=== PATIENT | male | born 1965 | race Two or more races ===

== ENCOUNTER 2023-11-05 08:04 | Outpatient (AMB) | payer MEDICAID, SELFPAY ==
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
[2023-11-05 08:18] VITALS: BMI 24.2
== END 2023-11-05 08:40 | disposition home or self-care (01) ==
PROVIDERS: PCP Internal Medicine; Referring Provider Internal Medicine; Visit Provider Orthopaedic Surgery
DX: M25.512 Pain in left shoulder (principal)
CPT/HCPCS: 99202

== ENCOUNTER 2023-11-05 09:02 | Outpatient (REF) | payer MEDICAID, OTHER, SELFPAY ==
--- NOTE | ~2023-11-05 | XR_ITS ---
EXAMINATION: XR SHOULDER, LEFT CLINICAL INFORMATION: Pain. COMPARISON: None available. TECHNIQUE: AP neutral and scapular Y views of the left shoulder are submitted. FINDINGS: Bony alignment and mineralization are normal. The glenohumeral joint is intact and shows mild osteoarthritic change. There is step-off of the acromioclavicular joint by one shaft width. The coracoclavicular interval is normal and shows coarse calcifications. 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 No acute fracture or dislocation is seen. There is no soft tissue calcification or foreign body. There is cortical irregularity and subcortical cyst formation of the greater tuberosity of the proximal left humerus. No soft tissue calcification or foreign body is seen. There is no left pneumothorax. XR/XR shoulder LT min 2V IMPRESSION: 1. There is mild osteoarthritic change of the left glenohumeral joint. 2. 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 3. Findings suggest left rotator cuff impingement, without hiro calcific tendinitis noted.
== END 2023-11-05 09:03 | disposition home or self-care (01) ==
LOC: HO.HOSX 09:02
PROVIDERS: Visit Provider Orthopaedic Surgery
DX: M25.512 Pain in left shoulder (principal)
CPT/HCPCS: 73030; 99202

== ENCOUNTER 2023-12-15 08:20 | Outpatient (REF) | payer MEDICAID, SELFPAY ==
[2023-12-15 14:32] LABS: MANUAL DIFF FLAG NO
[2023-12-15 14:40] LABS: Basophils Percent Auto 0.4 % (0-2); Eosinophils Absolute Auto 0.1 X10*3/uL (0.0-0.4); Eosinophils Percent Auto 1.6 % (0-4); Hematocrit 40.8 % (42.0-52.0); Hemoglobin 12.6 g/dl (14.0-18.0); Imm Gran Abs Auto 0.01 X10*3/uL (0.00-0.03); Imm Gran Pct Auto 0.2 % (0.0-0.4); Lymphocytes Absolute Auto 1.5 X10*3/uL (1.2-4.9); Lymphocytes Percent Auto 27.7 % (20-40); Mean Corpuscular HGB Conc 30.9 g/dl (31.0-36.0); Mean Corpuscular Hemoglobin 22.9 pg (27.0-33.0); Monocytes Absolute Auto 0.5 X10*3/uL (0.1-1.2); Monocytes Percent Auto 9.3 % (2-11); Neutrophils Absolute Auto 3.3 x10*3/uL (2.0-8.3); Neutrophils Percent Auto 60.8 % (45-73); Platelet Count 205 X10*3/uL (160-400); Red Blood Count 5.51 X10*6/uL (4.60-5.80); Red Cell Distribution Width 15.9 % (11.0-16.0); White Blood Count 5.5 X10*3/uL (4.8-10.8)
[2023-12-15 15:00] LABS: Alanine Aminotransferase 21 U/L (0-40); Albumin Level 4.3 g/dL (3.5-5.0); Alkaline Phosphatase 91 U/L (39-117); Anion Gap 14 (12-20); Aspartate Amino Transferase 26 U/L (5-37); Bilirubin Total 0.8 mg/dL (0.0-1.0); Blood Urea Nitrogen 15 mg/dL (9-16); Calcium 9.6 mg/dL (8.4-10.2); Carbon Dioxide 27 mmol/L (22-29); Chloride 104 mmol/L (96-108); Cholesterol 188 mg/dL (<200); Estimated Glomerular Filt Rate > 60; Glucose Random 77 mg/dL (60-115); HDL Cholesterol 70 mg/dL (>40); LDL Cholesterol Calculated 105 mg/dL (<100); Potassium 4.4 mmol/L (3.3-5.1); Sodium 141 mmol/L (135-145); Total Protein 7.3 g/dL (6.5-8.0); Triglycerides 66 mg/dL (<150)
[2023-12-15 15:17] LABS: TSH reflex Free T4 2.03 uIU/mL (0.32-4.0)
[2023-12-16 09:42] LABS: HIV AB/AG Nonreactive (Nonreactive); HIV Num 1 0.05 S/CO (0.00-0.99); ~HepC Num1 0.11 S/CO (0.00-0.79); ~Hepatitis C Antibody Nonreactive (Nonreactive)
== END 2023-12-15 08:21 | disposition home or self-care (01) ==
LOC: HO.CHCLDS 08:20
PROVIDERS: Visit Provider Family Medicine
DX: R03.0 Elevated blood-pressure reading, without diagnosis of hypertension (principal); Z13.29 Encounter for screening for other suspected endocrine disorder
CPT/HCPCS: 36415; 80053; 80061; 84443; 85025; 86803; 87389

== ENCOUNTER 2023-12-23 08:52 | Outpatient (AMB) | payer MEDICAID, SELFPAY ==
[2023-12-23 08:58] VITALS: BMI 24.2
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
== END 2023-12-23 09:16 | disposition home or self-care (01) ==
PROVIDERS: PCP Internal Medicine; Visit Provider Orthopaedic Surgery
DX: M75.42 Impingement syndrome of left shoulder (principal); M75.120 Complete rotator cuff tear or rupture of unspecified shoulder, not specified as traumatic; M19.012 Primary osteoarthritis, left shoulder
CPT/HCPCS: 99213

== ENCOUNTER → 2023-12-23 08:52 | Outpatient (BNVA) | payer MEDICAID, SELFPAY | PROVIDERS: PCP Internal Medicine; Visit Provider Orthopaedic Surgery | DX: M25.512 Pain in left shoulder (principal) | CPT/HCPCS: 99212 ==

== ENCOUNTER 2024-01-09 09:03 | Outpatient (AMB) | payer MEDICAID, SELFPAY ==
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
[2024-01-09 10:23] VITALS: BMI 24.2
== END 2024-01-09 11:04 | disposition home or self-care (01) ==
PROVIDERS: PCP Internal Medicine; Referring Provider Internal Medicine; Visit Provider Orthopaedic Surgery
DX: M75.102 Unspecified rotator cuff tear or rupture of left shoulder, not specified as traumatic (principal)
CPT/HCPCS: 99214

== ENCOUNTER → 2024-01-09 09:03 | Outpatient (BNVA) | payer MEDICAID, SELFPAY | PROVIDERS: PCP Internal Medicine; Visit Provider Orthopaedic Surgery | DX: M75.102 Unspecified rotator cuff tear or rupture of left shoulder, not specified as traumatic (principal) | CPT/HCPCS: 99212 ==

== ENCOUNTER 2024-01-28 07:00 | Day surgery (SDC) | payer MEDICAID, SELFPAY ==
[2024-01-26 07:51] VITALS: BMI 24.2
[2024-01-28] VITALS (7 sets, daily range): BP systolic 136–158; BP diastolic 50–87; PULSE 45–55; RESP 12–16; TEMP 36.1–36.2; O2SAT 94–97; BMI 24.3
[2024-01-28] MEDS: Lactated Ringers 1,000 ML 50 ML IVCONT (07:54)
--- NOTE | 2024-01-28 09:00 | P.CONAN_ITS ---
HPI - Anesthesia Eval Consult details Narrative: 58 yo M presenting for left arthroscopic rotator cuff repair PMFSH Active Problems Active Problems: All Active Problems Rotator cuff tear, left (Acute) Left shoulder pain (Acute) Past Medical History Medical History (Updated 01/28/24 @ 07:12 by Janine Barboza RN) Asthma Family History Family history of problems with anesthesia: No Surgical History Surgical History (Updated 01/28/24 @ 07:14 by Janine Barboza RN) History of facial surgery Hx of shoulder surgery History of Problems with Anesthesia: No Social History Social History Patient Tobacco Use Status: Current someday Tobacco user Tobacco use type: Cigarette Use of substances other than those prescribed or required for medical reasons: No Are you DNR?: No Advance Directives: No Advance Directives Information Provided: Yes Current occupational status: employed Current occupation: [employer], Right hand dominant Meds Allergies Allergy/AdvReac Type Severity Reaction Status Date / Time No Known Allergies Allergy Verified 01/28/24 07:14 [No Known Allergies*] Active Medications: Current Medications Lactated Ringer's (Lr) 1,000 mls @ 50 mls/hr IVCONT .Q20H CANDACE Last Admin: 01/28/24 07:54 Dose: 50 mls/hr Home Medications ?Medication ?Instructions ?Recorded ?Confirmed ?Last Taken ?Type bupropion HCl 150 mg 24 hr tablet, 150 mg PO QAM 11/05/23 01/28/24 Unknown History extended release hydroxyzine HCl 50 mg tablet 50 mg PO BEDTIME 11/05/23 01/28/24 Unknown History quetiapine 100 mg tablet 100 mg PO DAILY 11/05/23 01/28/24 Unknown History albuterol sulfate 90 mcg/actuation 2 puff inhalation Q4H PRN wheezing 01/28/24 01/28/24 Unknown History aerosol inhaler (Ventolin HFA) multivit,Ca,min-iron 8 mg-folic 1 tab PO DAILY 01/28/24 01/28/24 Unknown History acid 200 mcg-lycopene 600 mcg tablet (Centrum Men) Exam Exam Date and Time: January 28, 2024 0845 Height,Weight and Vital Signs: Height 5 ft 6 in Weight 68.22 kg Last Vital Signs Temp 97.2 F 01/28/24 07:37 Pulse 50 01/28/24 07:37 Resp 15 01/28/24 07:37 BP 136/75 01/28/24 07:37 Pulse Ox 97 01/28/24 07:37 O2 Del Method Room Air 01/28/24 07:37 Airway Mallampati Class: I TM Dist: >3cm Neck ROM: Full Denture: Upper Loose/Missing/Broken Teeth: Yes (multiple missing teeth bottom jaw) Heart: S1S2 Lungs: CTAB Assessment and Plan Assessment Anesthesia Assessment: Anesthesia Plan Discussed and Chart Reviewed Final Anesthetic Review Family History of Problems with Anesthesia: No History of Problems with Anesthesia: No NPO: Yes ASA Class: II Final Preanesthetic Review: No Changes in Pt Med Stat, Meds/Allgs Chart Reviewed, Consent Obtained/Reviewed (nursing informatics specialist at bedside) and Anes Risks/Benef Reviewed Patient Risk: Low Procedure Risk: Intermediate Anesthetic Plan Anesthetic Plan: GA, Regional Block (left brachial plexus block) and Agree w/ Assess. and Plan Disposition: Standard PACU
--- NOTE | 2024-01-28 09:12 | MHC.SHP ---
Pre-Procedural Eval Section A - 24 Hr Update-Section A only Date of Service: 01/28/24 The patient is an INPATIENT: No Changes since office visit: No Cold of Flu in the past 2 weeks, No New Medical Problems, No Changes in Medication and No Patient answered all questions The patient has been examined within 24 hours of the surgical procedure. The History & Physical has been completed within 30 days and I have reviewed it.: Yes Section B - Complete if H&P > 30 days Chief Complaint: Complete rotator cuff tear or rupture Allergies: Allergies Allergy/AdvReac Type Severity Reaction Status Date / Time No Known Allergies Allergy Verified 01/28/24 07:14 [No Known Allergies*] Plan I have reviewed the history and physical and performed a pertinent physical examination on my patient. No changes have occurred unless specified. Time Spent With Patient Time: Total time managing care of this patient today ____ minutes.
--- NOTE | 2024-01-28 11:54 | PM.OP ---
Brief Operative Note Date of Service: 01/28/24 Pre-op diagnosis: left shoulder rtc re-tear Post-op diagnosis: same Procedure: Revision right rotator cuff tear Implants: De Paz and nephew Helacoil 5.5 x 2 and 4.75 double loaded helacoil x 2 Regeneten medicum bioinductive collagen graft Surgeon: Anton Sauceda MD Anesthesia: GETA and regional Was an Electro Optical Engineer used for this Procedure?: No Estimated blood loss (mL): 25 IV fluids (mL): 1,000 Pathology: none sent Condition: stable Disposition: PACU
--- NOTE | 2024-02-23 14:17 | W.PM.OPN ---
Operative Note Operative Note Date of Service: 01/28/24 Narrative: Date of Service: 01/28/24 Pre-op diagnosis: left shoulder rtc re-tear Post-op diagnosis: same Procedure: Revision right rotator cuff tear Implants: De Paz and nephew Helacoil 5.5 x 2 and 4.75 double loaded helacoil x 2 Regeneten medicum bioinductive collagen graft Surgeon: Anton Sauceda MD Anesthesia: GETA and regional Was an Theater Usher used for this Procedure?: No Estimated blood loss (mL): 25 IV fluids (mL): 1,000 Pathology: none sent Condition: stable Disposition: PACU Procedure in detail: Patient was brought to the operating room and placed the the beach chair position. All bony prominences were well padded and the limb was prepped and draped in standard sterile fashion. A time out was called to identify proper site, proper procedure and proper surgeon. IV antibiotics per weight were administered. I began by making a posterolateral stab incision with a 15 blade. A blunt trochar was placed into the glenohumeral joint and I insufflated the joint with saline and a 30 degree arthroscope was placed. I established an outside- in anterior portal just distal to the biceps tendon. I then began my inspection of the glenohumeral joint. The biceps had already been tenotomized and there was obvious undersurface rotator cuff tearing. The cartilage surfaces were normal. I debrided slightly the anterior interval. The subscapularis was intact. I then removed the trochar and entered the subacromial space. A direct lateral portal was then established and I performed a bursectomy. The cuff was then examined. There was a full thickness tear of the supraspinatus without retraction. There was evidence of prior surgery with suture and suture anchor present. I removed the extraneous suture material and the suture anchors and examined the cuff. There was a full-thickness tear of the supraspinatus without retraction but the quality of the tissue was poor. The tear was mobile. I placed two medial row double loaded anchors after using a tap just adjacent to the articular cartilage and then brought the suture limbs ( 8) through the medial cuff. I then debrided the bare area down to bleeding bone and, using a cross bridge configuration, brought 4 limbs to each of two lateral 5.0 anchors. This re-approximated the cuff anatomy anatomically. Given the tissue quality I elected to place a Regeneten collagen bio inductive patch over the repair. Peak tereza were used to adhere this to the medial cuff and bone anchors laterally. This was placed through a direct lateral portal. Once I was satisfied with the repair final images were captured and I removed all instrumentation. Portals were closed with nylon. Patient was placed in an abduction sling, extubated and brought to the recovery room in stable condition. There were no known complications.
== END 2024-01-28 13:41 | disposition home or self-care (01) ==
PROVIDERS: PCP Family Medicine; Visit Provider Orthopaedic Surgery
PROC: (CPT 29827; principal; 2024-01-28 09:40)
DX: M75.120 Complete rotator cuff tear or rupture of unspecified shoulder, not specified as traumatic (principal); M25.512 Pain in left shoulder; M62.81 Muscle weakness (generalized); Z98.890 Other specified postprocedural states; J45.909 Unspecified asthma, uncomplicated; Z79.899 Other long term (current) drug therapy; F17.210 Nicotine dependence, cigarettes, uncomplicated
CPT/HCPCS: 29827; C1713; C1763; J0131; J0171; J0690; J1100; J2250; J2405; J2704; J2795; J3010

== ENCOUNTER → 2024-01-28 07:00 | Outpatient (BNV) | payer MEDICAID, SELFPAY | PROVIDERS: PCP Family Medicine; Visit Provider Orthopaedic Surgery | DX: S46.012A Strain of muscle(s) and tendon(s) of the rotator cuff of left shoulder, initial encounter (principal) | CPT/HCPCS: 29827 ==

== ENCOUNTER 2024-02-05 13:18 | Outpatient (AMB) | payer MEDICAID, SELFPAY ==
--- NOTE | 2024-02-05 13:34 | MHC.OFFVIS ---
Intake Visit Reasons: PO LT RTC Repair 01/28/24 NE Intake Note: Raheem is a 58 year old right hand dominant male who presents today for a post op appointment s/p left RTC repair 01/28/24 NE. Patient reports he is still having pain. He expressed that he slipped and fell in the bathroom on 02/02/24 and it caused him more pain. Allergies No Known Allergies [No Known Allergies*] Allergy (Verified 02/05/24 13:46) HPI HPI PO LT RTC Repair 01/28/24 NE: Details: 58-year-old right hand dominant male, who is Chilean speaking, presents in the office today 8 days status post left shoulder rotator cuff repair, which was performed on 01/28/[address] Sauceda. ? ? While in the office today, the patient reports he fell in the bathroom after giving his granddaughter on 02/02/2024. He states this caused him an increase in pain. ? ? Patient reports physical therapy has not contacted him yet.? ? Patient reports that when he fell in the bathroom, he hit his right elbow. ? ? Patient reports working at [employer] and would like to discuss returning to work at the end of the month. He states he is working to maintain less hours. ? [facility] Medical History (Updated 01/28/24 @ 07:12 by Janine Barboza RN) Asthma Surgical History (Updated 02/05/24 @ 15:25 by Trinity Blanton) History of facial surgery Hx of shoulder surgery Social History Patient Tobacco Use Status: Current someday Tobacco user Tobacco use type: Cigarette Current occupational status: employed Current occupation: [employer], Right hand dominant Review of Systems Const All systems reviewed & are unremarkable except as noted in HPI and below Physical Exam Const General: cooperative, healthy appearing and no acute distress Resp Effort & Inspection: normal respiratory effort and able to speak in complete sentences Cardio Rate: regular rate Peripheral pulses: Peripheral pulses 2+ throughout GI Palpation (GI): Soft to palpation Skin Lesions: no lesions Rashes: no rashes Extrem Other: Left shoulder: Incision site is clean, dry, and intact. Sutures are intact. No surrounding erythema or drainage. No signs of infection. Forward flexion and abduction to 45 degrees. External rotation to neutral. NVI.? Assessment & Plan Assessment & Plan (1) S/P left rotator cuff repair: Comment: 01/28/2024 NE Code(s): Z98.890 - Other specified postprocedural states Category: Surgical Plan Mr. Kip Haynes is a 58-year-old right hand dominant male, who is Chilean speaking, presents in the office today 8 days status post left shoulder rotator cuff repair, which was performed on 01/28/[address] Sauceda. ? ? While in the office today, the patient reports he fell in the bathroom after giving his granddaughter on 02/02/2024. He states this caused him an increase in pain. ? ? Patient reports physical therapy has not contacted him yet.? ? Patient reports that when he fell in the bathroom, he hit his right elbow. ? ? Patient reports working at [employer] and would like to discuss returning to work at the end of the month. He states he is working to maintain less hours.? ? Sutures were removed and steri-stripes were applied. At this time, the patient is not currently scheduled for physical therapy. The office will reach out to the physical therapy office?to get the patient scheduled as soon as possible to work on gentle ROM. A new order was placed today. I discussed with the patient that we anticipate he will remain out of work for a minimum of three months, which could be extending. The patient presented to the office today without the abduction pillow attached to the sling. We educated the patient on how important this was for proper healing of the left rotator cuff repair. We offered the patient to come into the office for a sling fitting adjustment if needed. A refill of oxycodone-acetaminophen 5-325 mg PO Q4H PRN was sent to the pharmacy. Follow-up will be in four weeks with Dr. Sauceda, or sooner if needed. ? Orders: Orders PT Evaluation and Treatment 02/05/24 M75.102 - Unspecified rotator cuff tear or rupture of left shoulder, not specified as traumatic Medications: Refilled oxycodone-acetaminophen 5-325 mg (Percocet) Partial Fill upon patient request. 1 tab PO Q4H PRN 30 tabs 0RF pain Patient Instructions: Scribed by Trinity Blanton medical clerical assistant, for Shakira Chavis PA-C on 02/05/2024 at 3:02 pm, EST.? Coding Level of Care Code Global (20140) Diagnoses S/P left rotator cuff repair Z98.890
== END 2024-02-05 14:15 | disposition home or self-care (01) ==
PROVIDERS: PCP Internal Medicine; Visit Provider Physician Assistant
DX: Z98.890 Other specified postprocedural states (principal)
CPT/HCPCS: 99024

== ENCOUNTER → 2024-02-05 13:18 | Outpatient (BNVA) | payer MEDICAID, SELFPAY | PROVIDERS: PCP Internal Medicine; Visit Provider Physician Assistant | DX: Z47.89 Encounter for other orthopedic aftercare (principal); Z98.890 Other specified postprocedural states | CPT/HCPCS: 99212 ==

== ENCOUNTER 2024-02-20 11:32 | Outpatient (AMB) | payer MEDICAID, SELFPAY ==
[2024-02-20 11:34] VITALS: BP 134/79; PULSE 76; BMI 25.8
--- NOTE | 2024-02-20 11:34 | MHC.OFFVIS ---
Vital Signs 02/20/24 11:34 Height 5 ft 6 in Weight 160 lb 0.889 oz BMI 25.8 BP 134/79 Blood Pressure Location Lt brachial Position Sitting Pulse 76 Intake Visit Reasons: Colonoscopy screening Intake Note: Raheem presents in office as a new patient for colonoscopy screening. CC: Patient states that his last colonoscopy was done in [place] 5 years ago and they removed some polyps. He denies having any GI symptoms or concerns today. Log Chipper Required: Yes Log Chipper Name: [id number] Accompanied by: Self / Same As Patient Allergies No Known Allergies [No Known Allergies*] Allergy (Verified 04/07/24 09:16) HPI HPI Colonoscopy screening: Details: [age]old male here for preprocedural meeting to discuss a screening colonoscopy. He is referred by [facility]. PMX Asthma Schizophrenia Bipolar disorder Family history of colon cancer Chronic left shoulder pain * SURGICAL HISTORY Facial surgery Rotator cuff repair left shoulder Colonoscopy 5 years ago in [place] with polyps. * ALLERGIES: NKDA * [employer] LABS: Laboratory Tests 12/15/23 12/15/23 08:24 08:29 WBC 5.5 Hgb 12.6 L Hct 40.8 L MCV 74.0 L MCH 22.9 L Plt Count 205 Estimated GFR > 60 Total Bilirubin 0.8 AST 26 ALT 21 Alkaline Phosphatase 91 TSH 2.03 TODAY'S VISIT Nigerien # [employer] Live He says his last scope was 5 years ago in [place] and he had polyps. He denies any bowel or upper GI problems There are no prior problems with anesthesia or sedation. Asthma is well controlled and he denies any cardiac problems. NO ID problems. His father is a survivor of CRC and a paternal uncle. The patient had polyps removed. [facility] Medical History (Updated 04/16/24 @ 15:45 by SERENA Bacon) Left shoulder pain Rotator cuff tear, left Asthma Surgical History S/P left rotator cuff repair H/O colonoscopy History of facial surgery Hx of shoulder surgery Family History Father Colon cancer Paternal Uncle Stomach cancer Paternal Grandfather Stomach cancer Social History Alcohol intake: current Alcohol intake frequency: holidays/special occasions only Patient Tobacco Use Status: Current someday Tobacco user Tobacco use type: Cigarette Current occupational status: employed Current occupation: [employer], Right hand dominant Review of Systems Const Denies fatigue, Denies fever(s), Denies night sweats, Denies poor appetite and Denies weight loss Eyes Details: glasses Reports requires corrective lenses ENT Reports Normal hearing present, Denies dysphagia, Denies odynophagia, Denies throat swelling and Denies tongue swelling Card Reports no additional complaints Resp Reports no additional complaints GI Details: Denies abdominal pain, Denies melena, Denies bloating, Denies hematochezia, Denies constipation, Denies GI cramping, Denies dysphagia, Denies excessive flatus, Denies early satiety, Denies heartburn, Denies diarrhea, Denies nausea, Denies odynophagia, Denies vomiting and Denies hematemesis Skin/Breast Denies pruritus, Denies lesions, Denies rash and Denies jaundice Neuro Reports Normal hearing present and Denies Abnormal speech present Endo Denies fatigue Aller/Immun Denies throat swelling and Denies tongue swelling Physical Exam Vital Signs: Last Vital Signs Pulse 76 02/20/24 11:34 BP 134/79 02/20/24 11:34 BMI result Body Mass Index 25.8 Const General: cooperative, no acute distress, well developed and well groomed Nutritional Appearance: average body habitus and well nourished Orientation/consciousness: oriented to person, oriented to place and oriented to time Limitations: language barrier HEENT Head: Yes normocephalic and Yes atraumatic Teeth and gingiva: poor dentition Eyes General: appearance normal, both eyes and all related structures Pupils: Equal, round and reactive pupils present Neck Neck: Yes normal visual inspection and Yes no lymphadenopathy Thyroid: Thyroid normal Resp Effort & Inspection: normal respiratory effort and able to speak in complete sentences Auscultation: clear to auscultation bilaterally Cardio Rate: regular rate Rhythm: regular rhythm Heart sounds: Normal, physiologic split S2 sound present Peripheral pulses: radial pulses present and posterior tibial pulses present GI Inspection: No distended and No Abdominal panniculus present Palpation (GI): Soft to palpation, nontender, no guarding, not rigid and No hepatosplenomegaly present Percussion: Yes normal to percussion Auscultation: normal bowel sounds Rectal Exam - Male: Yes deferred Skin General skin exam: no rashes or lesions noted, turgor normal, skin not dry, no jaundice, No spider nevi and no striae Rashes: no rashes Nails: normal Neuro General: oriented to person, oriented to place and oriented to time Cranial nerves: Yes Equal, round and reactive pupils present and Yes Normal hearing present Speech: No Abnormal speech present Extrem General: Yes normal to inspection, No clubbing, No cyanosis and No edema Psych Appearance: grossly normal and well kempt Mental Status: mental status grossly normal Speech and movement: Normal speech and movement present Affect: normal affect Attitude: cooperative Thought process: Normal thought process present and not confabulating Thought content: Normal thought content present Insight: Limited insight present (Psych) Judgement: Limited judgement present (Psych) Assessment & Plan Assessment & Plan (1) Tubular adenoma of colon: Comment: 2019 in [place]=polyps per pt report Code(s): D12.6 - Benign neoplasm of colon, unspecified Category: Medical (2) Family history of colon cancer in father: Code(s): Z80.0 - Family history of malignant neoplasm of digestive organs Category: Medical Plan Nigerien # [employer] He says his last scope was 5 years ago in [place] and he had polyps. He denies any bowel or upper GI problems There are no prior problems with anesthesia or sedation. Asthma is well controlled and he denies any cardiac problems. NO ID problems. His father is a survivor of CRC and a paternal uncle. The patient had polyps removed. Orders: Orders Colonoscopy - GI Use Only 02/20/24 D12.6 - Benign neoplasm of colon, unspecified Medications: New peg 3350-electrolytes 236-22.74-6.74 -5.86 gram (Golytely) until fecal effluent is clear; do not exceed a total volume of 2,000 mL 240 mL PO Q10M 4,000 mL 0RF 1 day Z12.11 - Encounter for screening for malignant neoplasm of colon bisacodyl (Dulcolax (bisacodyl)) 10 mg (2 x 5 mg) PO BEDTIME 4 tabs 0RF 2 days Coding Level of Care Code New Pt Level 3 (30079) Diagnoses Tubular adenoma of colon D12.6 Family history of colon cancer in father Z80.0
== END 2024-02-20 11:59 | disposition home or self-care (01) ==
PROVIDERS: PCP Internal Medicine; Visit Provider Nurse Practitioner
DX: D12.6 Benign neoplasm of colon, unspecified (principal); Z80.0 Family history of malignant neoplasm of digestive organs
CPT/HCPCS: 99203

== ENCOUNTER → 2024-02-20 11:32 | Outpatient (BNVA) | payer MEDICAID, SELFPAY | PROVIDERS: PCP Internal Medicine; Visit Provider Nurse Practitioner | DX: Z01.818 Encounter for other preprocedural examination (principal); D12.6 Benign neoplasm of colon, unspecified; Z80.0 Family history of malignant neoplasm of digestive organs | CPT/HCPCS: 99212 ==

== ENCOUNTER 2024-03-05 10:51 | Outpatient (AMB) | payer MEDICAID, SELFPAY ==
[2024-03-05 10:53] VITALS: BMI 25.8
--- NOTE | 2024-03-05 10:53 | MHC.OFFVIS ---
Vital Signs 03/05/24 10:53 Height 5 ft 6 in Weight 160 lb 0.889 oz BMI 25.8 Intake Visit Reasons: PO LT RTC Repair 01/28/24 NE Intake Note: Raheem is a 58 year old right hand dominant male who presents today for a post op appointment s/p left RTC repair 01/28/24 NE. Patient took a a fall on 02/02/24 striking his elbow. He remains out of work at this time. Due to the fall, patient is complaining today of left elbow pain that radiates up the left arm. Patient reports he has been taking Percocet BID without relief. He would like to know what can be done for his pain as well as more details of what was done during his surgery. Allergies No Known Allergies [No Known Allergies*] Allergy (Verified 03/05/24 10:53) HPI HPI PO LT RTC Repair 01/28/24 NE: Details: Raheem is a 58 year old right hand dominant male who presents today for a post op appointment s/p left RTC repair 01/28/24 NE. Patient took a a fall on 02/02/24 striking his elbow. He remains out of work at this time. Due to the fall, patient is complaining today of left elbow pain that radiates up the left arm. Patient reports he has been taking Percocet BID without relief. He would like to know what can be done for his pain as well as more details of what was done during his surgery. [facility] Medical History (Updated 02/20/24 @ 11:53 by SERENA Bacon) Left shoulder pain Rotator cuff tear, left Asthma Surgical History (Updated 03/05/24 @ 11:05 by Anton Sauceda MD) S/P left rotator cuff repair H/O colonoscopy History of facial surgery Hx of shoulder surgery Family History Father Colon cancer Paternal Uncle Stomach cancer Paternal Grandfather Stomach cancer Social History Alcohol intake: current Alcohol intake frequency: holidays/special occasions only Patient Tobacco Use Status: Current someday Tobacco user Tobacco use type: Cigarette Current occupational status: employed Current occupation: [employer], Right hand dominant Physical Exam Vital Signs: BMI result Body Mass Index 25.8 Extrem Other: 90/70/120 portals c/d/i Assessment & Plan Assessment & Plan (1) S/P left rotator cuff repair: Comment: 01/28/2024 NE Code(s): Z98.890 - Other specified postprocedural states Category: Medical Plan: Doing well and states he is attending PT F/u 6 weeks No lifting Coding Level of Care Code Global (41022) Diagnoses S/P left rotator cuff repair Z98.890
== END 2024-03-05 11:04 | disposition home or self-care (01) ==
PROVIDERS: PCP Internal Medicine; Visit Provider Orthopaedic Surgery
DX: Z98.890 Other specified postprocedural states (principal)
CPT/HCPCS: 99024

== ENCOUNTER → 2024-03-05 10:51 | Outpatient (BNVA) | payer MEDICAID, SELFPAY | PROVIDERS: PCP Internal Medicine; Visit Provider Orthopaedic Surgery | DX: Z47.89 Encounter for other orthopedic aftercare (principal); Z98.890 Other specified postprocedural states; Z91.81 History of falling; Z87.39 Personal history of other diseases of the musculoskeletal system and connective tissue | CPT/HCPCS: 99212 ==

== ENCOUNTER 2024-03-22 14:02 | Outpatient (REF) | payer MEDICAID, SELFPAY ==
--- NOTE | ~2024-03-22 | US_ITS ---
EXAMINATION: US PELVIS, LIMITED/FOLLOW UP CLINICAL INFORMATION: Left inguinal pain. COMPARISON: None available. TECHNIQUE: High frequency linear ultrasound transducer exam in the area of clinical concern in the left groin. This study was performed with and without Valsalva. FINDINGS: A small hernia is seen with the neck measuring 2 cm in size. Fat appears to be in the hernia rather than peristalsing bowel. CT scan could always be performed for further evaluation. US/US pelvic limited IMPRESSION: Small left inguinal hernia. Electronically signed by: Jonny Tai MD 03/30/2024 12:36 AM EDT
== END 2024-03-22 14:03 | disposition home or self-care (01) ==
LOC: HO.US 14:02
PROVIDERS: PCP Internal Medicine; Visit Provider Family Medicine
DX: R10.32 Left lower quadrant pain (principal)
CPT/HCPCS: 76857

== ENCOUNTER 2024-04-07 09:10 | Outpatient (AMB) | payer MEDICAID, SELFPAY ==
--- NOTE | 2024-04-07 09:16 | A.OFFVIS_ITS ---
Vital Signs 04/07/24 09:18 Height 5 ft 5 in Weight 158 lb BMI 26.3 BP 141/83 H Blood Pressure Location Lt brachial Position Sitting Pulse 82 Intake Visit Reasons: Inguinal hernia Intake Note: Patient new consult for Ingunal hernia Patient cc: lower abdominal pain due inguinial hernia and some inflammation with walking. [employer] Lead Required: Yes Accompanied by: Self / Same As Patient Allergies No Known Allergies [No Known Allergies*] Allergy (Verified 04/07/24 09:16) HPI Comments Details: Patient presents with a several week history of symptomatic left groin pain and swelling. He was told he had hernia. He presents here for further evaluation. Patient otherwise tolerating a diet, having regular bowel habits. He does do strenuous activities as placed employment but is currently recovering from shoulder surgery. Chart was reviewed and patient evaluated [facility] Medical History (Updated 02/20/24 @ 11:53 by SERENA Bacon) Left shoulder pain Rotator cuff tear, left Asthma Surgical History S/P left rotator cuff repair H/O colonoscopy History of facial surgery Hx of shoulder surgery Family History Father Colon cancer Paternal Uncle Stomach cancer Paternal Grandfather Stomach cancer Social History Alcohol intake: current Alcohol intake frequency: holidays/special occasions only Patient Tobacco Use Status: Current someday Tobacco user Tobacco use type: Cigarette Current occupational status: employed Current occupation: [employer], Right hand dominant Physical Exam Vital Signs: Last Vital Signs Pulse 82 04/07/24 09:18 BP 141/83 H 04/07/24 09:18 BMI result Body Mass Index 26.3 Chest Other: Chest breath sounds bilaterally, HS 1 in 2 GI Other: Patient was examined both supine and standing with Valsalva. Right groin negative. Genitalia within normal limits. Moderately sized reducible left inguinal hernia Assessment & Plan Assessment & Plan (1) Left inguinal hernia: Code(s): K40.90 - Unilateral inguinal hernia, without obstruction or gangrene, not specified as recurrent Category: Surgical Plan Patient would like to go undergo repair of this. Risks, benefits, alternatives of open left inguinal hernia repair with mesh were reviewed with the patient and included but not limited to bleeding, infection, recurrence, numbness, pain, scarring the patient wished to proceed. All questions answered. Arrangements made for this. Coding Level of Care Code New Pt Level 5 (96511) Diagnoses Left inguinal hernia K40.90
[2024-04-07 09:18] VITALS: BP 141/83; PULSE 82; BMI 26.3
== END 2024-04-07 09:37 | disposition home or self-care (01) ==
PROVIDERS: PCP Family Medicine; Visit Provider Surgery
DX: K40.90 Unilateral inguinal hernia, without obstruction or gangrene, not specified as recurrent (principal)
CPT/HCPCS: 99204

== ENCOUNTER → 2024-04-07 09:10 | Outpatient (BNVA) | payer MEDICAID, SELFPAY | PROVIDERS: PCP Family Medicine; Visit Provider Surgery | DX: K40.90 Unilateral inguinal hernia, without obstruction or gangrene, not specified as recurrent (principal) | CPT/HCPCS: 99202 ==

== ENCOUNTER 2024-04-08 08:00 | Outpatient (RCR) | payer MEDICAID, SELFPAY ==
--- NOTE | 2024-02-19 11:32 | MHC.PT.EP ---
[facility] [place] Office [place] Office [place] Office [address] Roseline Gray [address] [phone] F: [phone] F: [phone] F: [phone] F: [phone] Physical Therapy Plan of Care Date of Evaluation: 02/19/24 Date of Surgery: Diagnosis: L rotator surgery on January 27 Assessment: Patient is a 58 year old R handed male who presents with s/s consistent with s/p L rotator cuff repair. He works with daily job demands including working the [employer] at [employer]. Patient past medical history includes asthma. Current impairments include pain, posture, ROM, strength, activity tolerance and functional mobility. Functional limitations include decreased ability to use LUE for all functional activities. Patient is motivated with good rehab potential. Skilled PT will address impairments and functional limitations in order to achieve goals. Frequency and Duration: The patient will be seen 2x/week for 8 weeks Short Term Goals: I with HEP - 2 weeks AROM WNL - 5 weeks Pain free out of sling in 4 weeks I with sling management - 2 weeks Senior Living Goals: Able to sleep pain free - 6 weeks Safe return to work - 8 weeks Strength 4/5 grossly - 8 weeks SPADI 30/130 or better - 8 weeks Treatment Plan: Modalities to reduce pain, spasms and effusion. Manual therapy to restore motion and function. Therapeutic exercise to improve strength and flexibility. Neuromuscular re-education for posture and balance. Therapeutic activities to return to functional activities of daily living. Electronically signed by: Jesus Metcalf, PT Please sign and return to therapist. Thank you for your referral.
--- NOTE | 2024-09-02 13:41 | MHC.PT.DC ---
[facility] [place] Office [place] Office [place] Office [address] Roseline Gray [address] [phone] F: [phone] F: [phone] F: [phone] F: [phone] Physical Therapy Discharge Report Diagnosis: L rotator surgery on January 27 Date of Surgery: Date of Evaluation: 02/19/24 Date of Discharge: 04/10/24 Treatments to Date: 9 Cancellations to Date: No Shows to Date: Discharge Status: Independent with HEP Patient Elected to Stop Discharge Summary: 04/08/24: pt progressing well with skilled PT with ROM and strength. however, we have held on progressing ex due to night pain that has been keeping him up at night. 04/05/24: pt has been complaining of pain with sleep. we have held on progress to some degree due to pain. encouraged him to ice before bed. 04/01/24: due to some soreness, we held on progression today. Lat shoulder soreness. educated in pain management through the weekend. 03/30/24: progressed strength. mild lat shoulder tissue tension and discomfort post ex. responded well to STM and PROM. 03/25/24: pt continues to progress well towards full AROM. we will progress strength NV. 03/22/24: pt progressing well. soreness after last visit so we held progression and continued with above, reviewed HEP. 03/18/24: pt progressing well with skilled PT. added cane, pulleys, isometrics. isometrics and cane added to HEP. 02/25/24: no adverse reactions from isometric initiation. continue to progress as tolerated with skilled PT. edu on brace wear. Patient is a 58 year old R handed male who presents with s/s consistent with s/p L rotator cuff repair. He works with daily job demands including working the [employer] at [employer]. Patient past medical history includes asthma. Current impairments include pain, posture, ROM, strength, activity tolerance and functional mobility. Functional limitations include decreased ability to use LUE for all functional activities. Patient is motivated with good rehab potential. Skilled PT will address impairments and functional limitations in order to achieve goals. Electronically signed by: Jesus Dixon, PT Please sign and return to therapist. Thank you for your referral.
== END 2024-09-02 13:42 | disposition home or self-care (01) ==
LOC: HO.PTCHIC 08:00
PROVIDERS: PCP Family Medicine; Visit Provider Physician Assistant
DX: M75.102 Unspecified rotator cuff tear or rupture of left shoulder, not specified as traumatic (principal)
CPT/HCPCS: 97110; 97140; 97162; 97535

== ENCOUNTER 2024-04-16 10:22 | Outpatient (AMB) | payer MEDICAID, SELFPAY ==
[2024-04-16 10:40] VITALS: BMI 26.3
--- NOTE | 2024-04-16 10:40 | MHC.OFFVIS ---
Vital Signs 04/16/24 10:40 Height 5 ft 5 in Weight 158 lb BMI 26.3 Intake Visit Reasons: PO LT RTC Repair 01/28/24 NE-6WK follow up Intake Note: Raheem is a 58 year old right hand dominant male who presents today for a post op appointment s/p left RTC repair 01/28/24 NE. Patient is requesting a letter for social security, and work. Allergies No Known Allergies [No Known Allergies*] Allergy (Verified 04/07/24 09:16) HPI HPI PO LT RTC Repair 01/28/24 NE-6WK follow up: Details: Raheem is a 58 year old right hand dominant male who presents today for a post op appointment s/p left RTC repair 01/28/24 NE. [facility] Medical History (Updated 04/16/24 @ 15:45 by SERENA Bacon) Left shoulder pain Rotator cuff tear, left Asthma Surgical History S/P left rotator cuff repair H/O colonoscopy History of facial surgery Hx of shoulder surgery Family History Father Colon cancer Paternal Uncle Stomach cancer Paternal Grandfather Stomach cancer Social History Alcohol intake: current Alcohol intake frequency: holidays/special occasions only Patient Tobacco Use Status: Current someday Tobacco user Tobacco use type: Cigarette Current occupational status: employed Current occupation: [employer], Right hand dominant Physical Exam Vital Signs: BMI result Body Mass Index 26.3 Extrem Other: Portals clean dry and intact External rotation 35 degrees Active abduction to 90 Assessment & Plan Assessment & Plan (1) S/P left rotator cuff repair: Comment: 01/28/2024 NE Code(s): Z98.890 - Other specified postprocedural states Category: Surgical Plan: Six weeks status post rotator cuff repair. He is doing well. Continue physical therapy. No lifting. May discontinue sling. Follow up 6 weeks. Coding Level of Care Code Global (80972) Diagnoses S/P left rotator cuff repair Z98.890
== END 2024-04-16 11:50 | disposition home or self-care (01) ==
PROVIDERS: PCP Family Medicine; Visit Provider Orthopaedic Surgery
DX: Z98.890 Other specified postprocedural states (principal)
CPT/HCPCS: 99024

== ENCOUNTER → 2024-04-16 10:22 | Outpatient (BNVA) | payer MEDICAID, SELFPAY | PROVIDERS: PCP Family Medicine; Visit Provider Orthopaedic Surgery | DX: Z47.89 Encounter for other orthopedic aftercare (principal); Z98.890 Other specified postprocedural states | CPT/HCPCS: 99212 ==

== ENCOUNTER 2024-04-19 08:12 | Outpatient (REF) | payer MEDICAID, SELFPAY ==
--- NOTE | ~2024-04-19 | XR_ITS ---
EXAMINATION: XR KNEE, RIGHT CLINICAL INFORMATION: 58 yo M with R knee pain, chronic send to [facility] COMPARISON: None available. TECHNIQUE: Three views of the right knee. FINDINGS: No fracture or joint effusion. Alignment is anatomic. Joint spaces are maintained. No abnormal soft tissue calcification. XR/XR knee RT 3V IMPRESSION: Normal right knee. Electronically signed by: Selvin Rosen MD 06/28/2024 08:53 AM [facility]
--- NOTE | ~2024-04-19 | XR_ITS ---
EXAMINATION: XR KNEE, LEFT CLINICAL INFORMATION: PAIN COMPARISON: None available. TECHNIQUE: Four views of the left knee. FINDINGS: No fracture or joint effusion. Alignment is anatomic. Joint spaces are maintained. Calcification at the origin of the MCL on the medial femoral condyle consistent with prior MCL injury. Minimal degenerative arthritis noted in the medial and patellofemoral compartments. There is no joint effusion. Soft tissues appear normal. XR/XR knee LT 4V IMPRESSION: 1. No acute bony abnormalities. 2. Evidence of old MCL injury. 3. Early osteoarthrosis. Electronically signed by: Selvin Rosen MD 06/28/2024 08:[address] [facility]
== END 2024-04-19 08:13 | disposition home or self-care (01) ==
LOC: HO.XRAY 08:12
PROVIDERS: PCP Family Medicine; Visit Provider Family Medicine
DX: M25.562 Pain in left knee (principal); M25.561 Pain in right knee; G89.29 Other chronic pain
CPT/HCPCS: 73562; 73564

== ENCOUNTER → 2024-04-19 08:17 | Outpatient (BNV) | payer MEDICAID, SELFPAY | PROVIDERS: PCP Family Medicine; Visit Provider Radiology Diagnostic Radiology | DX: M25.561 Pain in right knee (principal); M25.562 Pain in left knee | CPT/HCPCS: 73562; 73564 ==

== ENCOUNTER 2024-05-13 06:40 | Day surgery (SDC) | payer MEDICAID, SELFPAY ==
[2024-05-11 10:38] VITALS: BMI 26.3
--- NOTE | 2024-05-11 12:16 | P.CONAN_ITS ---
Documented by User: Indigo Keith NP 05/11/24 12:17 HPI - Anesthesia Eval Consult details Narrative: 58yo M for Left Hernia Inguinal Reducible with mesh s/p Rotator cuff 01/2024 with GA-ETT 7 PMFSH Active Problems Active Problems: All Active Problems Family history of colon cancer in father (Acute) Left inguinal hernia (Acute) S/P left rotator cuff repair (Acute) Tubular adenoma of colon (Acute) Bipolar disorder (Acute) Schizophrenia (Acute) Past Medical History Medical History Left shoulder pain Rotator cuff tear, left Asthma Family History Family History Father Colon cancer Paternal Uncle Stomach cancer Paternal Grandfather Stomach cancer Family history of problems with anesthesia: No Surgical History Surgical History S/P left rotator cuff repair H/O colonoscopy History of facial surgery Hx of shoulder surgery History of Problems with Anesthesia: No Social History Social History Alcohol intake: current Alcohol intake frequency: does not drink Patient Tobacco Use Status: Current everyday Tobacco user Tobacco use type: Cigarette Have you been hit, kicked, punched, or otherwise hurt by someone within the past year? If so, by whom?: No Are you DNR?: No Advance Directives: No Advance Directives Information Provided: Yes Recently lost weight without trying: No Nutrition Risks: No Nutritional Risk Current occupational status: employed Current occupation: [employer], Right hand dominant Meds Allergies Allergy/AdvReac Type Severity Reaction Status Date / Time No Known Allergies Allergy Verified 04/07/24 09:16 [No Known Allergies*] Home Medications ?Medication ?Instructions ?Recorded ?Confirmed ?Last Taken ?Type bupropion HCl 150 mg 24 hr tablet, 150 mg PO QAM 11/05/23 05/13/24 05/12/24 History extended release quetiapine 100 mg tablet 100 mg PO DAILY 11/05/23 05/13/24 05/12/24 History albuterol sulfate 90 mcg/actuation 2 puff inhalation Q4H PRN wheezing 01/28/24 05/13/24 05/13/23 History aerosol inhaler (Ventolin HFA) gabapentin 300 mg capsule 300 mg PO TID 02/20/24 05/13/24 05/13/24 History Exam Height,Weight and Vital Signs: Height 5 ft 5 in Weight 71.668 kg Pertinent Lab Results Pertinent Lab Results: Laboratory Tests 12/15/23 12/15/23 08:24 08:29 WBC 5.5 Hgb 12.6 L Hct 40.8 L Plt Count 205 Sodium 141 Potassium 4.4 Chloride 104 Carbon Dioxide 27 BUN 15 Creatinine 0.94 Assessment and Plan Assessment Anesthesia Assessment: Chart Reviewed Final Anesthetic Review Family History of Problems with Anesthesia: No History of Problems with Anesthesia: No Documented by User: Vilma Hnedrix MD 05/13/24 09:11 HPI - Anesthesia Eval Consult details Narrative: 58yo M for repair of Reducible Left Inguinal Hernia with mesh s/p Rotator cuff 01/2024 with GA-ETT 7 PMFSH Active Problems Active Problems: All Active Problems Family history of colon cancer in father (Acute) Left inguinal hernia (Acute) S/P left rotator cuff repair (Acute) Tubular adenoma of colon (Acute) Bipolar disorder (Acute) Schizophrenia (Acute) Smoker Past Medical History Medical History Left shoulder pain Rotator cuff tear, left Asthma Family History Family History Father Colon cancer Paternal Uncle Stomach cancer Paternal Grandfather Stomach cancer Family history of problems with anesthesia: No Surgical History Surgical History S/P left rotator cuff repair H/O colonoscopy History of facial surgery Hx of shoulder surgery History of Problems with Anesthesia: No Social History Social History Alcohol intake: current Alcohol intake frequency: does not drink Patient Tobacco Use Status: Current everyday Tobacco user Tobacco use type: Cigarette Have you been hit, kicked, punched, or otherwise hurt by someone within the past year? If so, by whom?: No Are you DNR?: No Advance Directives: No Advance Directives Information Provided: Yes Recently lost weight without trying: No Nutrition Risks: No Nutritional Risk Current occupational status: employed Current occupation: [employer], Right hand dominant Meds Allergies Allergy/AdvReac Type Severity Reaction Status Date / Time No Known Allergies Allergy Verified 04/07/24 09:16 [No Known Allergies*] Home Medications ?Medication ?Instructions ?Recorded ?Confirmed ?Last Taken ?Type bupropion HCl 150 mg 24 hr tablet, 150 mg PO QAM 11/05/23 05/13/24 05/12/24 History extended release quetiapine 100 mg tablet 100 mg PO DAILY 11/05/23 05/13/24 05/12/24 History albuterol sulfate 90 mcg/actuation 2 puff inhalation Q4H PRN wheezing 01/28/24 05/13/24 05/13/23 History aerosol inhaler (Ventolin HFA) gabapentin 300 mg capsule 300 mg PO TID 02/20/24 05/13/24 05/13/24 History Exam Height,Weight and Vital Signs: Height 5 ft 5 in Weight 71.668 kg Vital Signs Temp Pulse Resp BP Pulse Ox O2 Del Method 05/13/24 06:56 98.5 F 70 20 147/85 H 96 Room Air Pertinent Lab Results Pertinent Lab Results: Laboratory Tests 12/15/23 12/15/23 08:24 08:29 WBC 5.5 Hgb 12.6 L Hct 40.8 L Plt Count 205 Sodium 141 Potassium 4.4 Chloride 104 Carbon Dioxide 27 BUN 15 Creatinine 0.94 Airway Mallampati Class: III TM Dist: >3cm Neck ROM: Full Denture: Upper Partial: Lower Loose/Missing/Broken Teeth: Yes (Denies broken or loose teeth) Heart: RRR Lungs: CTAB Assessment and Plan Assessment Anesthesia Assessment: Anesthesia Plan Discussed and Chart Reviewed Final Anesthetic Review Family History of Problems with Anesthesia: No History of Problems with Anesthesia: No NPO: Yes ASA Class: II Final Preanesthetic Review: No Changes in Pt Med Stat, Meds/Allgs Chart Reviewed, Consent Obtained/Reviewed and Anes Risks/Benef Reviewed Patient Risk: Intermediate Procedure Risk: Low Assessment/Block/Sedation in SS: Assess/Block/Sedation-SS Anesthetic Plan Anesthetic Plan: GA Disposition: Standard PACU
--- NOTE | 2024-05-12 12:26 | MHC.SHP ---
Pre-Procedural Eval Section A - 24 Hr Update-Section A only Date of Service: 05/13/24 The patient is an INPATIENT: No Changes since office visit: No Cold of Flu in the past 2 weeks, No New Medical Problems, No Changes in Medication and No Patient answered all questions Section B - Complete if H&P > 30 days Chief Complaint: Unilateral inguinal hernia, without obstruction or Allergies: Allergies Allergy/AdvReac Type Severity Reaction Status Date / Time No Known Allergies Allergy Verified 04/07/24 09:16 [No Known Allergies*] Review of Systems Sugical H&P ROS: Negative: Constitution, Cardiovascular, Respiratory, Neurological, Psychiatric, Hem-Onc, Allergic/Immunologic, Gastrointestinal, Genitourinary, Musculoskeletal, Integumentary, Endocrine and Eyes/Ears/Nose/Throat Exam Surgical H&P Exam: Normal: HEENT, Normal: Heart, Normal: Lungs, Normal: Extremities, Normal: Abdomen, Normal: Skin and Normal: Neurological Plan I have reviewed the history and physical and performed a pertinent physical examination on my patient. No changes have occurred unless specified. Time Spent With Patient Time: Total time managing care of this patient today ____ minutes.
[2024-05-13] VITALS (9 sets, daily range): BP systolic 132–157; BP diastolic 81–99; PULSE 63–70; RESP 12–20; TEMP 36.9–37.1; O2SAT 94–96; BMI 26.4
[2024-05-13] MEDS: Lactated Ringers 1,000 ML 100 ML IVCONT (07:15)
--- NOTE | 2024-05-13 09:57 | P.OP_ITS ---
Operative Note Operative Note Date of Service: 05/13/24 Narrative: Preoperative diagnosis: [] Large symptomatic left inguinal hernia Postop diagnosis: [] The same Procedure [] left open inguinal herniorrhaphy with Bard mesh Surgeon: [] Luca Water Pipe Installer: [] Slim Type of Anesthesia: [] General Indication for surgery: [] Very large direct left inguinal hernia. No indirect hernia demonstrated. Findings: [] Patient brought to the operating room, placed on operative table supine position, after an adequate level of general anesthesia was induced, the left groin was prepped and draped in usual sterile fashion using a small left para inguinal incision, this carried down through skin, subcutaneous tissue, Sherman's fascia. External oblique fibers were opened their direction with care to isolate and preserve the ilioinguinal nerve throughout the procedure. Exploration of the cord demonstrated no indirect hernia. A very large direct hernia was demonstrated and reduced. A Bard plug was placed in this defect and sutured inferiorly to the inguinal ligament, and superiorly to the transversalis fascia using interrupted 0 Ethibond suture. At completion of procedure, mesh was in good position with no tension or gaps. Wound was irrigated, secured hemostasis, and closed in the following manner; External oblique fascia was closed using running 2-0 Vicryl suture. Sherman's fascia was reapproximated using interrupted 3-0 Vicryl suture. Interrupted inverted deep dermal 3-0 Vicryl sutures followed by running subcuticular 4-0 Vicryl sutures were placed. Steri-Strips and sterile dressings were applied. Patient went preemptive ilioinguinal block and then local wound infiltration at completion with 0.5% Marcaine/1% lidocaine. Sponge, needle, and instrument counts were reported correct. Patient tolerated the procedure well and emerged from anesthesia stable condition. EBL minimal. Ipsilateral testicle was intrascrotal at completion of the procedure.
[2024-05-13] MEDS: oxyCODONE HCl Immed Release 5 MG TABLET PO (10:34)
[2024-05-13] MEDS: fentaNYL citrate/PF 100 MCG/2 ML VIAL 25 MCG IVPUSH ×2 (10:34→10:40)
== END 2024-05-13 13:00 | disposition home or self-care (01) ==
PROVIDERS: PCP Internal Medicine; Visit Provider Surgery
PROC: (CPT 49505; principal; 2024-05-13 08:50)
DX: K40.90 Unilateral inguinal hernia, without obstruction or gangrene, not specified as recurrent (principal); J45.909 Unspecified asthma, uncomplicated; Z79.899 Other long term (current) drug therapy; Z98.890 Other specified postprocedural states; F17.210 Nicotine dependence, cigarettes, uncomplicated
CPT/HCPCS: 49505; C1781; J0690; J1100; J1885; J2003; J2405; J2704; J3010

== ENCOUNTER → 2024-05-13 06:40 | Outpatient (BNV) | payer MEDICAID, SELFPAY | PROVIDERS: PCP Internal Medicine; Visit Provider Surgery | DX: K40.90 Unilateral inguinal hernia, without obstruction or gangrene, not specified as recurrent (principal) | CPT/HCPCS: 49505 ==

== ENCOUNTER 2024-05-25 10:53 | Outpatient (AMB) | payer MEDICAID, SELFPAY ==
--- NOTE | 2024-05-25 10:54 | MHC.OFFVIS ---
Intake Visit Reasons: sp hernia repair Intake Note: Patient here s/p LIH repair w/mesh on 05-13-24. Reports incisions healing well. Patient c/o: mild pain when sitting. Steri strips removed in office. Assistant Professor Of Forestry Required: Yes Assistant Professor Of Forestry Name: Renetta ELLISON Accompanied by: Self / Same As Patient Allergies No Known Allergies [No Known Allergies*] Allergy (Verified 05/25/24 10:59) HPI Comments Details: Patient was just for follow-up status post hernia repair. Aside from incisional discomfort which is improving, he is otherwise doing well. He is tolerating a diet. He is having regular bowel habits. He would like to start work which has light duty available for him. [facility] Medical History Left shoulder pain Rotator cuff tear, left Asthma Surgical History (Updated 05/25/24 @ 11:01 by Nitin Segovia MD) Left inguinal hernia (05/13/24) S/P left rotator cuff repair H/O colonoscopy History of facial surgery Hx of shoulder surgery Family History Father Colon cancer Paternal Uncle Stomach cancer Paternal Grandfather Stomach cancer Social History Alcohol intake: current Alcohol intake frequency: does not drink Patient Tobacco Use Status: Current everyday Tobacco user Tobacco use type: Cigarette Current occupational status: employed Current occupation: [employer], Right hand dominant Physical Exam GI Other: Abdomen is soft. Incision clean dry and intact healing very well Assessment & Plan Assessment & Plan (1) Postop check: Code(s): Z09 - Encounter for follow-up examination after completed treatment for conditions other than malignant neoplasm Category: Surgical (2) Status post hernia repair: Code(s): Z98.890 - Other specified postprocedural states; Z87.19 - Personal history of other diseases of the digestive system Category: Surgical Plan Patient was been given local instructions including avoiding strenuous activities, light duty work note for 4 weeks and he will otherwise follow-up p.r.n.. All questions answered. Coding Level of Care Code Global (84955) Diagnoses Postop check Z09 Status post hernia repair Z98.890; Z87.19
== END 2024-05-25 11:07 | disposition home or self-care (01) ==
LOC: HO.HGS 10:53
PROVIDERS: PCP Internal Medicine; Visit Provider Surgery
DX: Z09 Encounter for follow-up examination after completed treatment for conditions other than malignant neoplasm (principal); Z98.890 Other specified postprocedural states; Z87.19 Personal history of other diseases of the digestive system
CPT/HCPCS: 99024

== ENCOUNTER → 2024-05-25 10:53 | Outpatient (BNVA) | payer MEDICAID, SELFPAY | PROVIDERS: PCP Internal Medicine; Visit Provider Surgery | DX: Z09 Encounter for follow-up examination after completed treatment for conditions other than malignant neoplasm (principal); Z87.19 Personal history of other diseases of the digestive system; Z98.890 Other specified postprocedural states | CPT/HCPCS: 99212 ==

== ENCOUNTER 2024-05-27 10:34 | Outpatient (AMB) | payer MEDICAID, SELFPAY ==
--- NOTE | 2024-05-27 10:38 | MHC.OFFVIS ---
Intake Visit Reasons: OV - LT RTC Repair 01/28/24 NE Intake Note: Raheem is a 58 year old right hand dominant male who presents today for a post op appointment s/p left RTC repair 01/28/24 NE. Allergies No Known Allergies [No Known Allergies*] Allergy (Verified 05/25/24 10:59) HPI HPI OV - LT RTC Repair 01/28/24 NE: Details: Raheem is a 58 year old right hand dominant male who presents today for a post op appointment s/p left RTC repair 01/28/24 NE. PFSH Medical History Left shoulder pain Rotator cuff tear, left Asthma Surgical History (Updated 05/25/24 @ 11:01 by Nitin Segovia MD) Left inguinal hernia (05/13/24) S/P left rotator cuff repair H/O colonoscopy History of facial surgery Hx of shoulder surgery Family History Father Colon cancer Paternal Uncle Stomach cancer Paternal Grandfather Stomach cancer Social History Alcohol intake: current Alcohol intake frequency: does not drink Patient Tobacco Use Status: Current everyday Tobacco user Tobacco use type: Cigarette Current occupational status: employed Current occupation: [employer], Right hand dominant Physical Exam Extrem Other: 45/90/130/L5 Assessment & Plan Assessment & Plan (1) S/P left rotator cuff repair: Comment: 01/28/2024 NE Code(s): Z98.890 - Other specified postprocedural states Category: Surgical Plan: Status post revision rotator cuff tear doing well. At 4 months his motion is excellent. I cautioned him about the timeline of recovery. He has some anterior shoulder pain that is nonspecific and I think this should continue to improve with time. He can follow up as needed. Coding Level of Care Code Est Pt Level 3 (05507) Diagnoses S/P left rotator cuff repair Z98.890
== END 2024-05-27 10:49 | disposition home or self-care (01) ==
LOC: HO.HOS 10:35
PROVIDERS: PCP Family Medicine; Visit Provider Orthopaedic Surgery
DX: M75.102 Unspecified rotator cuff tear or rupture of left shoulder, not specified as traumatic (principal); Z98.890 Other specified postprocedural states
CPT/HCPCS: 99213

== ENCOUNTER → 2024-05-27 10:34 | Outpatient (BNVA) | payer MEDICAID, SELFPAY | PROVIDERS: PCP Family Medicine; Visit Provider Orthopaedic Surgery | DX: Z98.890 Other specified postprocedural states (principal) | CPT/HCPCS: 99212 ==

== ENCOUNTER → 2024-08-06 07:46 | Outpatient (REF) | payer MEDICAID, SELFPAY ==
--- NOTE | 2024-08-06 07:54 | CA_ITS ---
Transthoracic Echocardiogram Patient (Last, First, Middle): Kip HaynesRaheem, Gender: Male Date of : 1965 Age: 58 Procedure Date: 08/06/2024 Procedure Type: Transthoracic Echocardiogram Location: OP Height: 167.64 cm Weight: 73.94 kg BSA: 1.83 m2 Heart Rate: bpm BP: 110 / 82 mmHg Dry Wall Sprayer: TO Referring MD: Jory Polk MD Symptoms: R07.89 ATYPICAL CHEST PAIN Study Quality: Adequate ECG Rhythm: Sinus Conclusions: - The left ventricular systolic function is normal. The calculated ejection fraction is 57% by biplane method. - No obvious valvular pathology seen on this study. Findings Left Ventricle Normal left ventricular cavity size. The left ventricular systolic function is normal. The calculated ejection fraction is 57% by biplane method. There is no evidence of regional wall motion abnormalities. Diastolic function is normal for age. There is mild septal asymmetric hypertrophy. Right Ventricle Normal right ventricular cavity size and systolic function. Atria Both atria are normal in size. Aortic Valve There is a normal trileaflet aortic valve. There is no aortic valve stenosis. There is no aortic valve regurgitation. Mitral Valve The mitral valve appears normal. There is trace mitral valve regurgitation. There is no mitral valve stenosis. Pulmonic Valve The pulmonic valve is likely normal. Tricuspid Valve There is no tricuspid valve regurgitation. Tricuspid regurgitation envelope is inadequate for calculation of right ventricular systolic pressure. Great Vessels The asc aorta and aortic arch are normal in size. Venous The inferior vena cava is normal in size and collapses greater than 50% with inspiration. Pericardium/Pleural There is no evidence of pericardial effusion. Prior Study Comparison No prior study available for comparison. Recommendations, Care & Conclusions No obvious valvular pathology seen on this study. Measurements 2D Linear Measurements IVSd: 1.06 0.6-0.9/0.6-1.0 cm LVIDd: 4.53 3.9-5.3/4.2-5.9 cm LVIDd Index: 2.48 2.4-3.2/2.2-3.1 cm/m2 LVIDs: 3.11 2.0-3.6 cm LVPWd: 0.98 0.7-1.1 cm LA Diam: 3.20 2.7-3.8/3.0-4.0 cm LAIDs Index: 1.75 1.5-2.3 cm/m2 LV Mass: 198.66 67-162/88-224 g LV Mass Index: 108.56 43-95/49-115 g/m2 LVOT Diam: 2.30 3.0+(-)1.3 cm 2D Systolic Function EF 4C: 57.70 >55% EF 2C: 56.30 >55% EF BiP: 57.40 >55% Mitral Valve MV Pk E: 0.70 MV PK A: 0.81 MV Decel Time: 229.00 E/A: 0.90 E'Lateral: 7.62 E'Medial: 4.46 E/E' Med: 15.70 E/E' Lat: 9.20 PHT: 67.00 MVA PHT: 3.28 Decel [place]: 3.05 Aortic Valve AoV Pk Amarjit: 1.31 AoV Mn Amarjit: 0.86 AoV VTI: 0.27 AoV Pk Grad: 7.00 Aov Mn Grad: 3.00 LANEY Cont.VTI: 3.15 LVOT LVOT Pk Amarjit: 0.97 LVOT Mn Amarjit: 0.72 LVOT VTI: 0.21 LVOT Pk Grad: 4.00 LVOT Mn Grad: 2.00 LVOT Diam: 2.30 LVOT Area: 4.15 Diastolic Function MV Pk E: 0.70 MV Pk A: 0.81 E/A: 0.90 E'Medial: 4.46 E/E' Med: 15.70 E' Laterial: 7.62 E/E' Lat: 9.20 Right Ventricle TAPSE (mm): 21.90 TVS' Amarjit: 12.20 Tricuspid Valve RA Press: 3.00 Great Vessels Aorta Sinus of Valsalva: 3.94 2.0-3.[address] [place]: 3.10 1.7-3.4 cm Ao Asc: 3.70 2.1-3.4 cm Ao Arch: 3.10 Updated in Other Vendor System with Status of Final Jarrell Bueno MD electronically signed on 08/07/2024 2:18:19 PM with status of Final
--- NOTE | 2024-08-06 10:00 | CA_ITS ---
Acquisition Time: 2024-08-06 09:25:51 Total Exercise Time: 00:08:25 Test Indications: atypical cp Medications: Protocol: MAGALIE Max HR: 109 BPM 67% of Pred: 161 BPM Max BP: 146/88 mmHG Max Work Load: 10.1 METS Exercise Stress Test with exercise 8 min 25 secs of Magalie Protocol, achieving 67% MPHR with 10.1 METS, with severe SOB requesting to stop, no chest discomfort, without any arrythmias, with normotensive response to exercise. Without EKG changes meeting criteria for ischemia. In recovery, breathing returned to baseline. However, 5 minutes into recovery, pt had t wave inversions in leads I, II, aVF, and from V2-V6. Recommend further testing with Pharmacologic Nuclear Stress Test. Test reviewed with Dr. Bueno. Referred By: Jory Polk Electronically Signed By: Carlo Alonso
== END ==
LOC: HO.CARD 07:46
PROVIDERS: PCP Family Medicine; Visit Provider Family Medicine
DX: R07.89 Other chest pain (principal)
CPT/HCPCS: 93017; 93306

== ENCOUNTER → 2024-08-06 10:00 | Outpatient (BNV) | payer MEDICAID, SELFPAY | PROVIDERS: PCP Family Medicine | DX: R06.02 Shortness of breath (principal) | CPT/HCPCS: 93016; 93018; 93320; 93350 ==

== ENCOUNTER 2024-08-13 08:03 | Outpatient (REF) | payer MEDICAID, SELFPAY ==
[2024-08-13 14:17] LABS: MANUAL DIFF FLAG NO
[2024-08-13 14:24] LABS: Basophils Percent Auto 0.5 % (0-2); Eosinophils Absolute Auto 0.1 X10*3/uL (0.0-0.4); Eosinophils Percent Auto 1.9 % (0-4); Hematocrit 39.3 % (42.0-52.0); Hemoglobin 12.2 g/dl (14.0-18.0); Imm Gran Abs Auto 0.01 X10*3/uL (0.00-0.03); Imm Gran Pct Auto 0.2 % (0.0-0.4); Lymphocytes Absolute Auto 1.8 X10*3/uL (1.2-4.9); Lymphocytes Percent Auto 28.5 % (20-40); Mean Corpuscular Hemoglobin 23.4 pg (27.0-33.0); Mean Corpuscular Volume 75.3 fL (80.0-98.0); Mean Platelet Volume 11.4 fL (9.4-12.4); Monocytes Absolute Auto 0.5 X10*3/uL (0.1-1.2); Monocytes Percent Auto 8.4 % (2-11); Neutrophils Absolute Auto 3.8 x10*3/uL (2.0-8.3); Neutrophils Percent Auto 60.5 % (45-73); Platelet Count 243 X10*3/uL (160-400); Red Blood Count 5.22 X10*6/uL (4.60-5.80); Red Cell Distribution Width 17.2 % (11.0-16.0); White Blood Count 6.2 X10*3/uL (4.8-10.8)
[2024-08-13 14:44] LABS: Alanine Aminotransferase 28 U/L (0-40); Albumin Level 4.4 g/dL (3.5-5.0); Alkaline Phosphatase 103 U/L (39-117); Anion Gap 9 (12-20); Aspartate Amino Transferase 27 U/L (5-37); Bilirubin Total 0.3 mg/dL (0.0-1.0); Blood Urea Nitrogen 11 mg/dL (9-16); Calcium 9.2 mg/dL (8.4-10.2); Carbon Dioxide 28 mmol/L (22-29); Chloride 107 mmol/L (96-108); Estimated Glomerular Filt Rate > 60; Glucose Random 92 mg/dL (60-115); Sodium 140 mmol/L (135-145); Total Protein 7.5 g/dL (6.5-8.0)
[2024-08-13 15:01] LABS: TSH reflex Free T4 1.42 uIU/mL (0.32-4.0)
== END 2024-08-13 08:04 | disposition home or self-care (01) ==
LOC: HO.CHCLDS 08:03
PROVIDERS: Visit Provider Family Medicine
DX: R07.89 Other chest pain (principal)
CPT/HCPCS: 36415; 80053; 84443; 85025

== ENCOUNTER 2024-08-20 07:48 | Day surgery (SDC) | payer MEDICAID, SELFPAY ==
--- NOTE | 2024-08-19 10:54 | P.CONAN_ITS ---
Documented by User: Indigo Keith NP 08/19/24 10:55 HPI - Anesthesia Eval Consult details Narrative: 58yo M for Colonoscopy PMFSH Active Problems Active Problems: All Active Problems Status post hernia repair (Acute) Postop check (Acute) Family history of colon cancer in father (Acute) Left inguinal hernia (Acute 05/13/24) S/P left rotator cuff repair (Acute) Tubular adenoma of colon (Acute) Bipolar disorder (Acute) Schizophrenia (Acute) Past Medical History Medical History Left shoulder pain Rotator cuff tear, left Asthma Family History Family History Father Colon cancer Paternal Uncle Stomach cancer Paternal Grandfather Stomach cancer Family history of problems with anesthesia: No Surgical History Surgical History Left inguinal hernia (05/13/24) S/P left rotator cuff repair H/O colonoscopy History of facial surgery Hx of shoulder surgery History of Problems with Anesthesia: No Social History Social History Housing Other:: private long-term Are you a primary direct support professional caregiver to a significant other at home: No Do you presently have visiting nurse or other home services: No Alcohol intake: current Alcohol intake frequency: does not drink Patient Tobacco Use Status: Current everyday Tobacco user Tobacco use type: Cigarette Smoked in Last 30 Days: Yes Patient Interested in Nicotine Replacement: No Have you been hit, kicked, punched, or otherwise hurt by someone within the past year? If so, by whom?: No Are you DNR?: No Advance Directives: No Advance Directives Information Provided: Yes Recently lost weight without trying: No Nutrition Risks: No Nutritional Risk Current occupational status: employed Current occupation: [employer], Right hand dominant Meds Allergies Allergy/AdvReac Type Severity Reaction Status Date / Time No Known Allergies Allergy Verified 08/20/24 08:40 [No Known Allergies*] Home Medications ?Medication ?Instructions ?Recorded ?Confirmed ?Last Taken ?Type bupropion HCl 150 mg 24 hr tablet, 150 mg PO QAM 11/05/23 08/20/24 05/12/24 History extended release quetiapine 100 mg tablet 100 mg PO DAILY 11/05/23 08/20/24 05/12/24 History albuterol sulfate 90 mcg/actuation 2 puff inhalation Q4H PRN wheezing 01/28/24 08/20/24 05/13/23 History aerosol inhaler (Ventolin HFA) gabapentin 300 mg capsule 300 mg PO TID 02/20/24 08/20/24 05/13/24 History Assessment and Plan Assessment Anesthesia Assessment: Chart Reviewed Final Anesthetic Review Family History of Problems with Anesthesia: No History of Problems with Anesthesia: No Documented by User: Elysia Sanchez MD 08/20/24 08:54 PMFSH Past Medical History Medical History Left shoulder pain Rotator cuff tear, left Asthma Family History Family History Father Colon cancer Paternal Uncle Stomach cancer Paternal Grandfather Stomach cancer Surgical History Surgical History Left inguinal hernia (05/13/24) S/P left rotator cuff repair H/O colonoscopy History of facial surgery Hx of shoulder surgery Social History Social History Housing Other:: private long-term Are you a primary direct support professional caregiver to a significant other at home: No Do you presently have visiting nurse or other home services: No Alcohol intake: current Alcohol intake frequency: does not drink Patient Tobacco Use Status: Current everyday Tobacco user Tobacco use type: Cigarette Smoked in Last 30 Days: Yes Patient Interested in Nicotine Replacement: No Have you been hit, kicked, punched, or otherwise hurt by someone within the past year? If so, by whom?: No Are you DNR?: No Advance Directives: No Advance Directives Information Provided: Yes Recently lost weight without trying: No Nutrition Risks: No Nutritional Risk Current occupational status: employed Current occupation: [employer], Right hand dominant Meds Allergies Allergy/AdvReac Type Severity Reaction Status Date / Time No Known Allergies Allergy Verified 08/20/24 08:40 [No Known Allergies*] Home Medications ?Medication ?Instructions ?Recorded ?Confirmed ?Last Taken ?Type bupropion HCl 150 mg 24 hr tablet, 150 mg PO QAM 11/05/23 08/20/24 05/12/24 History extended release quetiapine 100 mg tablet 100 mg PO DAILY 11/05/23 08/20/24 05/12/24 History albuterol sulfate 90 mcg/actuation 2 puff inhalation Q4H PRN wheezing 01/28/24 08/20/24 05/13/23 History aerosol inhaler (Ventolin HFA) gabapentin 300 mg capsule 300 mg PO TID 02/20/24 08/20/24 05/13/24 History Exam Airway Mallampati Class: II TM Dist: >3cm Neck ROM: Full Denture: Upper and Lower Heart: rrr Lungs: cta Assessment and Plan Assessment Anesthesia Assessment: Anesthesia Plan Discussed Final Anesthetic Review NPO: Yes ASA Class: II Final Preanesthetic Review: No Changes in Pt Med Stat, Meds/Allgs Chart Reviewed and Consent Obtained/Reviewed Patient Risk: Low Procedure Risk: Low Anesthetic Plan Anesthetic Plan: MAC: Disposition: Standard PACU
[2024-08-20 08:15] VITALS: BMI 26.0
[2024-08-20] MEDS: Lactated Ringers 1,000 ML 100 ML IVCONT (08:32)
[2024-08-20 08:39] VITALS: BP 144/89; PULSE 70; RESP 18; TEMP 36.6; O2SAT 98
--- NOTE | 2024-08-20 08:52 | P.HPSUR_ITS ---
Pre-Procedural Eval Section A - 24 Hr Update-Section A only Date of Service: 08/20/24 The patient is an INPATIENT: No The patient has been examined within 24 hours of the surgical procedure. The History & Physical has been completed within 30 days and I have reviewed it.: No Section B - Complete if H&P > 30 days Chief Complaint: Surveillance for colon polyps, FH of colon cancer Relevant Family History (Specify if Yes): Yes Relevant Social History: Tobacco Use Present Medications: see Short Stay Collaborative assessment Medical History: Significant History (Left shoulder pain Rotator cuff tear, left Asthma) History of Previous Operations: Relevant previous surgery/procedure and date(s) (Facial surgery Rotator cuff repair left shoulder Colonoscopy 5 years ago in [place] with polyps. ) Allergies: Allergies Allergy/AdvReac Type Severity Reaction Status Date / Time No Known Allergies Allergy Verified 08/20/24 08:40 [No Known Allergies*] Review of Systems Sugical H&P ROS: Negative: Constitution, Cardiovascular, Respiratory and Gastrointestinal Exam Surgical H&P Exam: Normal: Heart, Normal: Lungs, Normal: Extremities and Normal: Abdomen Plan Diagnosis/Plan: Unchanged I have reviewed the history and physical and performed a pertinent physical examination on my patient. No changes have occurred unless specified. Time Spent With Patient Time: Total time managing care of this patient today ____ minutes.
[2024-08-20 10:09] VITALS: BP 103/68; PULSE 65; RESP 16; TEMP 36.1; O2SAT 96
--- NOTE | 2024-08-20 10:09 | HO.OPN-COLON ---
Colonoscopy Operative Note Operative Note Date of Service: 08/20/24 Narrative: COLONOSCOPY TILL CECUM WITH SNARE POLYPECTOMY Pre-op diagnosis: Surveillance for colon polyps. Post-op diagnosis:? Colon polyps, Diverticulosis, hemorrhoids Endoscopist:? Inocencio Youngblood MD Anesthesia:?MAC Consent: Indications for the procedure and potential complications of bleeding, perforation, reaction to medications and missed diagnosis were discussed with the patient and informed consent was obtained. Instrument: Olympus CF H 190 L variable stiffness adult colonoscope Monitoring: Vital signs and clinical assessment, intermittent blood pressure monitoring, continuous EKG monitoring, Pulse oximetry and Carbon Dioxide monitoring were done throughout the procedure. Please see anesthesia flowsheet. Colon withdrawl time was 20 minutes. Procedure: The patient was placed in the left lateral decubitis position and pre-procedure medications were administered. After a digital rectal examination of the ano-rectum, the video colonoscope was inserted into the rectum and advanced through the colon to the cecum. The colonoscope was slowly withdrawn in a retrograde panoramic fashion and the colon mucosa was carefully examined including a retroflexed view of the rectum. Findings and interventions are described below. Procedure Difficulty: without difficulty Findings: Terminal Ileum: Not evaluated Cecum: Normal Ascending Colon: Normal Transverse Colon: Normal Descending Colon: Moderate diverticulosis Sigmoid Colon: A 7-8 mm sessile polyp - removed with a cold snare. Moderate diverticulosis Rectum: A few 5-7 mm diminutive appearing polyps - 1 was removed with a cold snare Ano-rectum: Moderate internal hemorrhoids Colon preparation: Good after copious irrigation (pt reported drinking half the prep). [place] Bowel Preparation Scale Right colon; 2 Transverse colon: 2 Left colon; 2 (0 = Unprepared colon segment with mucosa not seen due to solid stool that cannot be cleared. 1 = Portion of mucosa of the colon segment seen, but other areas of the colon segment not well seen due to staining, residual stool and/or opaque liquid. 2 = Minor amount of residual staining, small fragments of stool and/or opaque liquid, but mucosa of colon segment seen well. 3 = Entire mucosa of colon segment seen well with no residual staining, small fragments of stool or opaque liquid) Impression and Post Procedure Diagnosis: Colonoscopy Findings: Two small polyps were removed Moderate diverticulosis seen in the left colon Moderate hemorrhoids on retroflexed exam. Plan: I will send a letter with biopsy results. Repeat Colonoscopy in 5 years if polyps are adenomatous and due to history of adenomatous colon polyps (Pt advised to take the entire prep for next colonoscopy appt) Above findings were reviewed with the patient and relevant handouts were given and the discharge area.
[2024-08-20 10:23] VITALS: BP 117/72; PULSE 60; RESP 16; O2SAT 97
[2024-08-20 10:38] VITALS: BP 124/89; PULSE 61; RESP 16; TEMP 36.2; O2SAT 99
== END 2024-08-20 11:34 | disposition home or self-care (01) ==
PROVIDERS: PCP Family Medicine; Visit Provider Internal Medicine Gastroenterology
PROC: 0DJD8ZZ Inspection of Lower Intestinal Tract, Via Natural or Artificial Opening Endoscopic (ICD-10-PCS; CPT 45378; principal; 2024-08-20 09:20)
DX: Z12.11 Encounter for screening for malignant neoplasm of colon (principal); Z86.0101 Personal history of adenomatous and serrated colon polyps; Z80.0 Family history of malignant neoplasm of digestive organs; K63.5 Polyp of colon; K62.1 Rectal polyp; K57.30 Diverticulosis of large intestine without perforation or abscess without bleeding; K64.8 Other hemorrhoids; J45.909 Unspecified asthma, uncomplicated; F20.9 Schizophrenia, unspecified; Z79.899 Other long term (current) drug therapy; Z98.890 Other specified postprocedural states; F17.210 Nicotine dependence, cigarettes, uncomplicated
CPT/HCPCS: 45385; 88305; J2704

== ENCOUNTER → 2024-08-20 07:48 | Outpatient (BNV) | payer MEDICAID, SELFPAY | PROVIDERS: PCP Family Medicine; Visit Provider Internal Medicine Gastroenterology | DX: Z12.11 Encounter for screening for malignant neoplasm of colon (principal); Z86.0100 Personal history of colon polyps, unspecified; K63.5 Polyp of colon; K57.90 Diverticulosis of intestine, part unspecified, without perforation or abscess without bleeding | CPT/HCPCS: 45385 ==

== ENCOUNTER → 2024-09-02 08:37 | Outpatient (BNVA) | payer MEDICAID, SELFPAY | PROVIDERS: PCP Family Medicine; Visit Provider Orthopaedic Surgery | DX: M25.462 Effusion, left knee (principal) | CPT/HCPCS: 99212 ==

== ENCOUNTER → 2024-09-02 08:37 | Outpatient (AMB) | payer MEDICAID, SELFPAY ==
--- NOTE | 2024-09-02 08:39 | A.OFFVIS_ITS ---
Vital Signs 09/02/24 08:41 Height 5 ft 5 in Weight 160 lb BMI 26.6 Intake Visit Reasons: New prob- LT knee pain Intake Note: Raheem is a 58 year old male who presents today for a new problem visit with complaints of left knee pain. Patient reports that he has had ongoing pain for many years now. Reports an injury when he was 12 years old. Pain is felt throughout the knee and is worse with bending/squatting, and ambulation of stairs. He is on his feet for long hours at work, as he works at the [employer]. No previous treatment for symtptoms Allergies No Known Allergies [No Known Allergies*] Allergy (Verified 08/20/24 08:40) HPI HPI New prob- LT knee pain: Details: Raheem is a 58 year old male who presents today for a new problem visit with complaints of left knee pain. Patient reports that he has had ongoing pain for many years now. Reports an injury when he was 12 years old. Pain is felt throughout the knee and is worse with bending/squatting, and ambulation of stairs. He is on his feet for long hours at work, as he works at the [employer]. No previous treatment for symtptoms . He describes recurrent swelling when he engages in rigorous activity. He has difficulty going up and downstairs. [facility] Medical History (Updated 09/02/24 @ 09:34 by Anton Sauceda MD) Left shoulder pain Rotator cuff tear, left Asthma Surgical History Left inguinal hernia (05/13/24) S/P left rotator cuff repair H/O colonoscopy History of facial surgery Hx of shoulder surgery Family History Father Colon cancer Paternal Uncle Stomach cancer Paternal Grandfather Stomach cancer Social History Housing Other:: private penitentiary Are you a primary rn care transition to a significant other at home: No Do you presently have visiting nurse or other home services: No Alcohol intake: current Alcohol intake frequency: does not drink Patient Tobacco Use Status: Current everyday Tobacco user Tobacco use type: Cigarette Current occupational status: employed Current occupation: [employer], Right hand dominant Physical Exam Vital Signs: BMI result Body Mass Index 26.6 Extrem Other: Left knee with full range of motion. He does have a trace effusion with retropatellar tenderness to palpation that is mild. Stable ligamentous exam. Results Reviewed Results Reviewed: I personally reviewed relevant radiographs. 1. No acute bony abnormalities. 2. Evidence of old MCL injury. 3. Early osteoarthrosis. Assessment & Plan Assessment & Plan (1) Effusion, left knee: Code(s): M25.462 - Effusion, left knee Category: Medical Plan: Left knee effusion. This is recurrent and his radiographs are largely unremarkable. He feels like he has been dealing with this for years. Modifies his activity and occasionally takes nonsteroidal anti-inflammatories. I discussed treatment options with him. At this point I recommend an MRI to assess the etiology of his effusion. Coding Level of Care Code Est Pt Level 3 (74692) Diagnoses Effusion, left knee M25.462
--- OUTSIDE RECORDS SUMMARY | 2024-09-02 08:52 | XMS_ITS | Encounter Summary ---
Author Organization [employer] Address [address] [facility] 7t [place] [address] Care Team Providers Care Safety Scientist Name Role Phone Jory Polk MD Primary Care Provider [phone] Reason for Visit * Reason Onset Date Comments Referral 07/26/2024 Encounter Details Date Type Department Care Team ([facility] st Contact Info) Description 07/26/2024 Telephone C [facility] [address] [place], [place] [phone] Jory Polk MD [address] [place] [address] Referral Social History Tobacco Use Types Packs/Day Years Used Date Smoking Tobacco: Some Days Cigarettes Passive Smoke Exposure: Never Smokeless Tobacco: Never Alcohol Use Standard Drinks/Week Comments Never 0 (1 standard drink = 0.6 oz pur e alcohol) Depression Answer Date Recorded Patient Health Questionnaire-9 Score 23 05/24/2024 Patient Health Questionnaire-9 Score 23 05/24/2024 Last PHQ-9: Questionnaire Data Not on file 1 Housing Stability Answer Date Recorded What is your housing situation today? I do not have housing (Staying with others, in a hotel, in a senior living, living outside on the street, on a beach, in a car, or in a park 11/03/[address] you li ve. Do you have problems with any of the following? None of the above 11/03/2023 Food Insecurity Answer Date Recorded Within the past 12 months, y ou worried that your food would run out before you got money to buy more: Never True 11/03/2023 Within the past 12 months,th e food you bought just didn't last and you didn't have enough money to get more: Never True 02/2024 Transportation Answer Date Recorded In the past 12 months, has l ack of transportation kept you from medical appts, meetings, work or from getting things needed for daily living? No 11/03/2023 Utilities Answer Date Recorded In the past 12 months, has t he electric, gas, oil or water company threatened to shut off services in your home? No 11/03/2023 Depression Answer Date Recorded Patient Health Questionnaire-2 Score 6 05/24/2024 Sex and Gender Information Value Date Recorded Sex Assigned at Male 05/27/2022 10:35 AM EDT Legal Sex Male 10:35 AM EDT Gender Identity Male 05/28/2023 1:31 PM EDT Sexual Orientation Straight 08/22/2023 1: 31 PM EST documented as of this encounter Miscellaneous Notes * Telephone Encounter - Chantal Giron RN - 07/26/2024 2:24 PM EST Noted thank you * Telephone Encounter - Jory Polk MD - 07/26/2024 1:03 PM EST Not the referral but I can add it to the notes, that is fine * Telephone Encounter - Polina Luis - 07/26/2024 11:31 AM EST Tc from pt calling to inform called 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 , phone number ,DR Anton Sauceda MD. Please call pt to clarify. documented in this encounter Plan of Treatment Not on file documented as of this encounter Visit Diagnoses Not on filedocumented in this encounter Additional Health Concerns Assessment Noted Time PHQ-9 Depression Total Score: 23 024 12:05 PM EDT documented as of this encounter Care Teams Safety Scientist Relationship Specialty Start Date End Date Jory Polk MD [address] [place] [address] PCP - General Family Medicine 10/10/23 Katie Courtney [address] [place] [address] Community Health Worker 05/24/24 Yenny Shaw Technical System AnalystPillowcase Turner 07/16/24 documented as of this encounter
--- OUTSIDE RECORDS SUMMARY | 2024-09-02 08:52 | XMS_ITS | Encounter Summary ---
Author Organization [employer] Address [address] [facility] 7t [place] [address] Care Team Providers Care Hvac Sales Engineer Name Role Phone Jory Polk MD Primary Care Provider [phone] Reason for Visit * Reason Comments Care Coordination CHW outreach for SDO H PT-1 and food needs-referral completed Encounter Details Date Type Department Care Team (Latest Contact Info) Description 08/12/2024 Patient Outreach [facility] [address] [place] [address] Jory Polk MD [address] [place] [address] Care Coordination (CHW outreach for SDOH PT-1 and food needs-referral completed /) Social History Tobacco Use Types Packs/Day Years [...] with others, in a hotel, in a mcc, living outside on the street, on a [...] PM EST documented as of this encounter Progress Notes * Tom Linda - 08/12/2024 10:57 AM EST CHW Tom Linda, placed outbound call to patient for assistance with SDOH as a referral was received by the provider. Patient's name and were confirmed. Patient screened positive for the following SDOH food insecurities. CHW referral patient to the local list of pantries in the area for help. PT-1 requested was send out in behalf of patient for futures appt. Patient verbalizes understandin g, and able to agree with plan to follow up. Patient educated on extended clinic hours on Mondays through Wednesdays, and Walk-In Urgent Care Located in [facility]. Patient provided with after-hours line for [facility], , which offer night time triage service and option to transfer to enthone solder stripper provider if needed. documented in this encounter Plan of Treatment Not on file documented as of this encounter Visit Diagnoses Not on filedocumented in this encounter Additional Health Concerns Assessment Noted Time PHQ-9 Depression Total Score: 23 024 12:05 PM EDT documented as of this encounter Care Teams Hvac Sales Engineer Relationship Specialty Start Date End Date Jory Polk MD [address] [place] [address] PCP - General Family Medicine 10/10/23 Katie Courtney [address] [place] [phone] Community Health Worker 05/24/24 Yenny Shaw Tailor ApprenticeCanary Breeder 07/16/24 documented as of this encounter
--- OUTSIDE RECORDS SUMMARY | 2024-09-02 08:52 | XMS_ITS | Encounter Summary ---
Author Organization [employer] Address [address] [facility] 7t [place] [address] Care Team Providers Care Line Out Worker Name Role Phone Jory Polk MD Primary Care Provider [phone] Reason for Visit * Reason Onset Date Comments PT-1 08/12/2024 Encounter Details Date Type Department Care Team ([facility] st Contact Info) Description 08/12/2024 Telephone [facility] MEDICINE [address] [place] [address] Jory Polk MD [address] [place] [address] PT-1 Social History Tobacco Use Types Packs/Day Years [...] with others, in a hotel, in a usp, living outside on the street, on a [...] encounter Miscellaneous Notes * Telephone Encounter - Savanna Alanis - 08/12/2024 9:58 AM EST Patient calling requesting PT1 Home Address verified: Y/N: Yes Provider name or facility name: [address] [place] [address] [address] [facility] [address] Escort needed: Y/N: No Do you have a wheelchair: Y/N: No Visits: (3) ( x monthly) Pt stated appointment is for 08/20/2024 documented in this encounter Plan of Treatment Not on file documented as of this encounter Visit Diagnoses Not on filedocumented in this encounter Additional Health Concerns Assessment Noted Time PHQ-9 Depression Total Score: 23 024 12:05 PM EDT documented as of this encounter Care Teams Line Out Worker Relationship Specialty Start Date End Date Jory Polk MD [address] [place] [address] PCP - General Family Medicine 10/10/23 Katie Courtney [address] [place] [phone] Community Health Worker 05/24/24 Yenny Shaw Park AideSinger Songwriter 07/16/24 documented as of this encounter
--- OUTSIDE RECORDS SUMMARY | 2024-09-02 08:52 | XMS_ITS | Encounter Summary ---
Author Organization [employer] Address [address] [facility] 7t [place] [address] Care Team Providers Care Track Broom Operator Name Role Phone Jory Polk MD Primary Care Provider [phone] Reason for Visit * Reason Onset Date Comments PT1 08/12/2024 Encounter Details Date Type Department Care Team ([facility] st Contact Info) Description 08/12/2024 Telephone [facility] MEDICINE [address] [place] [address] Jory Polk MD [address] [place] [address] PT1 Social History Tobacco Use Types Packs/Day Years [...] with others, in a hotel, in a penitentiary, living outside on the street, on a [...] * Telephone Encounter - Savanna Alanis - 08/17/2024 2:20 PM EST Pt requesting status of PT-1 as he has upcoming appointment. * Telephone Encounter - Soraya Villa - 08/12/2024 10:12 AM EST Patient calling requesting PT1 Home Address verified: Y/N: Yes Provider name or facility name: [address] [place] [address] [place] [address] Escort needed: Y/N: Yes Do you have a wheelchair: Y/N: No If yes- Manual or electric: N/A Visits: (3) ( x monthly) documented in this encounter Plan of Treatment Not on file documented as of this encounter Visit Diagnoses Not on filedocumented in this encounter Additional Health Concerns Assessment Noted Time PHQ-9 Depression Total Score: 23 024 12:05 PM EDT documented as of this encounter Care Teams Track Broom Operator Relationship Specialty Start Date End Date Jory Polk MD [address] [place], [place] [address] [address] PCP - General Family Medicine 10/10/23 Katie Courtney [address] [place] [phone] Community Health Worker 05/24/24 Yenny Shaw Front Line LeaderTrials Manager 07/16/24 documented as of this encounter
--- OUTSIDE RECORDS SUMMARY | 2024-09-02 08:53 | XMS_ITS | Encounter Summary ---
Author Organization [employer] Address [address] [facility] 7t [place] [address] Care Team Providers Care Soil And Plant Scientist Name Role Phone Jory Polk MD Primary Care Provider [phone] Reason for Visit * Reason Comments Med Refill Encounter Details Date Type Department Care Team ([facility] st Contact Info) Description 08/13/2024 Refill [facility]S [address] [place], [place] [phone] Jory Polk MD [address] [place] [address] Social History Tobacco Use Types Packs/Day Years [...] with others, in a hotel, in a fci, living outside on the street, on a [...] PM EST documented as of this encounter Plan of Treatment Not on file documented as of this encounter Visit Diagnoses Not on filedocumented in this encounter Additional Health Concerns Assessment Noted Time PHQ-9 Depression Total Score: 23 024 12:05 PM EDT documented as of this encounter Care Teams Soil And Plant Scientist Relationship Specialty Start Date End Date Jory Polk MD [address] [place] [id number] PCP - General Family Medicine 10/10/23 Katie Courtney [address] [place] [phone] Community Health Worker 05/24/24 Yenny Shaw Redevelopment ManagerFruit Cutter 07/16/24 documented as of this encounter
--- OUTSIDE RECORDS SUMMARY | 2024-09-02 08:53 | XMS_ITS | Clinical Summary ---
Author Organization [employer] Address [address] [facility] [address] [place] [address] Care Team Providers Care Vehicle Safety Inspector Name Role Phone Jory Polk MD Primary Care Provider [phone] Allergies No known active allergies Medications * This document contains information received from the source organization and may not represent a complete record from that organization. albuterol 108 (90 Base) MCG/ACT inhaler Inhale 2 puffs every 4 (four) hours if needed for wheezing. 18 g 10/10/19 24 025 Active hydrOXYzine HCl (Atarax) 50 MG tabletIndicati ons:Anxiety Take 1 tablet (50 mg) by mouth every 8 (eight) hours if needed for anxiety. 270 tablet 1 12/19/19 24 Active gabapentin (Neurontin) 300 MG capsule Take 1 capsule (300 mg) by mouth 3 times daily. 90 capsule 1 12/19/19 24 Active Blood Pressure kitIndications :Elevated blood pressure reading 1 Units Once per day. 1 kit 03/10/20 24 Active cloNIDine (Catapres) 0.1 MG tablet TOME ALEKS TABLETA POR V A ORAL AL ACOSTARSE CUANDO SEA NECESARIO 03/29/20 24 Active QUEtiapine (SEROquel) 200 MG tablet TAKE 1 TABLET BY MOUTH EVERY NIGHT AT BEDTIME PARA DORMIR 05/12/20 24 Active buPROPion XL (Wellbutrin XL) 300 MG 24 hr tablet TOME 1 TABLETA POR V A ORAL TODOS LOS D 05/12/20 24 Active prazosin (Minipress) 1 MG capsule TOME 1 C PSULA POR V A ORAL TODOS LOS D AL ACOSTARSE 04/15/20 24 Active HYDROcodone-ac etaminophen (Calvin) 5-325 MG tablet TOME ALEKS TABLETA POR V A ORAL CADA CUATRO A SEIS HORAS CUANDO SEA NECESARIO PARA EL DOLOR 05/13/20 Active acetaminophen (Tylenol Extra Strength) 500 MG tablet Take 2 tablets (1,000 mg) by mouth every 8 (eight) hours if needed for mild pain. 60 tablet 05/24/20 24 Active PARoxetine (Paxil) 20 MG tablet TOME 1 TABLETA POR V A ORAL TODOS LOS D 06/10/20 24 Active diclofenac (Cataflam) 50 MG tablet TOME 1 TABLETA POR VIA ORAL JEANETH VECES AL VIGNESH 90 tablet 08/13/19 25 Active amLODIPine (Norvasc) 10 MG tablet TAKE 1 TABLET (10 MG) BY MOUTH ONCE PER DAY. 90 tablet 1 08/13/19 25 Active amLODIPine (Norvasc) 10 MG tablet Take 1 tablet (10 mg) by mouth Once per day. 90 tablet 1 04/08/20 24 025 Discontinued diclofenac (Cataflam) 50 MG tablet TAKE 1 TABLET BY MOUTH 3 TIMES DAILY 90 tablet 07/26/20 24 025 Discontinued Active Problems Problem Noted Date Diagnosed Date Atypical chest pain 07/26/2024 Assessment & Plan (07/26/2024 10:49 AM EST): Ordering lab work, XR, and ECG for further evaluation. Dysphagia 07/26/2024 Hypertension 04/08/2024 Assessment & Plan (05/24/2024 12:56 PM EDT): BP controlled, continue with current medications. Advised to continue post op recovery and will reassess back pain if continued. Follow up in 3 months. Discussed medication refills as necessary. Relevant Medications Acetaminophen (Tylenol Extra Strength) 500 mg tablet Diclofenac (Cataflam) 50 mg tablet Assessment & Plan (04/08/2024 3:12 PM EDT): BP is uncontrolled and not at goal at home. Continue to monitor BP at home. Begin increased dose of Amlodipine, follow up in 6 weeks for recheck. Relevant Medications Amlodipine (Norvasc) 10 mg tablet Chronic pain of left knee 04/08/2024 Assessment & Plan (07/27/2024 9:53 AM EST): Reports steroid injection helped for 1 month but pain is recurring, at this point will proceed with orthopedic referral. Assessment & Plan (06/18/2024 4:45 PM EST): Will request XR records for further evaluation. Discussed with patient treatment options for knee pain. He agreed to have steroid injection today. Advised Pt about potential side effects, expected efficacy of injection, and post administration instructions such as ice pack to affected area. Follow up in 3-4 months and to follow up if Sx should worsen. Chronic pain of right knee 04/08/2024 Left inguinal pain 03/10/2024 Assessment & Plan (04/08/2024 11:00 AM EDT): Seen by surgeon, has inguinal hernia, will proceed with inguinal surgery Assessment & Plan (03/10/2024 10:12 AM EDT): Ordering US of left groin and XR of left hip for further evaluation of Sx. Chronic left shoulder pain 12/19/2023 Other schizophrenia 12/19/2023 Colon cancer screening 12/19/2023 Mild intermittent asthma without complication Bipolar disorder, current episode depressed, sev ere 10/10/2023 Assessment & Plan (11/17/2023 3:58 PM EDT): New/Additional Services needed Off-site services for Behavioral Health Integration Plan Patient Self Plan Patient to utilize skills provided in intervention , Patient to reach out to [facility] team as needed, Patient to reach out to [facility] as needed, and Patient to call [facility] for OP and psych med management intake. We discussed that if by end of summer he has not been connected to psych medication management he will follow up with [facility] for alternative options Assessment & Plan (11/17/2023 3:53 PM EDT): New/Additional Services needed PCP management Off-site services for Behavioral Health Integration Plan Internal Follow up with [facility], Cold handoff to CHW/FP, Follow up with [facility] on 10/20/23 External Patient to reach out to [facility] for services around OP BH therapy and psych medication management Patient Self Plan Patient to utilize skills provided in intervention , Patient to reach out to [facility] team as needed, and Patient to reach out to [facility] as needed Assessment & Plan (10/11/2023 1:54 AM EDT): Hx of bipolar disorder with no current psychiatric or therapeutic care in place. Plan is to initiate the process of setting up the patient with the necessary psychiatric and medical services, with a request for services to be provided in [place]. Encounters Date Type Department Care Team Description 08/18/2024 Patient Outreach [facility] [address] [place] [address] Jory Polk MD Care Coordination (CH[facility] outreach for SDOH PT-1 and food needs-referral completed /) 08/13/2024 Refill [facility] [address] [place] [address] Jory Polk MD 08/13/2024 Telephone [facility] [address] [place] [address] Jory Polk MD Appointment 08/12/2024 Patient Outreach [facility] [address], [place] [phone] Jory Polk MD Care Coordination (CHW outreach for SDOH PT-1 and food needs-referral completed /) 08/12/2024 Telephone [facility] [address] [place] [phone] Jory Polk MD PT1 08/12/2024 Telephone [facility] [address] [place] [phone] Jory Polk MD PT-1 08/10/[address] [phone] Jory Polk MD Call Back Request 08/02/[address] [phone] Jory Polk MD Call Back Request 07/27/2024 Telephone [facility] [address] [place] [address] [phone] Jory Polk MD echo/stress test orders 07/26/2024 10:15 AM EST Office Visit [facility] [address] [place] [address] Jory Polk MD Atypical chest pain (Primary Dx); Dysphagia, unspecified type; Chronic pain of left knee 07/26/2024 Refill [facility] [address] [place] [address] Jory Polk MD 07/26/2024 Telephone [facility] [address] [place] [address] Jory Polk MD Referral 07/26/2024 Travel 07/16/2024 Telephone [facility] [address] [place] [address] Jory Polk MD Care Coordination ([facility] ) 07/07/[address] [address] Jory Polk MD Nurse Triage 06/21/[address] [address] Jory Polk MD Nurse Triage 06/18/2024 9:00 AM EST Office Visit [facility] [address] [place] [address] Jory Polk MD Chronic pain of left knee (Primary Dx) 06/18/2024 Patient Outreach [address] [phone] Antonio Colon 06/18/2024 Travel 06/17/2024 Patient Outreach [facility] [address] [place] [address] Jory Polk MD Care Coordination ([facility] outreach for SDOH PT-1 and food needs-referral completed /) 06/15/[address] [address] Jory Polk MD CHART PREP 06/10/2024 Telephone [facility] [address] [place] [address] Jory Polk MD PT1 06/10/2024 Telephone [facility] [address] [place] [address] Jory Polk MD Referral 06/09/2024 10:00 AM EST Office Visit [facility] OPTOMETRY [address] [place] [address] Anahi Mackenzie, OD Presbyopia (Primary Dx) 06/09/2024 Travel from Last 3 Months Immunizations Name Administration Dates Next Due Influenza, seasonal, injectable, preservative fr ee 03/24/2024 Pneumococcal Polysaccharide PPSV23 12/10/2018 Tdap 12/10/2018 Social History Tobacco Use Types Packs/Day Years Used Date Smoking Tobacco: Some Days Cigarettes Passive Smoke Exposure: Never Smokeless Tobacco: Never Tobacco Cessation:Ready to Q uit: Not Asked; Counseling Given: Not Answered Alcohol Use Standard Drinks/Week Comments Never 0 [...] with others, in a hotel, in a residential, living outside on the street, on a [...] Orientation Straight 08/22/2023 1: 31 PM EST Last Filed Vital Signs Vital Sign Reading Time Taken Comments Blood Pressure 130/86 07/26/2024 9:53 AM EST Pulse 78 07/26/2024 9:53 AM EST Temperature 36.6 ??C (97.8 ??F) 07/26/2024 9:53 AM ES T Respiratory Rate 20 07/26/2024 9:53 AM EST Oxygen Saturation 98% 07/26/2024 9:53 AM EST Inhaled Oxygen Concentration - - Weight 73.9 kg (163 lb) 07/26/2024 9:53 AM EST Height 172 cm (5' 7.72 ) 07/26/2024 9:53 AM EST Body Mass Index 24.99 07/26/2024 9:53 AM EST Plan of Treatment Health Maintenance Due Date Last Done Comments CT Colonography 1965 FIT DNA/Cologuard 1965 FIT 1965 FOBT 1965 Sigmoidoscopy 1965 Hepatitis B Vaccines (1 of 3 - 19+ 3-dose series) 12/08/1983 Zoster Vaccines (1 of 2) 2014 Pneumococcal Vaccine: 50+ Years (2 of 2 - PCV) 12/11/2019 12/10/2018 SDOH Screening 11/02/2024 11/03/2023 Depression Monitoring (PHQ-9) 11/22/2024, 05/24/2024 Alcohol/Substance Use Screening 05/24/2025 05/24/2024 Depression Screening 05/24/2025 05/24/2024, 05/24/2024 Tobacco Screening 07/26/2025 07/26/2024 DTaP/Tdap/Td Vaccines (2 - T d or Tdap) 12/10/2028 12/10/2018 Lipid Panel 12/14/2028 12/15/2023 Colonoscopy 08/20/2029 Colorectal Cancer Screening 08/20/2029 RSV Patients and Patients Aged 60 years or older (1 - 1-dose 75+ series) 12/08/2039 HIV Screening Completed 12/15/2023 Hepatitis C Screening Completed 12/15/2023 COVID-19 Vaccine Completed 03/24/2024 Influenza Vaccine Completed 03/24/2024 HIB Vaccines Aged Out No longer eligi ble based on patient's age to complete this topic HPV Vaccines Aged Out No longer eligi ble based on patient's age to complete this topic Hepatitis A Vaccines Aged Out No long er eligible based on patient's age to complete this topic IPV Vaccines Aged Out No longer eligi ble based on patient's age to complete this topic Meningococcal Vaccine Aged Out No ridge katarina eligible based on patient's age to complete this topic RSV under 20 months Aged Out No longe r eligible based on patient's age to complete this topic Rotavirus Vaccines Aged Out No longer eligible based on patient's age to complete this topic Procedures Procedure Name Priority Date/Time Associated Diagnosis Comments GROSS AND MICROSCOPIC LEVEL 4 Routine 08/20/2024 10:01 AM EST TSH W/REFLEX TO FT4 Routine 08/13/2024 8 :05 AM EST Atypical chest pain COMPREHENSIVE METABOLIC PANEL Routine 08/13/2024 8:05 AM EST Atypical chest pain CBC WITH AUTO DIFFERENTIAL Routine 08/13/2024 8:05 AM EST Atypical chest pain TRANSTHORACIC ECHO (TTE) COMPLETE Routine 08/06/2024 Atypical chest pain ECG 12-LEAD Routine 07/26/2024 10:34 AM EST Atypical chest pain IL ARTHROCENTESIS ASPIR&/INJ MAJOR JT/BURSA W/O US Routine 06/21/2024 9:15 AM EST Chronic pain of left knee LIPID PANEL, STANDARD Routine 12/15/2023 8:29 AM EDT Elevated blood pressure reading HEPATITIS C AB W/REFL TO HCV RNA, QN, PCR Routine 12/15/2023 8:24 AM EDT Encounter for health-related screening HIV 1/2 ANTIGEN/ANTIBODY, FOURTH GENERATION W/RFL Routine 12/15/2023 8:24 AM EDT Encounter for health-related screening from Last 3 Months or Most Recently Relevant to Health Maintenance Results * Gross and Microscopic Level 4 (08/20/2024 10:01 AM EST) 08/20/2024 10:0 1 AM EST 08/20/2024 10:35 AM EST Narrative [facility] - 08/23/2024 10:29 AM EST ----- ------- Name: Raheem Cuevas ?Age/Sex: 58/M ? : 1965 Unit#: [id number] ?? Attend Dr: Inocencio Youngblood MD ?Re08/20/24 ?Status: DEP SDC ? Location: HO.SSS ?Disch: ? ----- ------- SPEC : [id number] ?RECD: 08/20/24-1034 ? STATUS: ??SOUT ? REQ NUM: [id number] ? TEJ: 08/20/24-1001 ? SUBM DR: Inocencio Youngblood MD ? ENTERED: ??08/20/24-1048 ?SP TYPE: Surgical ? OTHR DR: Jory Polk MD ? ORDERED: ??Gross Micro L4/2 ? Diagnosis ?? A. ??Colon, sigmoid, polyp: ??Hyperplastic polyp. ? B. ??Colon, rectal polyp: ??Debris only; no tissue present for evaluation. ?Clinical History Pre-Op Dx: ??Benign neoplasm of colon, unspecified Post-Op Dx: Diverticulosis, hemorrhoids, colon polyps ?Microscopic Description Microscopic sections reviewed. ? Material Received ?? A. Sigmoid colon polyp ?? B. Rectal polyp ? Gross Description Received in 2 parts. A. Received in formalin labeled ?sigmoid colon polyp? is a fragment of pink white soft tissue measuring 0.5 x 0.4 x 0.2 cm which is wrapped in lens paper and entirely submitted for microscopic examination, 1 piece in cassette A. B. Received in formalin labeled ?rectal polyp? are minute fragments of translucent, white soft tissue forming in aggregate measuring less than 0.1 cm in greatest dimension which is entirely submitted for microscopic examination, multiple pieces in cassette B, however, may not be recoverable following processing. [facility] Copies To: ?? Inocencio Youngblood MD ?? [facility] ?? [address] ?? [place] Page [phone] ?? [phone] ? CONTINUED ON NEXT PAGE ----- ------- Name: Raheem Cuevas ?Age/Sex: 58/M ? : 1965 Unit#: [id number] ?? Attend Dr: Inocencio Youngblood MD ?Re08/20/24 ?Status: DEP SDC ? Location: HO.SSS ?Disch: ? ----- ------- SPEC : [id number] ?RECD: 08/20/24-5 ? STATUS: ??SOUT ? REQ NUM: [id number] ? TEJ: 08/20/24-1000 ? SUBM DR: Inocencio Youngblood MD ? ENTERED: ??01/24/25-1047 ?SP TYPE: Surgical ? OTHR DR: Jory Polk MD ? ORDERED: ??Gross Micro L4/2 ? Copies To: ??(Continued) ?? Jory Polk MD ?? [address] ?? [place] Page [phone] ?? [phone] ----- ------- Signed (signature on file) Litzy Kirkland 08/23/24 1029 ? ----- ------- ? END OF REPORT ? us Generic External Data Provider LAB CYTOLOGY ORDE RABLES Final Result [facility] [address] [facility] [place] [phone] * TSH W/Reflex to FT4 (08/13/2024 8:05 AM EST) TSH reflex Free T4 1.42 0.32 - 4.0 uIU/mL [facility] Blood Venous blood specimen / Unknown 08/13/2024 8:05 AM EST 08/13/2024 2:12 PM EST us Jory Polk MD LAB BLOOD ORDERABLES Final Re sult [facility] [address] [place] [address] [phone] * (ABNORMAL) CBC auto differential (08/13/2024 8:05 AM EST) White Blood Count 6.2 4.8 - 10.8 X10*3/uL [facility] Red Blood Count 5.22 4.60 - 5.80 X10*6/uL [facility] Hemoglobin 12.2(L) 14.0 - 18.0 g/dl [facility] Hematocrit 39.3(L) 42.0 - 52.0 % [facility] Mean Corpuscular Volume 75.3(L) 80.0 - 98.0 fL [facility] Mean Corpuscular Hemoglobin 23.4(L) 27.0 - 33.0 pg [facility] Mean Corpuscular HGB Conc 31.0 31.0 - 36.0 g/dl [facility] Red Cell Distribution Width 17.2(H) 11.0 - 16.0 % [facility] Platelet Count 243 160 - 400 X10*3/uL [facility] Mean Platelet Volume 11.4 9.4 - 12.4 fL [facility] Neutrophils Percent Auto 60.5 45 - 73 % [facility] Imm Gran Pct Auto 0.2 0.0 - 0.4 % [facility] Lymphocytes Percent Auto 28.5 20 - 40 % [facility] Monocytes Percent Auto 8.4 2 - 11 % [facility] Eosinophils Percent Auto 1.9 0 - 4 % [facility] Basophils Percent Auto 0.5 0 - 2 % [facility] NRBC Pct Auto 0.0 0.0 - 0.2 /100WBC [facility] Neutrophils Absolute Auto 3.8 2.0 - 8.3 x10*3/uL [facility] Imm Gran Abs Auto 0.01 0.00 - 0.03 X10*3/uL [facility] Lymphocytes Absolute Auto 1.8 1.2 - 4.9 X10*3/uL [facility] Monocytes Absolute Auto 0.5 0.1 - 1.2 X10*3/uL [facility] Eosinophils Absolute Auto 0.1 0.0 - 0.4 X10*3/uL [facility] Basophils Absolute Auto 0.0 0.0 - 0.2 X10*3/uL [facility] NRBC Abs Auto 0.000 0.0 - 0.012 X10*3/uL [facility] Blood Venous blood specimen / Unknown 08/13/2024 8:05 AM EST 08/13/2024 2:15 PM EST us Jory Polk MD LAB BLOOD ORDERABLES Final Re sult [facility] [address] [place] [address] [phone] * (ABNORMAL) Comprehensive Metabolic Panel (08/13/2024 8:05 AM EST) Sodium 140 135 - 145 mmol/L [facility] Potassium 4.0 3.3 - 5.1 mmol/L [facility] Chloride 107 96 - 108 mmol/L [facility] Carbon Dioxide 28 22 - 29 mmol/L [facility] Anion Gap 9(L) 12 - 20 [facility] Urea Nitrogen (BUN) 11 9 - 16 mg/dL [facility] Creatinine, Serum 0.80 0.5 - 1.4 mg/dL [facility] Estimated Glomerular Filt Rate >60 [facility] Comment:Chronic Kidney Disea se: Estimated GFR < 60 mL/min/[id number] Kidney Disease: Estimated GFR < 15 mL/min/1.73m2 Glucose 92 60 - 115 mg/dL [facility] Calcium 9.2 8.4 - 10.2 mg/dL [facility] Bilirubin, Total 0.3 0.0 - 1.0 mg/dL [facility] Aspartate Amino Transferase 27 5 - 37 U/L [facility] Alanine Aminotransferase 28 0 - 40 U/L [facility] Total Protein 7.5 6.5 - 8.0 g/dL [facility] Albumin Level 4.4 3.5 - 5.0 g/dL [facility] Alkaline Phosphatase 103 39 - 117 U/L [facility] Blood Venous blood specimen / Unknown 08/13/2024 8:05 AM EST 08/13/2024 2:12 PM EST Jory Polk MD LAB BLOOD ORDERABLES Final Re sult [facility] [address] [place] [phone] * Transthoracic Echo (TTE) Complete (08/06/2024) Jory Polk MD CV ECHO PROCEDURES Final Resu lt * ECG 12 lead (07/26/2024 10:34 AM EST) Narrative Jory Polk MD - 07/26/2024 10:34 AM EST HR 60 bpm Regular rhyhm Abnl R wave progression RR' III, aVL Jory Polk MD ECG ORDERABLES Final Result * IL ARTHROCENTESIS ASPIR&/INJ MAJOR JT/BURSA W/O US (06/21/2024 9:15 AM EST) Narrative Jory Polk MD - 06/21/2024 9:15 AM EST Jory Polk MD ? 06/22/2024 ??9:49 PM Arthrocentesis Date/Time: 06/21/2024 9:15 AM Performed by: Jory Polk MD Authorized by: Jory Polk MD ?? Consent: ??Consent obtained: ??Written ??Consent given by: ??Patient ??Risks, benefits, and alternatives were discussed: yes ?Risks discussed: ??Pain, infection and bleeding ??Alternatives discussed: ??Alternative treatment [place] protocol: ??Imaging studies available: no ?Site/side marked: yes ?Immediately prior to procedure, a time out was called: yes ?Patient identity confirmed: ??Verbally with patient Location: ??Location: ??Knee ??Knee: ??L knee Anesthesia: ??Anesthesia method: ??Topical application and local infiltration ??Local anesthetic: ??Lidocaine 1% w/o epi Procedure details: ??Preparation: Patient was prepped and draped in usual sterile fashion ?Needle gauge: ??22 G ??Ultrasound guidance: no ?Approach: ??Lateral ??Steroid injected: yes ?Specimen collected: no ?? Post-procedure details: ??Dressing: ??Adhesive bandage ??Procedure completion: ??Tolerated well, no immediate complications us Jory Polk MD IN CLINIC/BEDSIDE ORDERABLES Final Result * (ABNORMAL) Lipid Panel, Standard (12/15/2023 8:29 AM EDT) Triglycerides 66 <150 mg/dL [facility] Comment:Desirable Triglyceri de: less than 150 mg/dLBorderline High Triglyceride 150-199 mg/dLHigh Triglyceride: 200-499 mg/dLVery High Triglyceride: greater than or equal to 5OO mg/dL Cholesterol 188 <200 mg/dL [facility] Comment:Desirable Cholestero l: less than 200 mg/dLBorderline High Cholesterol: 200-239 mg/dLHigh Cholesterol: greater than 239 mg/dL LDL Cholesterol Calculated 105(H) <100 mg/dL [facility] Comment:Desirable LDL: less than 100 mg/dLNear Optimal/Above Optimal LDL: 110- 129 mg/dLBorderline High LDL: 130-159 mg/dLHigh LDL: 160-189 mg/dLVery High LDL: greater than or equal to 190 mg/dL HDL Cholesterol 70 >40 mg/dL [facility] Comment:Desirable HDL: great er than 40 mg/dL Note: This HDL assay may give artificially low results in patients with liver disease. Blood Venous blood specimen / Unknown 12/15/2023 8:29 AM EDT 12/15/2023 2:27 PM EDT Jory Polk MD LAB BLOOD ORDERABLES Final Re sult Performing Organization Address [facility] Co de Phone Number [facility] [address] [place] [phone] * Hepatitis C Antibody with Reflex to HCV, RNA, Quantitative, Real-Time PCR (12/15/2023 8:24 AM EDT) Hepatitis C Antibody Nonreactive Nonreactive [facility] Comment:Antibodies to HCV no t detected; does not exclude early acuteHCV infection. Blood Venous blood specimen / Unknown 12/15/2023 8:24 AM EDT 12/15/2023 2:27 PM EDT us Jory Polk MD LAB BLOOD ORDERABLES Final Re sult Performing Organization Address [facility] Co de Phone Number [facility] [address] [place] [phone] * HIV-1/2 Antigen and Antibodies, Fourth Generation, with Reflexes (12/15/2023 8:24 AM EDT) HIV AB/AG Nonreactive Nonreactive [facility] Comment:HIV-1 p24 Ag and/or HIV-1/HIV-2 Ab not detected.A test result that is nonreactive does not exclude thepossibility of exposure to or infection with HIV-1 and/orHIV-2. Nonreactive results in this assay for individualswith prior exposure to HIV-1 and/or HIV-2 may be due toantigen and antibody levels that are below the limit ofdetection of this assay.[employer] HIV Ag/Ab Combo assay result andsupplemental assay results should be interpreted inconjunction with the patient's clinical presentation,history and other laboratory results. If the results areinconsistent with clinical evidence, additional testing issuggested to confirm the result. Blood Venous blood specimen / Unknown 12/15/2023 8:24 AM EDT 12/15/2023 2:27 PM EDT us Jory Polk MD LAB BLOOD ORDERABLES Final Re sult [facility] [address] [place] [address] [phone] from Last 3 Months or Most Recently Relevant to Health Maintenance Insurance [address] [place], [place] [address] C3 Care Teams Vehicle Safety Inspector Relationship Specialty Start Date End Date Joyr Polk MD [address] [place] [address] PCP - General Family Medicine 10/10/23 Katie Courtney [address] [place] [address] Community Health Worker 05/24/24 Yenny Shaw Professional ShopperToy Assembler 07/16/24
--- OUTSIDE RECORDS SUMMARY | 2024-09-02 08:53 | XMS_ITS | Encounter Summary ---
Author Organization [employer] Address 75 [facility] 7t [place] [address] Care Team Providers Care Food Service Clerk Name Role Phone Jory Polk MD Primary Care Provider [phone] Reason for Visit * Reason Onset Date Comments PT1 12/23/2023 Encounter Details Date Type Department Care Team ([facility] st Contact Info) Description 12/23/2023 Telephone [facility] MEDICINE [address] [place] [address] Jory Polk MD 505 [place] [address] PT1 Social History Tobacco Use Types Packs/Day Years Used Date Smoking Tobacco: Some Days Cigarettes Passive Smoke Exposure: Never Smokeless Tobacco: Never Alcohol Use Standard Drinks/Week Comments Never 0 (1 standard drink = 0.6 oz pur e alcohol) Depression Answer Date Recorded Patient Health Questionnaire-9 Score 15 10/21/2023 Patient Health Questionnaire-9 Score 15 10/21/2023 Last PHQ-9: Questionnaire Data Not on file 0 10/21/2023 Housing Stability Answer Date Recorded What is your housing situation today? I do not have housing (Staying with others, in a hotel, in a retirement, living outside on the street, on a [...] Answer Date Recorded Patient Health Questionnaire-2 Score 4 10/21/2023 Sex and Gender Information Value Date Recorded Sex Assigned at Male 05/27/2022 10:35 AM EDT Legal Sex Male 10:35 AM EDT Gender Identity Male 05/28/2023 1:31 PM EDT Sexual Orientation Straight 08/22/2023 1: 31 PM EST documented as of this encounter Miscellaneous Notes * Telephone Encounter - Sammi Alanis - 12/25/2023 9:15 AM EDT PT-1 submitted for patient. They will receive a letter of approval or denial in the mail. * Telephone Encounter - Liv Estrada - 12/23/2023 11:44 AM EDT Patient calling requesting PT1 Home Address verified: Y/N: Yes Provider name or facility name: [facility] Facility Address: [address] [place] [address] Escort needed: Y/N: No Do you have a wheelchair: Y/N: No If yes- Manual or electric: none Visits: n/a documented in this encounter Plan of Treatment Not on file documented as of this encounter Visit Diagnoses Not on filedocumented in this encounter Additional Health Concerns Assessment Noted Time PHQ-9 Depression Total Score: 15 024 9:20 AM EDT documented as of this encounter Care Teams Food Service Clerk Relationship Specialty Start Date End Date Jory Polk MD 230 [place] [address] PCP - General Family Medicine 10/10/23 Katie Courtney [address] [place] [address] Community Health Worker 05/24/24 Yenny Shaw Wrapping ClerkSock Ironer 07/16/24 documented as of this encounter
--- OUTSIDE RECORDS SUMMARY | 2024-09-02 08:53 | XMS_ITS | Encounter Summary ---
Author Organization [employer] Address 75 [facility] 7t [place] [address] Care Team Providers Care Laundry Laborer Name Role Phone Jory Polk MD Primary Care Provider [phone] Reason for Visit * Reason Onset Date Comments PT1 12/02/2023 Encounter Details Date Type Department Care Team ([facility] st Contact Info) Description 12/02/2023 Telephone [facility] [address] [place], [place] [phone] Jory Polk MD 505 [place] [address] PT1 Social History Tobacco Use Types Packs/Day [...] * Telephone Encounter - Sammi Alanis - 12/08/2023 3:09 PM EDT PT-1 submitted again * Telephone Encounter - Rome Shahid - 12/08/2023 8:23 AM EDT Tc from patient calling in regards to the message below stated had to to cancel appt and changed itto 12/15 at 9 am due to being denied * Telephone Encounter - Chantal Giron RN - 12/05/2023 11:14 AM EDT PT 1 was submitted one hour ago and request was made 1 day ago. Insurance will notify pt with decision. * Telephone Encounter - Liv Estrada - 12/05/2023 10:40 AM EDT Tc from pt calling in regards to PT1. States called [facility] You [facility] and was advised did not receive request and provider will need to call to expedite PT1 for 12/07. * Telephone Encounter - Sammi Alanis - 12/05/2023 9:49 AM EDT PT-1 submitted for patient. They will receive a letter of approval or denial in the mail. * Telephone Encounter - Mk Taylor - 12/04/2023 11:51 AM EDT Tc from pt requesting status on PT-1, rewriter did advise can take 24 hrs up to a week, pt stated they have a MRI scheduled for 12/08/23. Also advised can take another week for insurance approval. Pt verbalizes understanding. * Telephone Encounter - Polina Luis - 12/02/2023 12:33 PM EDT Patient calling requesting PT1 Home Address verified: Y/N: Yes Provider name or facility name: [facility] Facility Address: [address] [place] [address] Escort needed: Y/N: No Do you have a wheelchair: Y/N: No If yes- Manual or electric: no Visits: 2-3 visit Appt: 12/08/23 at 8 am documented in this encounter Plan of Treatment Not on file documented as of this encounter Visit Diagnoses Not on filedocumented in this encounter Additional Health Concerns Assessment Noted Time PHQ-9 Depression Total Score: 15 024 9:20 AM EDT documented as of this encounter Care Teams Laundry Laborer Relationship Specialty Start Date End Date Jory Polk MD [address] [place] [address] PCP - General Family Medicine 10/10/23 Katie Courtney [address] [place] [address] Community Health Worker 05/24/24 Yenny Shaw Terminal Make Up OperatorSourcing Specialist 07/16/24 documented as of this encounter
--- OUTSIDE RECORDS SUMMARY | 2024-09-02 08:53 | XMS_ITS | Encounter Summary ---
Author Organization [employer] Address 75 [facility] 7t [place] [address] Care Team Providers Care Zyglo Inspector Name Role Phone Jory Polk MD Primary Care Provider [phone] Reason for Visit * Reason Onset Date Comments PT-1 03/11/2024 Encounter Details Date Type Department Care Team ([facility] st Contact Info) Description 03/11/2024 Telephone [facility] MEDICINE 230 [place] [address] Jory Polk MD 505 [place] [address] PT-1 Social History Tobacco Use Types Packs/Day [...] with others, in a hotel, in a alf, living outside on the street, on a [...] encounter Miscellaneous Notes * Telephone Encounter - Rome Shahid - 03/11/2024 8:11 AM EDT Patient calling requesting PT1 Home Address verified: Y/N: Yes Provider name or facility name: [facility] Facility Address: [address] [place] [address] Escort needed: Y/N: No Do you have a wheelchair: Y/N: No Visits: All future appt's Pt has a future appt on 04/01 @ 8 Patient calling requesting PT1 Home Address verified: Y/N: Yes Provider name [facility] facility name: [facility] Facility Address: [address] [place] [address] Escort needed: Y/N: No Do you have a wheelchair: Y/N: No If yes- Manual or electric: no Visits: 3 appt on 04/16 @ 10:15 documented in this encounter Plan of Treatment Not on file documented as of this encounter Visit Diagnoses Not on filedocumented in this encounter Additional Health Concerns Assessment Noted Time PHQ-9 Depression Total Score: 15 024 9:20 AM EDT documented as of this encounter Care Teams Zyglo Inspector Relationship Specialty Start Date End Date Jory Polk MD [address] [place] [address] PCP - General Family Medicine 10/10/23 Katie Courtney [address] [place] [address] Community Health Worker 05/24/24 Yenny Shaw Technician Automated EquipmentKarate Instructor 07/16/24 documented as of this encounter
--- OUTSIDE RECORDS SUMMARY | 2024-09-02 08:53 | XMS_ITS | Encounter Summary ---
Author Organization [employer] Address 75 [facility] 7t [place] [address] Care Team Providers Care Color Printer Operator Name Role Phone Jory Polk MD Primary Care Provider [phone] Reason for Visit * Reason Onset Date Comments Call Back Request 08/10/2024 Encounter Details Date Type Department Care Team ([facility] st Contact Info) Description 08/10/2024 Telephone [facility] MEDICINE 230 [place] [address] Jory Polk MD 505 [place], [place] [phone] Call Back Request Social History Tobacco Use Types Packs/Day Years [...] with others, in a hotel, in a fpc, living outside on the street, on a [...] encounter Miscellaneous Notes * Telephone Encounter - Jose Crane - 08/23/2024 9:14 AM EST TC from pt requesting a call back regarding status of Results. Ptr is worried about findings and would like to Make a Appt to speak to somebodey about what was found. Contact pt at [phone] * Telephone Encounter - Stefanie James RN - 08/18/2024 10:06 AM EST TC placed to [facility] who will fax over pt most recent cardiac testing to [facility] for PCP Dr. Polk to review. Results received and sent to HIM to can into pt chart for review. * Telephone Encounter - Stefanie James RN - 08/17/2024 2:32 PM EST TC placed to pt with phone number on file [phone] by [facility] cat driver Oh #[id number] but call failed and was unable to connect. TC placed X4. Will postpone until 08/18 for another attempt * Telephone Encounter - Savanna Alanis - 08/17/2024 2:22 PM EST Tc from pt requesting a call back in regards results. As pt states client services coordinator seen something and has concerns. Callback number [phone] * Telephone Encounter - Soraya Kraftlissa Villa - 08/10/2024 1:00 PM EST Tc from pt requesting a call back in regards results. States client services coordinator report to him saw something in results and was going to talk with pcp but they don't explain nothing to him. He's has concerns. Pt report chest pain yesterday 08/09, today don't have. documented in this encounter Plan of Treatment Not on file documented as of this encounter Visit Diagnoses Not on filedocumented in this encounter Additional Health Concerns Assessment Noted Time PHQ-9 Depression Total Score: 23 024 12:05 PM EDT documented as of this encounter Care Teams Color Printer Operator Relationship Specialty Start Date End Date Jory Polk MD [address] [place] [address] PCP - General Family Medicine 10/10/23 Katie Courtney [address] [place] [address] Community Health Worker 05/24/24 Yenny Shaw Agricultural Equipment Sales ManagerData Security Analyst 07/16/24 documented as of this encounter
--- OUTSIDE RECORDS SUMMARY | 2024-09-02 08:53 | XMS_ITS | Encounter Summary ---
Author Organization [employer] Address 75 [facility] 7t [place] [address] Care Team Providers Care Solid Fiber Paster Operator Name Role Phone Jory Polk MD Primary Care Provider [phone] Reason for Visit * Reason Onset Date Comments PT-1 02/10/2024 Encounter Details Date Type Department Care Team ([facility] st Contact Info) Description 02/10/2024 Telephone [facility] MEDICINE 230 [place] [address] Jory Polk MD 505 [place] [address] PT-1 Social History Tobacco Use Types Packs/Day [...] encounter Miscellaneous Notes * Telephone Encounter - Sylvester Hsu - 02/10/2024 3:41 PM EDT Patient calling requesting PT1 Home Address verified: Y/N: Yes Provider name or facility name: [facility] Facility Address: [address] [place] [address] Escort needed: Y/N: No Do you have a wheelchair: Y/N: No If yes- Manual or electric: N/A Visits: 2 times monthly documented in this encounter Plan of Treatment Not on file documented as of this encounter Visit Diagnoses Not on filedocumented in this encounter Additional Health Concerns Assessment Noted Time PHQ-9 Depression Total Score: 15 024 9:20 AM EDT documented as of this encounter Care Teams Solid Fiber Paster Operator Relationship Specialty Start Date End Date Jory Polk MD 230 [place] [address] PCP - General Family Medicine 10/10/23 Katie Courtney [address] [place] [address] Community Health Worker 05/24/24 Yenny Shaw Commercial Loan ReviewerVp Care Management 07/16/24 documented as of this encounter
--- OUTSIDE RECORDS SUMMARY | 2024-09-02 08:53 | XMS_ITS | Encounter Summary ---
Author Organization [employer] Address 75 [facility] 7t [place] [address] Care Team Providers Care Food Science Technician Name Role Phone Jory Polk MD Primary Care Provider [phone] Reason for Visit * Reason Onset Date Comments PT-1 04/13/2024 Encounter Details Date Type Department Care Team ([facility] st Contact Info) Description 04/13/[address] [facility] MEDICINE 230 [place] [address] Jory Polk MD 505 [place] [address] PT-1 Social History Tobacco Use Types Packs/Day [...] with others, in a hotel, in a fdc, living outside on the street, on a [...] * Telephone Encounter - Sylvester Hsu - 04/13/2024 10:19 AM EDT Patient calling requesting PT1 Home Address verified: Y/N: Yes Provider name or facility name: [facility] Facility Address: [address] [place] [phone] Escort needed: Y/N: No Do you have a wheelchair: Y/N: No If yes- Manual or electric: N/A Visits: 1 time monthly documented in this encounter Plan of Treatment Not on file documented as of this encounter Visit Diagnoses Not on filedocumented in this encounter Additional Health Concerns Assessment Noted Time PHQ-9 Depression Total Score: 15 024 9:20 AM EDT documented as of this encounter Care Teams Food Science Technician Relationship Specialty Start Date End Date Jory Polk MD 230 [place] [address] PCP - General Family Medicine 10/10/23 Katie Courtney [address] [place] [address] Community Health Worker 05/24/24 Yenny Shaw Irrigation ManagerAlterations Expert 07/16/24 documented as of this encounter
--- OUTSIDE RECORDS SUMMARY | 2024-09-02 08:53 | XMS_ITS | Encounter Summary ---
Author Organization [employer] Address 75 [facility] 7t [place] [address] Care Team Providers Care Tobacco Stripping Machine Operator Name Role Phone Jory Polk MD Primary Care Provider [phone] Reason for Visit * Reason Onset Date Comments PT-1 02/05/2024 Encounter Details Date Type Department Care Team ([facility] st Contact Info) Description 02/05/2024 Telephone [facility] MEDICINE 230 [place] [address] Jory Polk MD 505 [place] [address] PT-1 Social History Tobacco Use Types Packs/Day [...] encounter Miscellaneous Notes * Telephone Encounter - Mk Taylor - 02/05/2024 8:22 AM EDT Patient calling requesting PT1 Home Address verified: Y/N: Yes Provider name or facility name: [facility] Facility Address: [address] [place] [address] Escort needed: Y/N: No Do you have a wheelchair: Y/N: No If yes- Manual or electric: no Visits: twice a month Date 02/26/24 Time: 8am documented in this encounter Plan of Treatment Not on file documented as of this encounter Visit Diagnoses Not on filedocumented in this encounter Additional Health Concerns Assessment Noted Time PHQ-9 Depression Total Score: 15 024 9:20 AM EDT documented as of this encounter Care Teams Tobacco Stripping Machine Operator Relationship Specialty Start Date End Date Jory Polk MD [address] [place] [address] PCP - General Family Medicine 10/10/23 Katie Courtney [address] [place] [address] Community Health Worker 05/24/24 Yenny Shaw Human Resource StatisticianPathology Manager 07/16/24 documented as of this encounter
--- OUTSIDE RECORDS SUMMARY | 2024-09-02 08:53 | XMS_ITS | Encounter Summary ---
Author Organization [employer] Address 75 [facility] 7t [place] [address] Care Team Providers Care Life Coach Name Role Phone Jory Polk MD Primary Care Provider [phone] Reason for Visit * Reason Onset Date Comments Referral 06/10/2024 Encounter Details Date Type Department Care Team ([facility] st Contact Info) Description 06/10/2024 Telephone [facility] MEDICINE 230 [place] [address] Jory Polk MD 505 [place] [address] Referral Social History Tobacco Use Types Packs/Day [...] with others, in a hotel, in a assisted, living outside on the street, on a [...] * Telephone Encounter - Sammi Alanis - 06/14/2024 2:55 PM EST Patient has an active PT-1 for address until 03/11/2025. * Telephone Encounter - Savanna Alanis - 06/10/2024 8:49 AM EST Patient calling requesting PT1 Home Address verified: Y/N: Yes Provider name or facility name: [facility] Facility Address: [address] [place] [address] Escort needed: Y/N: No Do you have a wheelchair: Y/N: No ?? If yes- Manual or electric: Visits: (2) ( x monthly) documented in this encounter Plan of Treatment Not on file documented as of this encounter Visit Diagnoses Not on filedocumented in this encounter Additional Health Concerns Assessment Noted Time PHQ-9 Depression Total Score: 23 024 12:05 PM EDT documented as of this encounter Care Teams Life Coach Relationship Specialty Start Date End Date Jory Polk MD [address] [place] [address] PCP - General Family Medicine 10/10/23 Katie Courtney [address] [place] [address] Community Health Worker 05/24/24 Yenny Shaw Lab EngineerForklift Technician 07/16/24 documented as of this encounter
--- OUTSIDE RECORDS SUMMARY | 2024-09-02 08:53 | XMS_ITS | Encounter Summary ---
Author Organization [employer] Address 75 [facility] 7t [place] [address] Care Team Providers Care Ad Compositor Name Role Phone Jory Polk MD Primary Care Provider [phone] Reason for Visit * Reason Onset Date Comments FYI 03/22/2024 Encounter Details Date Type Department Care Team ([facility] st Contact Info) Description 03/22/2024 Telephone [facility] MEDICINE 230 [place] [address] Jory Polk MD 505 [place] [address] FYI Social History Tobacco Use Types Packs/Day Years [...] with others, in a hotel, in a mcfp, living outside on the street, on a [...] Miscellaneous Notes * Telephone Encounter - Sylvester Shadi - 03/22/2024 3:10 PM EDT Tc from pt calling in regards to a US that was completed and wanted to inform pcp and it was resulted with him having a hernia. If any questions you can contact pt at [phone]. (Nepali Speaker) documented in this encounter Plan of Treatment Not on file documented as of this encounter Visit Diagnoses Not on filedocumented in this encounter Additional Health Concerns Assessment Noted Time PHQ-9 Depression Total Score: 15 024 9:20 AM EDT documented as of this encounter Care Teams Ad Compositor Relationship Specialty Start Date End Date Jory Polk MD [address] [place] [address] PCP - General Family Medicine 10/10/23 Katie Courtney [address] [place] [address] Community Health Worker 05/24/24 Yenny Shaw Supervisor Liquid YeastLeg Breaker 07/16/24 documented as of this encounter
--- OUTSIDE RECORDS SUMMARY | 2024-09-02 08:53 | XMS_ITS | Encounter Summary ---
Author Organization [employer] Address 75 [facility] 7t [place] [address] Care Team Providers Care Biophysics Teacher Name Role Phone Jory Polk MD Primary Care Provider Reason for Visit * Reason Onset Date Comments Appointment 08/13/2024 Encounter Details Date Type Department Care Team ([facility] st Contact Info) Description 08/13/2024 Telephone [facility] 505 [place], [place] [phone] Jory Polk MD 505 [place] [address] Appointment Social History Tobacco Use Types Packs/Day Years [...] with others, in a hotel, in a snf, living outside on the street, on a [...] encounter Miscellaneous Notes * Telephone Encounter - Tomer Giron - 08/13/2024 8:34 AM EST Patient walked in requesting for nurse call he previously called on 08/10/24 he is very concerned about cardiology appt about some findings. Still awaits for call and is asking for nurse to call back with appt and questions. documented in this encounter Plan of Treatment Not on file documented as of this encounter Visit Diagnoses Not on filedocumented in this encounter Additional Health Concerns Assessment Noted Time PHQ-9 Depression Total Score: 23 024 12:05 PM EDT documented as of this encounter Care Teams Biophysics Teacher Relationship Specialty Start Date End Date Jory Polk MD [address] [place] [address] PCP - General Family Medicine 10/10/23 Katie Courtney [address] [place] [address] Community Health Worker 05/24/24 Yenny Shaw ScalderIndustry Operations Investigator 07/16/24 documented as of this encounter
--- OUTSIDE RECORDS SUMMARY | 2024-09-02 08:53 | XMS_ITS | Encounter Summary ---
Author Organization [employer] Address 75 [facility] 7t [place] [address] Care Team Providers Care Grinder Operator Name Role Phone Jory Polk MD Primary Care Provider [phone] Reason for Visit * Reason Onset Date Comments Pt1 10/15/2023 Encounter Details Date Type Department Care Team ([facility] st Contact Info) Description 10/15/2023 Telephone [facility] MEDICINE 230 [place] [address] Jory Polk MD 505 [place] [address] Pt1 Social History Tobacco Use Types Packs/Day Years Used Date Smoking Tobacco: Some Days Cigarettes Passive Smoke Exposure: Never Smokeless Tobacco: Never Alcohol Use Standard Drinks/Week Comments Never 0 (1 standard drink = 0.6 oz pur e alcohol) Depression Answer Date Recorded Patient Health Questionnaire-9 Score 20 10/10/2023 Patient Health Questionnaire-9 Score 20 10/10/2023 Last PHQ-9: Questionnaire Data Not on file 0 10/10/2023 Depression Answer Date Recorded Patient Health Questionnaire-2 Score 4 10/10/2023 Sex and Gender Information Value Date Recorded Sex Assigned at Male 05/27/2022 10:35 AM EDT Legal Sex Male 10:35 AM EDT Gender Identity Male 05/28/2023 1:31 PM EDT Sexual Orientation Straight 08/22/2023 1: 31 PM EST documented as of this encounter Miscellaneous Notes * Telephone Encounter - Sammi Alanis - 10/16/2023 12:17 PM EDT PT-1 submitted for patient. They will receive a letter of approval or denial in the mail. * Telephone Encounter - Bertha Cruz - 10/15/2023 2:53 PM EDT Patient calling requesting PT1 Home Address verified: Y/N: Yes Provider name or facility name: [facility] Facility Address: [address] [place] [address] Escort needed: Y/N: No Do you have a wheelchair: Y/N: No If yes- Manual or electric: No Visits: All future Appt's documented in this encounter Plan of Treatment Not on file documented as of this encounter Visit Diagnoses Not on filedocumented in this encounter Additional Health Concerns Assessment Noted Time PHQ-9 Depression Total Score: 024 12:57 PM EDT documented as of this encounter Care Teams Grinder Operator Relationship Specialty Start Date End Date Jory Polk MD 230 [place] [address] PCP - General Family Medicine 10/10/23 Katie Courtney [address] [place] [address] Community Health Worker 05/24/24 Yenny Shaw Subsurface Augmentee OperatorInbound Sales Representative 07/16/24 documented as of this encounter
--- OUTSIDE RECORDS SUMMARY | 2024-09-02 08:53 | XMS_ITS | Encounter Summary ---
Author Organization [employer] Address 75 [facility] 7t [place] [address] Care Team Providers Care Skin Toggler Name Role Phone Jory Polk MD Primary Care Provider [phone] Reason for Visit * Reason Onset Date Comments New Patient 05/28/2023 Encounter Details Date Type Department Care Team (Late st Contact Info) Description 05/28/2023 Telephone [facility] [address] [place] [address] Baldomero Varela MD [address] [place] [address] New Patient Social History Tobacco Use Types Packs/Day Years Used Date Smoking Tobacco: Never Assessed Sex and Gender Information Value Date Recorded Sex Assigned at Male 05/27/2022 10:35 AM EDT Legal Sex Male 10:35 AM EDT Gender Identity Male 05/28/2023 1:31 PM EDT Sexual Orientation Straight 08/22/2023 1: 31 PM EST documented as of this encounter Miscellaneous Notes * Telephone Encounter - Laura Webb - 08/19/2023 9:09 AM EST Pt call to see where on the list he is. * Telephone Encounter - Bertha Cruz - 05/28/2023 1:34 PM EDT Pt has been transfer over to wait list for [facility]. EFFECTIVE SINCE 05/28/2023 documented in this encounter Plan of Treatment Not on file documented as of this encounter Visit Diagnoses Not on filedocumented in this encounter Care Teams Skin Toggler Relationship Specialty Start Date End Date Jory Polk MD [address] [place] [address] PCP - General Family Medicine 10/10/23 Katie Courtney [address] [place] [address] Community Health Worker 05/24/24 Yenny Shaw Blasting Entry SpecialistVisual Manager 07/16/24 documented as of this encounter
--- OUTSIDE RECORDS SUMMARY | 2024-09-02 08:53 | XMS_ITS | Encounter Summary ---
Author Organization [employer] Address 75 [facility] 7t [place] [address] Care Team Providers Care Seam Hammerer Name Role Phone Jory Polk MD Primary Care Provider [phone] Reason for Visit * Reason Comments Care Coordination CHW outreach for SDO H PT-1 and food needs-referral completed Encounter Details Date Type Department Care Team (Latest Contact Info) Description 08/18/2024 Patient Outreach [facility] MED & PEDS [address] [place] [address] Jory Polk MD [address] [place] [address] Care Coordination (CHW outreach for SDOH PT-1 [...] with others, in a hotel, in a skilled nursing, living outside on the street, on a [...] encounter Progress Notes * Tom Linda - 08/18/2024 9:25 AM EST CHW Tom Linda, placed outbound call to patient for assistance with SDOH as a referral was received by the provider. Patient's name and were confirmed. Patient screened positive for the following SDOH food insecurities. CHW referral patient to the local list of pantries in the area for help. PT-1 requested was send out in behalf of patient for futures appt. [facility] [address] at [facility]. Patient verbalizes understanding, and able to agree with plan to follow up. Patient educated on extended clinic hours on Mondays through Wednesdays, and [facility] CareLoc[facility] in Lobby of [facility]. Patient provided with after-hours line for [facility], , which offer night time triage service and option to transfer to admission liaison provider if needed. documented in this encounter Plan of Treatment Not on file documented as of this encounter Visit Diagnoses Not on filedocumented in this encounter Additional Health Concerns Assessment Noted Time PHQ-9 Depression Total Score: 23 024 12:05 PM EDT documented as of this encounter Care Teams Seam Hammerer Relationship Specialty Start Date End Date Jory Polk MD [address] [place] [address] PCP - General Family Medicine 10/10/23 Katie Courtney [address] [place] [address] Community Health Worker 05/24/24 Yenny Shaw Fast Food Team MemberFurniture Restorer 07/16/24 documented as of this encounter
--- OUTSIDE RECORDS SUMMARY | 2024-09-02 08:53 | XMS_ITS | Encounter Summary ---
Author Organization [employer] Address 75 [facility] 7t [place] [address] Care Team Providers Care Claims Auditor Name Role Phone Jory Polk MD Primary Care Provider [phone] Reason for Visit * Reason Onset Date Comments PT1 03/01/2024 Encounter Details Date Type Department Care Team ([facility] st Contact Info) Description 03/01/2024 Telephone [facility] [address] [place] [address] Jory Polk MD [address] [place] [address] PT1 Social History Tobacco Use Types Packs/Day [...] with others, in a hotel, in a halfway, living outside on the street, on a [...] * Telephone Encounter - Laura Webb - 03/01/2024 11:48 AM EDT Tc from pt requesting update address in all PT1 forms. documented in this encounter Plan of Treatment Not on file documented as of this encounter Visit Diagnoses Not on filedocumented in this encounter Additional Health Concerns Assessment Noted Time PHQ-9 Depression Total Score: 15 024 9:20 AM EDT documented as of this encounter Care Teams Claims Auditor Relationship Specialty Start Date End Date Jory Polk MD [address] [place] [address] PCP - General Family Medicine 10/10/23 Katie Courtney [address] [place] [address] Community Health Worker 05/24/24 Yenny Shaw Heat Welder PlasticsLine Leader 07/16/24 documented as of this encounter
--- OUTSIDE RECORDS SUMMARY | 2024-09-02 08:53 | XMS_ITS | Encounter Summary ---
Author Organization [employer] Address 75 [facility] 7t [place] [address] Care Team Providers Care Tire Duster Name Role Phone Jory Polk MD Primary Care Provider [phone] Reason for Visit * Reason Onset Date Comments PT-1 10/30/2023 Encounter Details Date Type Department Care Team ([facility] st Contact Info) Description 10/30/2023 Telephone [facility] MEDICINE [address] [place] [address] Jory Polk MD [address] [place] [address] PT-1 Social History Tobacco Use Types Packs/Day [...] * Telephone Encounter - Sammi Alanis - 10/31/2023 2:29 PM EDT PT-1 submitted for patient. They will receive a letter of approval or denial in the mail. * Telephone Encounter - Sylvester Hsu - 10/30/2023 9:42 AM EDT Patient calling requesting PT1 Home Address verified: Y/N: Yes Provider name or facility name: [facility] Facility Address: [address] [place] [address] Escort needed: Y/N: No Do you have a wheelchair: Y/N: No If yes- Manual or electric: Visits: 2 monthly Patient calling requesting PT1 Home Address verified: Y/N: Yes Provider name or facility name: [facility] Facility Address: [address] [place] [address] Escort needed: Y/N: No Do you have a wheelchair: Y/N: No If yes- Manual or electric: Visits: 3 monthly documented in this encounter Plan of Treatment Not on file documented as of this encounter Visit Diagnoses Not on filedocumented in this encounter Additional Health Concerns Assessment Noted Time PHQ-9 Depression Total Score: 15 024 9:20 AM EDT documented as of this encounter Care Teams Tire Duster Relationship Specialty Start Date End Date Jory Polk MD [address] [place] [address] PCP - General Family Medicine 10/10/23 Katie Courtney [address] [place] [address] Community Health Worker 05/24/24 Yenny Shaw Insurance SolicitorLearning Center Coordinator 07/16/24 documented as of this encounter
--- OUTSIDE RECORDS SUMMARY | 2024-09-02 08:53 | XMS_ITS | Encounter Summary ---
Author Organization [employer] Address 75 [facility] 7t [place] [address] Care Team Providers Care Pot Firer Name Role Phone Jory Polk MD Primary Care Provider [phone] Reason for Visit * Reason Onset Date Comments PT-1 12/30/2023 Encounter Details Date Type Department Care Team ([facility] st Contact Info) Description 12/30/2023 Telephone [facility] [address] [place] [address] Jory Polk MD [address] [place] [address] PT-1 Social History Tobacco Use Types Packs/Day [...] with others, in a hotel, in a custodial, living outside on the street, on a [...] * Telephone Encounter - Sammi Alanis - 12/30/2023 4:43 PM EDT PT-1 submitted for patient. They will receive a letter of approval or denial in the mail. * Telephone Encounter - Sylvester Hsu - 12/30/2023 3:15 PM EDT Patient calling requesting PT1 Home Address verified: Y/N: Yes Provider name or facility name: [facility] Facility Address: [address] [place] [address] Dr [address]ilo [place] [address] Escort needed: Y/N: No Do you have a wheelchair: Y/N: No If yes- Manual or electric: N/A Visits: 3 times monthly documented in this encounter Plan of Treatment Not on file documented as of this encounter Visit Diagnoses Not on filedocumented in this encounter Additional Health Concerns Assessment Noted Time PHQ-9 Depression Total Score: 15 024 9:20 AM EDT documented as of this encounter Care Teams Pot Firer Relationship Specialty Start Date End Date Jory Polk MD [address] [place] [address] PCP - General Family Medicine 10/10/23 Katie Courtney [address] [place] [address] Community Health Worker 05/24/24 Yenny Shaw Antenna EngineerSales Review Clerk 07/16/24 documented as of this encounter
== END | disposition home or self-care (01) ==
PROVIDERS: PCP Family Medicine; Visit Provider Orthopaedic Surgery
CPT/HCPCS: 99213

== ENCOUNTER 2024-09-16 07:48 | Outpatient (AMB) | payer MEDICAID, SELFPAY ==
--- OUTSIDE RECORDS SUMMARY | 2024-09-16 07:51 | XMS_ITS | Encounter Summary ---
Author Organization [employer] Address 75 [facility] 7t [place] [address] Care Team Providers Care Procurement Officer Name Role Phone Jory Polk MD Primary Care Provider [phone] Reason for Visit * Reason Onset Date Comments PT-1 04/13/2024 Encounter Details Date Type Department Care Team ([facility] st Contact Info) Description 04/13/2024 Telephone [facility] [address] [place] [address] Jory Polk MD [address] [place] [address] PT-1 Social History Tobacco Use Types Packs/Day [...] Y/N: Yes Provider name or facility name: [facility] Facility Address: [address] [place] [id number] Escort needed: Y/N: No Do you have [...] documented as of this encounter Care Teams Procurement Officer Relationship Specialty Start Date End Date Jory Polk MD [address] [place] [address] PCP - General Family Medicine 10/10/23 Katie Courtney [address] [place] [address] Community Health Worker 05/24/24 Yenny Shaw Learning AdministratorGroup Account Director 07/16/24 documented as of this encounter
--- OUTSIDE RECORDS SUMMARY | 2024-09-16 07:51 | XMS_ITS | Encounter Summary ---
Author Organization [employer] Address 75 [facility] 7t [place] [address] Care Team Providers Care Academic Associate Name Role Phone Jory Polk MD Primary Care Provider Reason for Visit * Reason Onset Date Comments Call Back Request 08/10/2024 Encounter Details Date Type Department Care Team ([facility] st Contact Info) Description 08/10/2024 Telephone [facility] MEDICINE [address] [place] [address] Jory Polk MD [address] [place], [place] [phone] Call Back Request Social History Tobacco Use [...] about what was found. Contact pt at [phone] * Telephone Encounter - Stefanie James RN - 08/18/2024 10:06 AM EST TC placed to [facility] Cardiology who will fax over pt most recent cardiac testing to [facility] for PCP Dr. Polk to review. Results received and sent to HIM to can into pt chart for review. * Telephone Encounter - Stefanie James RN - 08/17/2024 2:32 PM EST TC placed to pt with phone number on file [phone] by [facility] inspector government [place] #[id number] but call failed and was unable to connect. TC placed X4. Will postpone until 08/18 for another attempt * Telephone Encounter - Savanna Alanis - 08/17/2024 2:22 PM EST Tc from pt requesting a call back in regards results. 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 Callback number [phone] * Telephone Encounter - Soraya Kraftlissa Villa - 08/10/2024 1:00 PM EST Tc from pt requesting a call back in regards results. States wire fence builder report to him saw something in results [...] documented as of this encounter Care Teams Academic Associate Relationship Specialty Start Date End Date Jory Polk MD [address] [place] [address] PCP - General Family Medicine 10/10/23 Katie Courtney [address] [place] [address] Community Health Worker 05/24/24 Yenny Shaw Wallpaper InstallerGold Burnisher 07/16/24 documented as of this encounter
--- OUTSIDE RECORDS SUMMARY | 2024-09-16 07:51 | XMS_ITS | Clinical Summary ---
Author Organization [employer] Address [address] [facility] 7t [place] [address] Care Team Providers Care Broadcaster Name Role Phone Jory Polk MD Primary Care Provider [phone] Allergies No known active allergies Medications * This document contains information received from the source organization and may not represent a complete record from that organization. albuterol 108 (90 Base) MCG/ACT inhaler Inhale 2 puffs every 4 (four) hours if needed for wheezing. 18 g 4 10/10/19 25 Active hydrOXYzine HCl (Atarax) 50 MG tabletIndicatio ns:Anxiety Take 1 tablet (50 mg) by mouth every 8 (eight) hours if needed for anxiety. 270 tablet 1 4 Active gabapentin (Neurontin) 300 MG capsule Take 1 capsule (300 mg) by mouth 3 times daily. 90 capsule 1 4 Active Blood Pressure kitIndications: Elevated blood pressure reading 1 Units Once per day. 1 kit 4 Active cloNIDine (Catapres) 0.1 MG tablet TOME ALEKS TABLETA POR V A ORAL AL ACOSTARSE CUANDO SEA NECESARIO 4 Active QUEtiapine (SEROquel) 200 MG tablet TAKE 1 TABLET BY MOUTH EVERY NIGHT AT BEDTIME PARA DORMIR 4 Active buPROPion XL (Wellbutrin XL) 300 MG 24 hr tablet TOME 1 TABLETA POR V A ORAL TODOS LOS D 4 Active prazosin (Minipress) 1 MG capsule TOME 1 C PSULA POR V A ORAL TODOS LOS D AL ACOSTARSE 4 Active HYDROcodone-filomena taminophen (Gadsden) 5-325 MG tablet TOME ALEKS TABLETA POR V A ORAL CADA CUATRO A SEIS HORAS CUANDO SEA NECESARIO PARA EL DOLOR 4 Active acetaminophen (Tylenol Extra Strength) 500 MG tablet Take 2 tablets (1,000 mg) by mouth every 8 (eight) hours if needed for mild pain. 60 tablet 4 Active PARoxetine (Paxil) 20 MG tablet TOME 1 TABLETA POR V A ORAL TODOS LOS D 4 Active diclofenac (Cataflam) 50 MG tablet TOME 1 TABLETA POR VIA ORAL JEANETH VECES AL VIGNESH 90 tablet 5 Active amLODIPine (Norvasc) 10 MG tablet TAKE 1 TABLET (10 MG) BY MOUTH ONCE PER DAY. 90 tablet 1 5 Active Active Problems Problem Noted Date Diagnosed Date [...] intervention , Patient to reach out to [facility] team as needed, Patient to reach out to [facility] as needed, and Patient to call [facility] for OP and psych med management intake. We discussed that if by end of summer he has not been connected to psych medication management he will follow up with [facility] for alternative options Assessment & Plan (11/17/2023 3:53 PM EDT): New/Additional Services needed PCP management Off-site services for Behavioral Health Integration Plan Internal Follow up with [facility], Cold handoff to CHW/FP, Follow up with [facility] on 10/20/23 External Patient to reach out to [facility] for services around OP BH therapy and psych medication management Patient Self Plan Patient to utilize skills provided in intervention , Patient to reach out to [facility] team as needed, and Patient to reach out to [facility] as needed Assessment & Plan (10/11/2023 1:54 AM EDT): Hx of bipolar disorder with no current psychiatric or therapeutic care in place. Plan is to initiate the process of setting up the patient with the necessary psychiatric and medical services, with a request for services to be provided in Kyr[place]z. Encounters Date Type Department Care Team Description 08/18/2024 Patient Outreach [facility] [address] [place] [address] Jory Polk MD Care Coordination (CHW outreach for SDOH PT-1 and food needs-referral completed /) 08/13/2024 Refill [facility] [address] [place] [address] Jory Polk MD 08/13/2024 Telephone [facility] [address] [place] [address] Jory Polk MD Appointment 08/12/2024 Patient Outreach [facility] [address] [place] [address] Jory Polk MD Care Coordination (CHW outreach for SDOH PT-1 and food needs-referral completed /) 08/12/2024 Telephone [facility] [address] [place] [address] Jory Polk MD PT1 08/12/2024 Telephone [facility] [address] [place] [address] Jory Polk MD PT-1 08/10/2024 Telephone [facility] [address] [place] [address] [phone] Jory Polk MD Call Back Request 08/02/2024 Telephone [facility] [address] [place] [address] Jory Polk MD Call Back Request 07/27/2024 Telephone [facility] [address] [place] [address] [phone] Jory Polk MD echo/stress test orders 07/26/2024 10:15 AM EST Office Visit [facility] [address] [place] [address] Jory Polk MD Atypical chest pain (Primary Dx); Dysphagia, unspecified type; Chronic pain of left knee 07/26/2024 Refill [facility] [address] [place] [address] Jory Polk MD 07/26/2024 Telephone [facility] [address] [place] [address] Jory Polk MD Referral 07/26/2024 Travel 07/16/2024 Telephone [facility] [address] [place] [address] Jory Polk MD Care Coordination ([facility] ) 07/07/2024 Telephone [facility] [address] [place] [address] Jory Polk MD Nurse Triage 06/21/[address] [address] Jory Polk MD Nurse Triage 06/18/2024 9:00 AM EST Office Visit [facility] [address] [place] [address] Jory Polk MD Chronic pain of left knee (Primary Dx) 06/18/2024 Patient Outreach [address] [address] Antonio Colon 06/18/2024 Travel 06/17/2024 Patient Outreach [facility] [address] [place] [address] Jory Polk MD Care Coordination (CHW outreach for SDOH PT-1 and food needs-referral completed /) from Last 3 Months Immunizations Name Administration [...] 07/26/2024 10:34 AM EST Atypical chest pain NE ARTHROCENTESIS ASPIR&/INJ MAJOR JT/BURSA W/O US Routine [...] 1 AM EST 08/20/2024 10:35 AM EST [facility] LABS - 08/23/2024 10:29 AM EST ----- ------- Name: Raheem Cuevas ?Age/Sex: 58/M ? : 1965 Unit#: [id number] ?? Attend Dr: Inocencio Youngblood MD ?Re08/20/24 ?Status: DEP SDC ? Location: HO.SSS ?Disch: ? ----- ------- SPEC : [id number] ?RECD: 08/20/24-5 ? STATUS: ??SOUT ? REQ NUM: [id number] ? TEJ: 08/20/24-1001 ? SUBM DR: Inocencio Youngblood MD ? ENTERED: ??08/20/24-8 ?SP TYPE: Surgical ? OTHR DR: Jory [...] however, may not be recoverable following processing. [facility] Copies To: ?? Inocencio Youngblood MD ?? [facility] ?? [address] ?? [place] [address] ?? [phone] ? CONTINUED ON NEXT PAGE ----- ------- Name: Raheem Cuevas ?Age/Sex: 58/M ? : 1965 Unit#: [id number] ?? Attend Dr: Inocencio Youngblood MD ?Re08/20/24 ?Status: DEP SDC ? Location: HO.SSS ?Disch: ? ----- ------- SPEC : [id number] ?RECD: 08/20/24 ? STATUS: ??SOUT ? REQ NUM: [id number] ? TEJ: 08/20/24-1000 ? SUBM DR: Inocencio Youngblood MD ? ENTERED: ??08/20/24 ?SP TYPE: Surgical ? OTHR DR: Jory Polk MD ? ORDERED: ??Gross Micro L4/2 ? Copies To: ??(Continued) ?? Jory Polk MD ?? [address] [facility] ?? [place] [phone] ?? [phone] ----- ------- Signed (signature on file) Litzy Isael 08/23/24 1029 ? ----- ------- ? END OF REPORT ? us Generic External Data Provider LAB CYTOLOGY ALBAE RABLES Final Result Performing Organization Address [facility]/ZIP Co de Phone Number [facility] [address] [place] [address] [phone] * TSH W/Reflex to FT4 (08/13/2024 8:05 AM EST) [facility] TSH reflex Free T4 1.42 0.32 - 4.0 uIU/mL [facility] Blood Venous blood specimen / Unknown 08/13/2024 8:05 AM EST 08/13/2024 2:12 PM EST us Jory Polk MD LAB BLOOD ORDERABLES Final Re sult Performing Organization Address [facility]/ZIP Co de Phone Number [facility] [address] [place], [place] [phone] * (ABNORMAL) CBC auto differential (08/13/2024 8:05 AM EST) [facility] White Blood Count 6.2 4.8 - 10.8 X10*3/uL [facility] Red Blood Count 5.22 4.60 - 5.80 X10*6/uL [facility] Hemoglobin 12.2(L) 14.0 - 18.0 g/dl [facility] Hematocrit 39.3(L) 42.0 - 52.0 % [facility] Mean Corpuscular Volume 75.3(L) 80.0 - 98.0 fL [facility] Mean Corpuscular Hemoglobin 23.4(L) 27.0 - 33.0 pg [facility] Mean Corpuscular HGB Conc 31.0 31.0 - 36.0 g/dl [facility] Red Cell Distribution Width 17.2(H) 11.0 - 16.0 % [facility] Platelet Count 243 160 - 400 X10*3/uL [facility] Mean Platelet Volume 11.4 9.4 - 12.4 fL [facility] Neutrophils Percent Auto 60.5 45 - 73 % [facility] Imm Gran Pct Auto 0.2 0.0 - 0.4 % [facility] Lymphocytes Percent Auto 28.5 20 - 40 % [facility] Monocytes Percent Auto 8.4 2 - 11 % [facility] Eosinophils Percent Auto 1.9 0 - 4 % [facility] Basophils Percent Auto 0.5 0 - 2 % [facility] NRBC Pct Auto 0.0 0.0 - 0.2 /100WBC [facility] Neutrophils Absolute Auto 3.8 2.0 - 8.3 x10*3/uL [facility] Imm Gran Abs Auto 0.01 0.00 - 0.03 X10*3/uL [facility] Lymphocytes Absolute Auto 1.8 1.2 - 4.9 X10*3/uL [facility] Monocytes Absolute Auto 0.5 0.1 - 1.2 X10*3/uL [facility] Eosinophils Absolute Auto 0.1 0.0 - 0.4 X10*3/uL [facility] Basophils Absolute Auto 0.0 0.0 - 0.2 X10*3/uL [facility] NRBC Abs Auto 0.000 0.0 - 0.012 X10*3/uL [facility] Blood Venous blood specimen / Unknown 08/13/2024 8:05 AM EST 08/13/2024 2:15 PM EST us Jory Polk MD LAB BLOOD ORDERABLES Final Re sult [facility] [address] [place] [address] [phone] * (ABNORMAL) Comprehensive Metabolic Panel (08/13/2024 8:05 AM EST) Sodium 140 135 - 145 mmol/L [facility] Potassium 4.0 3.3 - 5.1 mmol/L [facility] Chloride 107 96 - 108 mmol/L [facility] Carbon Dioxide 28 22 - 29 mmol/L [facility] Anion Gap 9(L) 12 - 20 [facility] Urea Nitrogen (BUN) 11 9 - 16 mg/dL [facility] Creatinine, Serum 0.80 0.5 - 1.4 mg/dL [facility] Estimated Glomerular Filt Rate >60 [facility] Comment:Chronic Kidney Disea se: Estimated GFR < 60 mL/min/[id number] Kidney Disease: Estimated GFR < 15 mL/min/1.73m2 Glucose 92 60 - 115 mg/dL [facility] Calcium 9.2 8.4 - 10.2 mg/dL [facility] Bilirubin, Total 0.3 0.0 - 1.0 mg/dL [facility] Aspartate Amino Transferase 27 5 - 37 U/L [facility] Alanine Aminotransferase 28 0 - 40 U/L [facility] Total Protein 7.5 6.5 - 8.0 g/dL [facility] Albumin Level 4.4 3.5 - 5.0 g/dL [facility] Alkaline Phosphatase 103 39 - 117 U/L [facility] Blood Venous blood specimen / Unknown 08/13/2024 8:05 AM EST 08/13/2024 2:12 PM EST us Jory Polk MD LAB BLOOD ORDERABLES Final Re sult [facility] [address] [place] [address] [phone] * Transthoracic Echo (TTE) Complete (08/06/2024) us Jory Polk MD CV ECHO PROCEDURES Final Resu lt * ECG 12 lead (07/26/2024 10:34 AM EST) Narrative Jory Polk MD - 07/26/2024 10:34 AM EST HR 60 bpm Regular rhyhm Abnl R wave progression RR' III, aVL us Jory Polk MD ECG ORDERABLES Final Result * NE ARTHROCENTESIS ASPIR&/INJ MAJOR JT/BURSA W/O US (06/21/2024 [...] infection and bleeding ??Alternatives discussed: ??Alternative treatment [place] protocol: ??Imaging studies available: no ?Site/side marked: [...] 8:29 AM EDT) Triglycerides 66 <150 mg/dL [facility] Comment:Desirable Triglyceri de: less than 150 mg/dLBorderline High Triglyceride 150-199 mg/dLHigh Triglyceride: 200-499 mg/dLVery High Triglyceride: greater than or equal to 5OO mg/dL Cholesterol 188 <200 mg/dL [facility] Comment:Desirable Cholestero l: less than 200 mg/dLBorderline High Cholesterol: 200-239 mg/dLHigh Cholesterol: greater than 239 mg/dL LDL Cholesterol Calculated 105(H) <100 mg/dL [facility] Comment:Desirable LDL: less than 100 mg/dLNear Optimal/Above Optimal LDL: 110- 129 mg/dLBorderline High LDL: 130-159 mg/dLHigh LDL: 160-189 mg/dLVery High LDL: greater than or equal to 190 mg/dL HDL Cholesterol 70 >40 mg/dL [facility] Comment:Desirable HDL: great er than 40 mg/dL Note: This HDL assay may give artificially low results in patients with liver disease. Blood Venous blood specimen / Unknown 12/15/2023 8:29 AM EDT 12/15/2023 2:27 PM EDT us Jory Polk MD LAB BLOOD ORDERABLES Final Re sult [facility] [address] [place] [phone] * Hepatitis C Antibody with Reflex to HCV, RNA, Quantitative, Real-Time PCR (12/15/2023 8:24 AM EDT) Hepatitis C Antibody Nonreactive Nonreactive [facility] Comment:Antibodies to HCV no t detected; does not exclude early acuteHCV infection. Blood Venous blood specimen / Unknown 12/15/2023 8:24 AM EDT 12/15/2023 2:27 PM EDT Jory Polk MD LAB BLOOD ORDERABLES Final Re sult Performing Organization Address [facility] Co de Phone Number [facility] [address] [place] [address] [phone] * HIV-1/2 Antigen and Antibodies, Fourth Generation, with Reflexes (12/15/2023 8:24 AM EDT) [facility] HIV AB/AG Nonreactive Nonreactive [facility] Comment:HIV-1 p24 Ag and/or HIV-1/HIV-2 Ab not detected.A test result that is nonreactive does not exclude thepossibility of exposure to or infection with HIV-1 and/orHIV-2. Nonreactive results in this assay for individualswith prior exposure to HIV-1 and/or HIV-2 may be due toantigen and antibody levels that are below the limit ofdetection of this assay.The ITelagen HIV Ag/Ab Combo assay result andsupplemental assay results should be interpreted inconjunction with the patient's clinical presentation,history and other laboratory results. If the results areinconsistent with clinical evidence, additional testing issuggested to confirm the result. Blood Venous blood specimen / Unknown 12/15/2023 8:24 AM EDT 12/15/2023 2:27 PM EDT us Jory Polk MD LAB BLOOD ORDERABLES Final Re sult Performing Organization Address [facility]/ZIP Co de Phone Number [facility] [address] [place] [address] [phone] from Last 3 Months or Most Recently Relevant to Health Maintenance Insurance [facility] C3 Care Teams Broadcaster Relationship Specialty Start Date End Date Jory Polk MD [address] [place] [address] PCP - General Family Medicine 10/10/23 Katie Courtney [address] [place] [address] Community Health Worker 05/24/24 Yenny Shaw Purchasing AssociateStrike Planning Applications 07/16/24
--- OUTSIDE RECORDS SUMMARY | 2024-09-16 07:51 | XMS_ITS | Encounter Summary ---
Author Organization [employer] Address [address] [facility] 7t [place] [address] Care Team Providers Care Automotive Software Engineer Name Role Phone Jory Polk MD Primary Care Provider [phone] Reason for Visit * Reason Onset Date Comments PT1 08/12/2024 Encounter Details Date Type Department Care Team ([facility] st Contact Info) Description 08/12/2024 Telephone [facility] [address] [place] [address] Jory Polk MD [address] [place] [address] PT1 Social History Tobacco Use Types Packs/Day [...] Y/N: Yes Provider name or facility name: [address] [place] [address] [place] [address] Escort needed: Y/N: Yes Do you have [...] documented as of this encounter Care Teams Automotive Software Engineer Relationship Specialty Start Date End Date Jory Polk MD [address] [place], [place] [address] [address] PCP - General Family Medicine 10/10/23 Katie Courtney [address] [place] [address] Community Health Worker 05/24/24 Yenny Shaw Gin Pole OperatorSupervisor Plastering 07/16/24 documented as of this encounter
--- OUTSIDE RECORDS SUMMARY | 2024-09-16 07:51 | XMS_ITS | Encounter Summary ---
Author Organization [employer] Address [address] [facility] 7t [place] [address] Care Team Providers Care Linseed Oil Boiler Name Role Phone Jory Polk MD Primary Care Provider [phone] Reason for Visit * Reason Onset Date Comments Referral 06/10/2024 Encounter Details Date Type Department Care Team ([facility] st Contact Info) Description 06/10/2024 Telephone [facility] MEDICINE [address] [place] [address] Jory Polk MD [address] [place] [address] Referral Social History Tobacco Use Types Packs/Day [...] name or facility name: [facility] Facility Address: [address] [place] [address] Escort needed: Y/N: No Do you have [...] documented as of this encounter Care Teams Linseed Oil Boiler Relationship Specialty Start Date End Date Jory Polk MD [address] [place] [address] PCP - General Family Medicine 10/10/23 Katie Courtney [address] [place] [phone] Community Health Worker 05/24/24 Yenny Shaw Hip Hop PerformersNight Nurse 07/16/24 documented as of this encounter
--- OUTSIDE RECORDS SUMMARY | 2024-09-16 07:51 | XMS_ITS | Encounter Summary ---
Author Organization [employer] Address [address] [facility] 7t [place] [address] Care Team Providers Care Manufacturing Engineering Professor Name Role Phone Jory Polk MD Primary Care Provider [phone] Reason for Visit * Reason Onset Date Comments PT-1 08/12/2024 Encounter Details Date Type Department Care Team ([facility] st Contact Info) Description 08/12/2024 Telephone [facility] [address] [place] [address] Jory Polk MD [address] [place] [address] PT-1 Social History Tobacco Use Types Packs/Day [...] Y/N: Yes Provider name or facility name: [address] [place] [address] Dr Page [facility] [address] Escort needed: Y/N: No Do you have [...] documented as of this encounter Care Teams Manufacturing Engineering Professor Relationship Specialty Start Date End Date Jory Polk MD [address] [place] [address] PCP - General Family Medicine 10/10/23 Katie Courtney [address] [place] [address] Community Health Worker 05/24/24 Yenny Shaw Medical Secretary TeacherCorporate Relations Manager 07/16/24 documented as of this encounter
--- OUTSIDE RECORDS SUMMARY | 2024-09-16 07:51 | XMS_ITS | Encounter Summary ---
Author Organization [employer] Address [address] [facility] 7t [place] [address] Care Team Providers Care Loss Mitigation Specialist Name Role Phone Jory Polk MD Primary Care Provider [phone] Reason for Visit * Reason Onset Date Comments Referral 07/26/2024 Encounter Details Date Type Department Care Team ([facility] st Contact Info) Description 07/26/2024 Telephone [facility] [address] [place], [place] [phone] Jory Polk MD [address] [place] [address] Referral Social History Tobacco Use Types Packs/Day [...] with others, in a hotel, in a nursing home, living outside on the street, on a [...] from pt calling 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
--- OUTSIDE RECORDS SUMMARY | 2024-09-16 07:52 | XMS_ITS | Encounter Summary ---
Author Organization [employer] Address [address] [facility] 7t [place] [address] Care Team Providers Care Patient Financial Advocate Name Role Phone Jory Polk MD Primary Care Provider [phone] Reason for Visit * Reason Onset Date Comments PT-1 12/30/2023 Encounter Details Date Type Department Care Team ([facility] st Contact Info) Description 12/30/2023 Telephone [facility] MED[facility] [address] [place] [address] Jory Polk MD [address] [place] [address] PT-1 Social History Tobacco Use Types Packs/Day [...] Y/N: Yes Provider name or facility name: [facility] Facility Address: [address] [place] [address] Dr Camilo GATICA [address] Escort needed: Y/N: No Do you have [...] documented as of this encounter Care Teams Patient Financial Advocate Relationship Specialty Start Date End Date Jory Polk MD [address] [place] [address] PCP - General Family Medicine 10/10/23 Katie Courtney [address] [place] [address] Community Health Worker 05/24/24 Yenny Shaw Room Service ManagerLine Service Person 07/16/24 documented as of this encounter
--- OUTSIDE RECORDS SUMMARY | 2024-09-16 07:52 | XMS_ITS | Encounter Summary ---
Author Organization [employer] Address 75 [facility] 7t [place] [address] Care Team Providers Care Medical Laboratory Assistant Name Role Phone Jory Polk MD Primary Care Provider [phone] Reason for Visit * Reason Comments Care Coordination CHW outreach for SDO H PT-1 and food needs-referral completed Encounter Details Date Type Department Care Team (Latest Contact Info) Description 08/18/2024 Patient Outreach [facility] PEDS [address] [place] [address] Jory Polk MD 505 [place] [address] Care Coordination (CHW outreach for SDOH PT-1 [...] in behalf of patient for futures appt. [facility] [address] [facility] [address] at [facility]. Patient verbalizes understanding, and able to agree with plan to follow up. Patient educated on extended clinic hours on Mondays through Wednesdays, and [facility] Care[facility] in Lobby of [facility]. Patient provided with after-hours line for [facility], , which offer night time triage service and option to transfer to television presenter provider if needed. documented in this encounter Plan of Treatment Not on file documented as of this encounter Visit Diagnoses Not on filedocumented in this encounter Additional Health Concerns Assessment Noted Time PHQ-9 Depression Total Score: 23 024 12:05 PM EDT documented as of this encounter Care Teams Medical Laboratory Assistant Relationship Specialty Start Date End Date Jory Polk MD [address] [place] [address] PCP - General Family Medicine 10/10/23 Katie Courtney [address] [place] [address] Community Health Worker 05/24/24 Yenny Shaw Management AideBatting Machine Operator Insulation 07/16/24 documented as of this encounter
--- OUTSIDE RECORDS SUMMARY | 2024-09-16 07:52 | XMS_ITS | Encounter Summary ---
Author Organization [employer] Address 75 [facility] 7t [place] [address] Care Team Providers Care Health And Wellness Manager Name Role Phone Jory Polk MD Primary Care Provider [phone] Reason for Visit * Reason Onset Date Comments New Patient 05/28/2023 Encounter Details Date Type Department Care Team (Late st Contact Info) Description 05/28/2023 Telephone [facility] MEDICINE [address] [place] [address] Baldomero Varela MD 230 [place] [address] New Patient Social History Tobacco Use Types [...] been transfer over to wait list for K9 HANDLER. EFFECTIVE SINCE 05/28/2023 documented in this encounter Plan of Treatment Not on file documented as of this encounter Visit Diagnoses Not on filedocumented in this encounter Care Teams Health And Wellness Manager Relationship Specialty Start Date End Date Jory Polk MD [address] [place] [address] PCP - General Family Medicine 10/10/23 Katie Courtney [address] [place] [address] Community Health Worker 05/24/24 Yenny Shaw Curriculum ManagerGas Treater 07/16/24 documented as of this encounter
--- OUTSIDE RECORDS SUMMARY | 2024-09-16 07:52 | XMS_ITS | Encounter Summary ---
Author Organization [employer] Address 75 [facility] 7t [place] [address] Care Team Providers Care Bakery Clerk Name Role Phone Jory Polk MD Primary Care Provider [phone] Reason for Visit * Reason Onset Date Comments PT1 12/02/2023 Encounter Details Date Type Department Care Team ([facility] st Contact Info) Description 12/02/2023 Telephone C [facility]EDS 505 [place], [place] [id number] Jory Polk MD 505 [place] [address] PT1 Social History Tobacco Use Types Packs/Day [...] with others, in a hotel, in a half-way, living outside on the street, on a [...] calling in regards to PT1. States called [email or web address] and was advised did not receive request and provider will need to call to expedite PT1 for 12/07. * Telephone Encounter - Sammi Alanis - 12/05/2023 9:49 AM EDT PT-1 submitted for patient. They will receive a letter of approval or denial in the mail. * Telephone Encounter - Mk Taylor - 12/04/2023 11:51 AM EDT Tc from pt requesting status on PT-1, proposal lead writer did advise can take 24 hrs up to a week, pt stated they have a MRI scheduled for 12/08/23. Also advised can take another week for insurance approval. Pt verbalizes understanding. * Telephone Encounter - Polina Luis - 12/02/2023 12:33 PM EDT Patient calling requesting PT1 Home Address verified: Y/N: Yes Provider name or facility name: [facility] Facility Address: [address] [place] [address] Escort needed: Y/N: No Do you have [...] documented as of this encounter Care Teams Bakery Clerk Relationship Specialty Start Date End Date Jory Polk MD [address] [place] [address] PCP - General Family Medicine 10/10/23 Katie Courtney [address] [place] [address] Community Health Worker 05/24/24 Yenny Shaw Business CoordinatorRanch Hand Livestock 07/16/24 documented as of this encounter
--- OUTSIDE RECORDS SUMMARY | 2024-09-16 07:52 | XMS_ITS | Encounter Summary ---
Author Organization [employer] Address 75 [facility] 7t [place] [address] Care Team Providers Care Military Science Instructor Name Role Phone Jory Polk MD Primary Care Provider [phone] Reason for Visit * Reason Onset Date Comments PT-1 03/11/2024 Encounter Details Date Type Department Care Team ([facility] st Contact Info) Description 03/11/2024 Telephone [facility] MEDICINE 230 [place] [address] Jory Polk MD 505 [place] [address] PT-1 Social History Tobacco Use Types Packs/Day [...] Y/N: Yes Provider name or facility name: [facility] Facility Address: [address] [place] [address] Escort needed: Y/N: No Do you have a wheelchair: Y/N: No Visits: All future appt's Pt has a future appt on 04/01 @ 8 Patient calling requesting PT1 Home Address verified: Y/N: Yes Provider name [facility] facility name: [facility] Facility Address: [address] [place] [address] Escort needed: Y/N: No Do you have [...] documented as of this encounter Care Teams Military Science Instructor Relationship Specialty Start Date End Date Jory Polk MD [address] [place] [address] PCP - General Family Medicine 10/10/23 Katie Courtney [address] [place] [address] Community Health Worker 05/24/24 Yenny Shaw Inspector Repairer SandstoneConsulting Project Director 07/16/24 documented as of this encounter
--- OUTSIDE RECORDS SUMMARY | 2024-09-16 07:52 | XMS_ITS | Encounter Summary ---
Author Organization [employer] Address 75 [facility] 7t [place] [address] Care Team Providers Care Food Aide Name Role Phone Jory Polk MD Primary Care Provider [phone] Reason for Visit * Reason Onset Date Comments PT-1 02/05/2024 Encounter Details Date Type Department Care Team ([facility] st Contact Info) Description 02/05/2024 Telephone [facility] MEDICINE 230 [place] [address] Jory Polk MD 505 [place] [address] PT-1 Social History Tobacco Use Types Packs/Day [...] Y/N: Yes Provider [facility] facility name: [facility] Facility Address: [address] [place] [address] Escort needed: Y/N: No Do you have [...] as of this encounter Care Teams Food Aide Relationship Specialty Start Date End Date Jory Polk MD [address] [place] [address] PCP - General Family Medicine 10/10/23 Katie Courtney [address] [place] [address] Community Health Worker 05/24/24 Yenny Shaw Aerial AdvertiserService Center Specialist 07/16/24 documented as of this encounter
--- OUTSIDE RECORDS SUMMARY | 2024-09-16 07:52 | XMS_ITS | Encounter Summary ---
Author Organization [employer] Address 75 [facility] 7t [place] [address] Care Team Providers Care Nitroglycerin Distributor Name Role Phone Jory Polk MD Primary Care Provider [phone] Reason for Visit * Reason Onset Date Comments Pt1 10/15/2023 Encounter Details Date Type Department Care Team ([facility] st Contact Info) Description 10/15/2023 Telephone [facility] MEDICINE 230 [place] [address] Jory Polk MD 505 [place] [address] Pt1 Social History Tobacco Use Types Packs/Day [...] Y/N: Yes Provider name or facility name: [facility] Facility Address: [address] [place] [address] Escort needed: Y/N: No Do you have [...] documented as of this encounter Care Teams Nitroglycerin Distributor Relationship Specialty Start Date End Date Jory Polk MD [address] [place] [address] PCP - General Family Medicine 10/10/23 Katie Courtney [address] [place] [address] Community Health Worker 05/24/24 Yenny Shaw Orthopedic CoderLiquid Waste Treatment Plant Operator 07/16/24 documented as of this encounter
--- OUTSIDE RECORDS SUMMARY | 2024-09-16 07:52 | XMS_ITS | Encounter Summary ---
Author Organization [employer] Address 75 [facility] 7t [place] [address] Care Team Providers Care Sample Collector Name Role Phone Jory Polk MD Primary Care Provider [phone] Reason for Visit * Reason Onset Date Comments PT-1 02/10/2024 Encounter Details Date Type Department Care Team ([facility] st Contact Info) Description 02/10/2024 Telephone [facility] MEDICINE 230 [place] [address] Jory Polk MD 505 [place] [address] PT-1 Social History Tobacco Use Types Packs/Day [...] Y/N: Yes Provider name or facility name: [facility] Facility Address: [address] [place] [address] Escort needed: Y/N: No Do you have [...] documented as of this encounter Care Teams Sample Collector Relationship Specialty Start Date End Date Jory Polk MD 230 [place] [address] PCP - General Family Medicine 10/10/23 Katie Courtney [address] [place] [address] Community Health Worker 05/24/24 Yenny Shaw Jewelry FinisherPen And Pencil Repairer 07/16/24 documented as of this encounter
--- OUTSIDE RECORDS SUMMARY | 2024-09-16 07:52 | XMS_ITS | Encounter Summary ---
Author Organization [employer] Address 75 [facility] 7t [place] [address] Care Team Providers Care Medical/Surgery Registered Nurse Name Role Phone Jory Polk MD Primary Care Provider [phone] Reason for Visit * Reason Onset Date Comments PT1 03/01/2024 Encounter Details Date Type Department Care Team ([facility] st Contact Info) Description 03/01/2024 Telephone [facility] MEDICINE 230 [place] [address] Jory Polk MD 505 [place] [address] PT1 Social History Tobacco Use Types Packs/Day [...] documented as of this encounter Care Teams Medical/Surgery Registered Nurse Relationship Specialty Start Date End Date Jory Polk MD 230 [place] [address] PCP - General Family Medicine 10/10/23 Katie Courtney [address] [place] [address] Community Health Worker 05/24/24 Yenny Shaw Workers Compensation AdministratorFinance Teacher 07/16/24 documented as of this encounter
--- OUTSIDE RECORDS SUMMARY | 2024-09-16 07:52 | XMS_ITS | Encounter Summary ---
Author Organization [employer] Address 75 [facility] 7t [place] [address] Care Team Providers Care Medical Practitioners Name Role Phone Jory Polk MD Primary Care Provider [phone] Reason for Visit * Reason Onset Date Comments FYI 03/22/2024 Encounter Details Date Type Department Care Team ([facility] st Contact Info) Description 03/22/2024 Telephone [facility] MEDICINE 230 [place] [address] Jory Polk MD 505 [place] [address] FYI Social History Tobacco Use Types Packs/Day [...] with others, in a hotel, in a jail, living outside on the street, on a [...] any questions you can contact pt at [phone]. (South Sudanese Speaker) documented in this encounter Plan of Treatment Not on file documented as of this encounter Visit Diagnoses Not on filedocumented in this encounter Additional Health Concerns Assessment Noted Time PHQ-9 Depression Total Score: 15 024 9:20 AM EDT documented as of this encounter Care Teams Medical Practitioners Relationship Specialty Start Date End Date Jory Polk MD [address] [place] [address] PCP - General Family Medicine 10/10/23 Katie Courtney [address] [place] [address] Community Health Worker 05/24/24 Yenny Shaw Travel Services ProfessionalNutrition Teacher 07/16/24 documented as of this encounter
--- OUTSIDE RECORDS SUMMARY | 2024-09-16 07:52 | XMS_ITS | Encounter Summary ---
Author Organization [employer] Address 75 [facility] 7t [place] [address] Care Team Providers Care Spiritual Advisor Name Role Phone Jory Polk MD Primary Care Provider [phone] Reason for Visit * Reason Onset Date Comments PT1 12/23/2023 Encounter Details Date Type Department Care Team ([facility] st Contact Info) Description 12/23/2023 Telephone [facility] MEDICINE 230 [place] [address] Jory Polk MD 505 [place] [address] PT1 Social History Tobacco Use Types Packs/Day [...] Y/N: Yes Provider name or facility name: [facility] Facility Address: [address] [place] [address] Escort needed: Y/N: No Do you have [...] documented as of this encounter Care Teams Spiritual Advisor Relationship Specialty Start Date End Date Jory Polk MD [address] [place] [address] PCP - General Family Medicine 10/10/23 Katie Courtney [address] [place] [address] Community Health Worker 05/24/24 Yenny Shaw Order ManagerClinical Education Specialist 07/16/24 documented as of this encounter
--- OUTSIDE RECORDS SUMMARY | 2024-09-16 07:52 | XMS_ITS | Encounter Summary ---
Author Organization [employer] Address 75 [facility] 7t [place] [address] Care Team Providers Care Thread Cutter Tender Name Role Phone Jory Polk MD Primary Care Provider [phone] Reason for Visit * Reason Onset Date Comments PT-1 10/30/2023 Encounter Details Date Type Department Care Team ([facility] st Contact Info) Description 10/30/2023 Telephone [facility] MEDICINE 230 [place] [address] Jory Polk MD 505 [place] [address] PT-1 Social History Tobacco Use Types Packs/Day [...] Y/N: Yes Provider name or facility name: [facility] Facility Address: [address] [place] [address] Escort needed: Y/N: No Do you have a wheelchair: Y/N: No If yes- Manual or electric: Visits: 2 monthly Patient calling requesting PT1 Home Address verified: Y/N: Yes Provider name or facility name: [facility] Facility Address: [address] [place] [address] Escort needed: Y/N: No Do you have [...] documented as of this encounter Care Teams Thread Cutter Tender Relationship Specialty Start Date End Date Jory Polk MD 230 [place] [address] PCP - General Family Medicine 10/10/23 Katie Courtney [address] [place] [address] Community Health Worker 05/24/24 Yenny Shaw Zipper Machine OperatorBuncher Operator 07/16/24 documented as of this encounter
--- NOTE | 2024-09-16 08:00 | MHC.OFFVIS ---
Vital Signs 09/16/24 08:01 Height 5 ft 5 in Weight 165 lb BMI 27.5 BP 116/77 Blood Pressure Location Rt brachial Position Sitting Pulse 81 Pulse Source Pulse Oximeter Pulse Oximetry (%) 98 Oxygen Delivery Method Room Air Intake Visit Reasons: Specified Post Procedural States Allergies No Known Allergies [No Known Allergies*] Allergy (Verified 09/16/24 08:03) HPI Comments Details: Raheem is very pleasant 58 years old gentleman who presents in my office with complains on severe pain in his shoulder. He reports at the moment of the exam his pain in his shoulders 10/10. He reported that he had an accident back in [place] many years ago in . He has a surgery in [place] in . He had 2 surgeries on rotator cuff repair with Dr. Sauceda in 2022 and 2023. While the surgeries provided patient excellent range of motion and shoulder mobility continues to complain on severe pain in his shoulder. He reports that because of his pain he can not sleep normally can not do activities of daily living can not take care of himself and can not function normally. 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 He reports that weather changes in movements aggravate his pain. He reports that pain is severe 10/10 all the time. He is taking NSAIDs (IC pain relief and diclofenac) and he reports that after he is taking those medications his pain becomes 3/10. However the pain relief lasts only 30 minutes to an hour and after that the pain comes back to 10/10. He had extensive course of physical therapy, he has home exercise programs and unfortunately after 20 sessions of extensive physical therapy and home exercise programs his pain continues to be 10/10. He had an x-ray of his left shoulder results of which dictated as below. He never had any shoulder injections. His past medical history is significant for kidney stones asthma arthritis, depression, bipolar, anxiety and claustrophobia. His psychiatrist is Dr. Katie Cassidy. His past surgical history is significant for hernia repair and treat shoulder surgeries. He admits smoking cigarettes denies drinking alcohol is coffee and caffeinated beverages and denies recreational drugs. [facility] Medical History Left shoulder pain Rotator cuff tear, left Asthma Surgical History Left inguinal hernia (05/13/24) S/P left rotator cuff repair H/O colonoscopy History of facial surgery Hx of shoulder surgery Family History Father Colon cancer Paternal Uncle Stomach cancer Paternal Grandfather Stomach cancer Social History Housing Other:: [facility] [place] Are you a primary home health care provider to a significant other at home: No Do you presently have visiting nurse or other home services: No Alcohol intake: current Alcohol intake frequency: does not drink Patient Tobacco Use Status: Current everyday Tobacco user Tobacco use type: Cigarette Current occupational status: employed Current occupation: [employer], Right hand dominant Review of Systems Const All systems reviewed & are unremarkable except as noted in HPI and below Reports no additional complaints Card Reports no additional complaints Resp Reports no additional complaints GI Reports no additional complaints Reports no additional complaints Musc Reports as per HPI Neuro Reports no additional complaints Psych Reports as per HPI Physical Exam Vital Signs: Last Vital Signs Pulse 81 09/16/24 08:01 BP 116/77 09/16/24 08:01 Pulse Ox 98 09/16/24 08:01 Oxygen Delivery Method Room Air 09/16/24 08:01 BMI result Body Mass Index 27.5 Const General: cooperative, healthy appearing, no acute distress and well groomed Orientation/consciousness: oriented to person and oriented to place HEENT Head: Yes normal to inspection, Yes normocephalic and Yes atraumatic Eyes General: appearance normal, both eyes and all related structures Alignment and Position: alignment normal Conjunctivae: conjunctivae normal EOM: EOMs intact bilaterally Neck Neck: Yes normal visual inspection and Yes trachea midline Resp Other: No rerpiratory distress Effort & Inspection: normal respiratory effort and able to speak in complete sentences Cardio Other: Palpable radial pulse with no appreciable rythmic abnormalities GI Other: No abdominal distension Back/Spine/Pelvis Cervical Spine: normal cervical lordosis and cervical ROM normal Skin General skin exam: no rashes or lesions noted Neuro General: oriented to person, oriented to place and gait normal Extrem Other: Wide range range of motion. Tenderness on palpation on the lateral and posterior surfaces of the left shoulder. neg H/N Neg lag neg lift off Results Reviewed Results Reviewed: XR SHOULDER, LEFT CLINICAL INFORMATION: Pain. COMPARISON: None available. TECHNIQUE: AP neutral and scapular Y views of the left shoulder are submitted. FINDINGS: Bony alignment and mineralization are normal. The glenohumeral joint is intact and shows mild osteoarthritic change. There is step-off of the acromioclavicular joint by one shaft width. The coracoclavicular interval is normal and shows coarse calcifications. 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 No acute fracture or dislocation is seen. There is no soft tissue calcification or foreign body. There is cortical irregularity and subcortical cyst formation of the greater tuberosity of the proximal left humerus. No soft tissue calcification or foreign body is seen. There is no left pneumothorax. IMPRESSION: 1. There is mild osteoarthritic change of the left glenohumeral joint. 2. 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 3. Findings suggest left rotator cuff impingement, without hiro calcific tendinitis noted. Assessment & Plan Assessment & Plan (1) S/P left rotator cuff repair: Comment: 01/28/2024 NE Code(s): Z98.890 - Other specified postprocedural states Category: Surgical (2) Chronic pain syndrome: Code(s): G89.4 - Chronic pain syndrome Category: Medical (3) Left shoulder pain: Code(s): M25.512 - Pain in left shoulder Category: Medical Plan Rotator cuff tear repair performed by Dr. Sauceda provided patient excellent mobility with all directions of shoulder motion almost nonrestricted. However patient continuous to reports severe pain in the left shoulder. Possibility of the intra-articular shoulder injection of steroids was contemplated however presence of hardware might be a contraindication for this procedure. If it is so I will schedule this patient for supraclavicular nerve block 1st to see if this procedure will help his pain. Sprint PNS versus curonix PNS could be considered after this procedure. If supraclavicular nerve block will not result in good pain relief, I will perform a left interscalene injection and after that we will consider sprint PNS versus curonix PNS. This patient has a psychiatrist (Dr. Ching Cassidy) and possibility exists that the psychiatrist will perform psychological evaluation in preparation for peripheral Nerve stimulation implants. Patient Instructions: I here by testify that I spent 45 minutes in conversation with this patient as well as evaluating his prior records and diagnostic studies as well as planning his care and organizing this note. therapeutic strategy lead Carolin Barrientos who is certified interpreter helped us to maintain this conversation in Belarusian. Coding Level of Care Code New Pt Level 4 (42070) Diagnoses S/P left rotator cuff repair Z98.890 Chronic pain syndrome G89.4 Left shoulder pain M25.512
[2024-09-16 08:01] VITALS: BP 116/77; PULSE 81; O2SAT 98; BMI 27.5
== END 2024-09-16 08:24 | disposition home or self-care (01) ==
PROVIDERS: PCP Family Medicine; Referring Provider Orthopaedic Surgery; Visit Provider Anesthesiology
DX: G89.4 Chronic pain syndrome (principal); M25.512 Pain in left shoulder; Z98.890 Other specified postprocedural states
CPT/HCPCS: 99204

== ENCOUNTER → 2024-09-16 07:48 | Outpatient (BNVA) | payer MEDICAID, SELFPAY | PROVIDERS: PCP Family Medicine; Referring Provider Orthopaedic Surgery; Visit Provider Anesthesiology | DX: M25.512 Pain in left shoulder (principal); G89.4 Chronic pain syndrome; Z98.890 Other specified postprocedural states | CPT/HCPCS: 99202 ==

== ENCOUNTER → 2024-09-21 07:44 | Outpatient (BNV) | payer MEDICAID, SELFPAY | PROVIDERS: PCP Family Medicine; Visit Provider Radiology Diagnostic Radiology | DX: M25.462 Effusion, left knee (principal) | CPT/HCPCS: 73721 ==

== ENCOUNTER 2024-09-21 07:47 | Outpatient (REF) | payer MEDICAID, SELFPAY ==
--- NOTE | ~2024-09-21 | MR_ITS ---
EXAMINATION: MRI LEFT KNEE WITHOUT CONTRAST HISTORY: M25.462 - Effusion, left knee COMPARISON: Correlation is made to plain films of the left knee dated 04/19/2024. TECHNIQUE: Coronal T1 and fat-suppressed proton density, sagittal proton density and fat-suppressed proton density, and axial fat suppressed T2 weighted MR images of the left knee were obtained. FINDINGS: The sagittal proton density images are degraded by patient motion. Bone marrow: Bone marrow signal intensity is normal. Joint effusion: There is no joint effusion. Dumont's cyst: There is no Dumont's cyst. Articular cartilage: Intact Muscles/soft tissues: The visualized muscles demonstrate normal signal intensity. There is edema of the prefemoral fat pad and Hoffa's fat pad. Anterior cruciate ligament: Intact Posterior cruciate ligament: Intact Medial collateral ligament: Intact Lateral collateral ligament: Intact Medial meniscus: Intact Lateral meniscus: Intact Flexor mechanism: The popliteus, gastrocnemius, and hamstring tendons are intact. Quadriceps tendon: Intact Patellar tendon: Intact Patellar retinacula: Intact MR/MR knee LT wo con IMPRESSION: Edema of the prefemoral fat pad and Hoffa's fat pad which can be seen in the setting of fat pad impingement syndrome. Clinical correlation is recommended. Electronically signed by: Manjeet Guzman MD 09/21/2024 10:42 AM DAVEY
--- OUTSIDE RECORDS SUMMARY | 2024-09-21 07:52 | XMS_ITS | Encounter Summary ---
Author Organization [employer] Address [address] [facility] 7t [place] [address] Care Team Providers Care Traffic Maintenance Officer Name Role Phone Jory Polk MD Primary Care Provider [phone] Reason for Visit * Reason Onset Date Comments PT-1 03/11/2024 Encounter Details Date Type Department Care Team ([facility] st Contact Info) Description 03/11/2024 Telephone [facility] MEDICINE 230 [place] [address] Jory Polk MD 505 [place] [address] PT-1 Social History Tobacco Use Types Packs/Day [...] Y/N: Yes Provider name or facility name: [facility] Facility Address: [address] [place] [address] Escort needed: Y/N: No Do you have a wheelchair: Y/N: No Visits: All future appt's Pt has a future appt on 04/01 @ 8 Patient calling requesting PT1 Home Address verified: Y/N: Yes Provider [facility] facility [facility] Address: [address] [place] [address] Escort needed: Y/N: No Do you have [...] documented as of this encounter Care Teams Traffic Maintenance Officer Relationship Specialty Start Date End Date Jory Polk MD [address] [place] [address] PCP - General Family Medicine 10/10/23 Katie Courtney [address] [place] [address] Community Health Worker 05/24/24 Yenny Shaw Cloth WinderProcessing Rep 07/16/24 documented as of this encounter
--- OUTSIDE RECORDS SUMMARY | 2024-09-21 07:52 | XMS_ITS | Encounter Summary ---
Author Organization [employer] Address [address] [facility] 7t [place] [address] Care Team Providers Care Quality Measurement Specialist Name Role Phone Jory Polk MD Primary Care Provider [phone] Reason for Visit * Reason Onset Date Comments Referral 07/26/2024 Encounter Details Date Type Department Care Team ([facility] st Contact Info) Description 07/26/2024 Telephone [facility] [address] [place], [place] [phone] Jory Polk MD 505 [place] [address] Referral Social History Tobacco Use Types Packs/Day [...] with others, in a hotel, in [place] [facility], living outside on the street, on a [...] 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
--- OUTSIDE RECORDS SUMMARY | 2024-09-21 07:52 | XMS_ITS | Encounter Summary ---
Author Organization [employer] Address 75 [facility] 7t [place] [address] Care Team Providers Care Sewer Contractor Name Role Phone Jory Polk MD Primary Care Provider [phone] Reason for Visit * Reason Onset Date Comments Pt1 10/15/2023 Encounter Details Date Type Department Care Team ([facility] st Contact Info) Description 10/15/2023 Telephone [facility] MEDICINE 230 [place] [address] Jory Polk MD 505 [place] [address] Pt1 Social History Tobacco Use Types Packs/Day [...] Y/N: Yes Provider name or facility name: [facility] Facility Address: [address] [place] [address] Escort needed: Y/N: No Do you have [...] documented as of this encounter Care Teams Sewer Contractor Relationship Specialty Start Date End Date Jory Polk MD 230 [place] [address] PCP - General Family Medicine 10/10/23 Katie Courtney [address] [place] [address] Community Health Worker 05/24/24 Yenny Shaw Foundation DirectorFisher Spear 07/16/24 documented as of this encounter
--- OUTSIDE RECORDS SUMMARY | 2024-09-21 07:52 | XMS_ITS | Encounter Summary ---
Author Organization [employer] Address 75 [facility] 7t [place] [address] Care Team Providers Care Limnologist Name Role Phone Jory Polk MD Primary Care Provider [phone] Reason for Visit * Reason Onset Date Comments Referral 06/10/2024 Encounter Details Date Type Department Care Team ([facility] st Contact Info) Description 06/10/2024 Telephone [facility] MEDICINE 230 [place] [address] Jory Polk MD 505 [place] [address] Referral Social History Tobacco Use Types Packs/Day [...] with others, in a hotel, in a detention, living outside on the street, on a [...] Y/N: Yes Provider name or facility name: [facility] Facility Address: [address] [place] [address] Escort needed: Y/N: No Do you have [...] documented as of this encounter Care Teams Limnologist Relationship Specialty Start Date End Date Jory Polk MD [address] [place] [address] PCP - General Family Medicine 10/10/23 Katie Courtney [address] [place] [address] Community Health Worker 05/24/24 Yenny Shaw Belt MolderTaxi Servicer 07/16/24 documented as of this encounter
--- OUTSIDE RECORDS SUMMARY | 2024-09-21 07:52 | XMS_ITS | Encounter Summary ---
Author Organization [employer] Address 75 [facility] 7t [place] [address] Care Team Providers Care Genetic Engineer Name Role Phone Jory Polk MD Primary Care Provider [phone] Reason for Visit * Reason Onset Date Comments PT-1 08/12/2024 Encounter Details Date Type Department Care Team ([facility] st Contact Info) Description 08/12/2024 Telephone [facility] MEDICINE 230 [place] [address] Jory Polk MD 505 [place] [address] PT-1 Social History Tobacco Use Types Packs/Day [...] with others, in a hotel, in a longterm, living outside on the street, on a [...] Y/N: Yes Provider name or facility name: [address] [place] [address] [address] [facility] [address] Escort needed: Y/N: No Do you have [...] documented as of this encounter Care Teams Genetic Engineer Relationship Specialty Start Date End Date Jory Polk MD 230 [place] [address] PCP - General Family Medicine 10/10/23 Katie Courtney [address] [place] [address] Community Health Worker 05/24/24 Yenny Shaw Shoemaking CutterTechnology Trainer 07/16/24 documented as of this encounter
--- OUTSIDE RECORDS SUMMARY | 2024-09-21 07:52 | XMS_ITS | Encounter Summary ---
Author Organization [employer] Address 75 [facility] 7t [place] [address] Care Team Providers Care Chief Digital Officer Name Role Phone Jory Polk MD Primary Care Provider [phone] Reason for Visit * Reason Onset Date Comments FYI 03/22/2024 Encounter Details Date Type Department Care Team ([facility] st Contact Info) Description 03/22/2024 Telephone [facility] MEDICINE 230 [place] [address] Jory Polk MD 505 [place] [address] FYI Social History Tobacco Use Types Packs/Day [...] any questions you can contact pt at [phone]. (Indian Speaker) documented in this encounter Plan of Treatment Not on file documented as of this encounter Visit Diagnoses Not on filedocumented in this encounter Additional Health Concerns Assessment Noted Time PHQ-9 Depression Total Score: 15 024 9:20 AM EDT documented as of this encounter Care Teams Chief Digital Officer Relationship Specialty Start Date End Date Jory Polk MD [address] [place] [address] PCP - General Family Medicine 10/10/23 Katie Courtney [address] [place] [address] Community Health Worker 05/24/24 Yenny Shaw Hand Alterations TailorLoss Prevention Operations Manager 07/16/24 documented as of this encounter
--- OUTSIDE RECORDS SUMMARY | 2024-09-21 07:52 | XMS_ITS | Encounter Summary ---
Author Organization [employer] Address 75 [facility] 7t [place] [address] Care Team Providers Care Elementary Spanish Teacher Name Role Phone Jory Polk MD Primary Care Provider [phone] Reason for Visit * Reason Onset Date Comments Call Back Request 08/10/2024 Encounter Details Date Type Department Care Team ([facility] st Contact Info) Description 08/10/2024 Telephone [facility] MEDICINE 230 [place] [address] Jory Polk MD 505 [place], [place] [phone] Call Back Request Social History Tobacco Use [...] about what was found. Contact pt at [phone] * Telephone Encounter - Stefanie James RN - 08/18/2024 10:06 AM EST TC placed to [facility] who will fax over pt most recent cardiac testing to [facility] for PCP Dr. Polk to review. Results received and sent to HIM to can into pt chart for review. * Telephone Encounter - Stefanie James RN - 08/17/2024 2:32 PM EST TC placed to pt with phone number on file [phone] by [facility] streetcar conductor [place] #[id number] but call failed and was unable to connect. TC placed X4. Will postpone until 08/18 for another attempt * Telephone Encounter - Savanna Alanis - 08/17/2024 2:22 PM EST Tc from pt requesting a call back in regards results. As pt states mathematical statistician seen something and has concerns. Callback number [phone] * Telephone Encounter - Soraya Kraftlissa Villa - 08/10/2024 1:00 PM EST Tc from pt requesting a call back in regards results. States mathematical statistician report to him saw something in results [...] documented as of this encounter Care Teams Elementary Spanish Teacher Relationship Specialty Start Date End Date Jory Polk MD [address] [place] [address] PCP - General Family Medicine 10/10/23 Katie Courtney [address] [place] [address] Community Health Worker 05/24/24 Yenny Shaw Field Research AssistantArchivist 07/16/24 documented as of this encounter
--- OUTSIDE RECORDS SUMMARY | 2024-09-21 07:52 | XMS_ITS | Encounter Summary ---
Author Organization [employer] Address 75 [facility] 7t [place] [address] Care Team Providers Care Rfid Manager Name Role Phone Jory Polk MD Primary Care Provider [phone] Reason for Visit * Reason Onset Date Comments PT1 12/23/2023 Encounter Details Date Type Department Care Team ([facility] st Contact Info) Description 12/23/[address] [facility] MEDICINE 230 [place] [address] Jory Polk MD 505 [place] [address] PT1 Social History Tobacco Use Types Packs/Day [...] Y/N: Yes Provider name or facility name: [facility] Facility Address: [address] [place] [address] Escort needed: Y/N: No Do you have [...] documented as of this encounter Care Teams Rfid Manager Relationship Specialty Start Date End Date Jory Polk MD 230 [place] [address] PCP - General Family Medicine 10/10/23 Katie Courtney [address] [place] [address] Community Health Worker 05/24/24 Yenny Shaw Apparel CutterManager Of Organizational Development 07/16/24 documented as of this encounter
--- OUTSIDE RECORDS SUMMARY | 2024-09-21 07:52 | XMS_ITS | Encounter Summary ---
Author Organization [employer] Address 75 [facility] 7t [place] [address] Care Team Providers Care Green Building Design Specialist Name Role Phone Jory Polk MD Primary Care Provider [phone] Reason for Visit * Reason Onset Date Comments PT1 03/01/2024 Encounter Details Date Type Department Care Team ([facility] st Contact Info) Description 03/01/2024 Telephone [facility] MEDICINE 230 [place] [address] Jory Polk MD 505 [place] [address] PT1 Social History Tobacco Use Types Packs/Day [...] documented as of this encounter Care Teams Green Building Design Specialist Relationship Specialty Start Date End Date Jory Polk MD 230 [place] [address] PCP - General Family Medicine 10/10/23 Katie Courtney [address] [place] [address] Community Health Worker 05/24/24 Yenny Shaw Iron CarrierQuality Assurance Advisor 07/16/24 documented as of this encounter
--- OUTSIDE RECORDS SUMMARY | 2024-09-21 07:52 | XMS_ITS | Encounter Summary ---
Author Organization [employer] Address 75 [facility] 7t [place] [address] Care Team Providers Care Svp Research & Ebusiness Operations Name Role Phone Jory Polk MD Primary Care Provider Reason for Visit * Reason Onset Date Comments PT-1 10/30/2023 Encounter Details Date Type Department Care Team ([facility] st Contact Info) Description 10/30/2023 Telephone [facility] MEDICINE 230 [place] [address] Jory Polk MD 505 [place] [address] PT-1 Social History Tobacco Use Types Packs/Day [...] Y/N: Yes Provider name or facility name: [facility] Facility Address: [address] [place] [address] Escort needed: Y/N: No Do you have a wheelchair: Y/N: No If yes- Manual or electric: Visits: 2 monthly Patient calling requesting PT1 Home Address verified: Y/N: Yes Provider name or facility name: [facility] Facility Address: [address] [place] [address] Escort needed: Y/N: No Do you have [...] documented as of this encounter Care Teams Svp Research & Ebusiness Operations Relationship Specialty Start Date End Date Jory Polk MD 230 [place] [address] PCP - General Family Medicine 10/10/23 Katie Courtney [address] [place] [address] Community Health Worker 05/24/24 Yenny Shaw Geography Faculty MemberFace Hardener 07/16/24 documented as of this encounter
--- OUTSIDE RECORDS SUMMARY | 2024-09-21 07:52 | XMS_ITS | Encounter Summary ---
Author Organization [employer] Address 75 [facility] 7t [place] [address] Care Team Providers Care Supervisor Bakery Sanitation Name Role Phone Jory Polk MD Primary Care Provider Reason for Visit * Reason Onset Date Comments PT1 12/02/2023 Encounter Details Date Type Department Care Team ([facility] st Contact Info) Description 12/02/2023 Telephone [facility] 505 [place], [place] [phone] Jory Polk MD 505 [place] [address] PT1 Social History Tobacco Use Types Packs/Day [...] with others, in a hotel, in a long term, living outside on the street, on a [...] calling in regards to PT1. States called [employer] and was advised did not receive request and provider will need to call to expedite PT1 for 12/07. * Telephone Encounter - Sammi Alanis - 12/05/2023 9:49 AM EDT PT-1 submitted for patient. They will receive a letter of approval or denial in the mail. * Telephone Encounter - Mk Taylor - 12/04/2023 11:51 AM EDT Tc from pt requesting status on PT-1, fiction and nonfiction writer prose did advise can take 24 hrs up to a week, pt stated they have a MRI scheduled for 12/08/23. Also advised can take another week for insurance approval. Pt verbalizes understanding. * Telephone Encounter - Polina Luis - 12/02/2023 12:33 PM EDT Patient calling requesting PT1 Home Address verified: Y/N: Yes Provider name or facility name: [facility] Facility Address: [address] [place] [address] Escort needed: Y/N: No Do you have [...] documented as of this encounter Care Teams Supervisor Bakery Sanitation Relationship Specialty Start Date End Date Jory Polk MD [address] [place] [address] PCP - General Family Medicine 10/10/23 Katie Courtney [address] [place] [address] Community Health Worker 05/24/24 Yenny Shaw Application Support InternFabrication Specialist 07/16/24 documented as of this encounter
--- OUTSIDE RECORDS SUMMARY | 2024-09-21 07:52 | XMS_ITS | Encounter Summary ---
Author Organization [employer] Address 75 [facility] 7t [place] [address] Care Team Providers Care Senior Insight Manager Name Role Phone Jory Polk MD Primary Care Provider [phone] Reason for Visit * Reason Onset Date Comments PT-1 04/13/2024 Encounter Details Date Type Department Care Team ([facility] st Contact Info) Description 04/13/[address] [facility] MEDICINE 230 [place] [address] Jory Polk MD [address] [place] [address] PT-1 Social History Tobacco Use Types Packs/Day [...] Y/N: Yes Provider name or facility name: [facility] Facility Address: [address] [place] [phone] Escort needed: Y/N: No Do you have [...] documented as of this encounter Care Teams Senior Insight Manager Relationship Specialty Start Date End Date Jory Polk MD 230 [place] [address] PCP - General Family Medicine 10/10/23 Katie Courtney [address] [place] [address] Community Health Worker 05/24/24 Yenny Shaw Boxing InstructorHot Roll Inspector 07/16/24 documented as of this encounter
--- OUTSIDE RECORDS SUMMARY | 2024-09-21 07:52 | XMS_ITS | Clinical Summary ---
Author Organization [employer] Address [address] [facility] 7t [place] [address] Care Team Providers Care Section Leader And Machine Setter Name Role Phone Jory Polk MD Primary Care Provider [phone] Allergies No known active allergies Medications * [...] D AL ACOSTARSE 4 Active HYDROcodone-filomena taminophen ([place]) 5-325 MG tablet TOME ALEKS TABLETA POR [...] intervention , Patient to reach out to [facility] team as needed, Patient to reach out to [facility] as needed, and Patient to call [facility] for OP and psych med management intake. We discussed that if by end of summer he has not been connected to psych medication management he will follow up with [facility] for alternative options Assessment & Plan (11/17/2023 3:53 PM EDT): New/Additional Services needed PCP management Off-site services for Behavioral Health Integration Plan Internal Follow up with [facility], Cold handoff to CHW/FP, Follow up with [facility] on 10/20/23 External Patient to reach out to [facility] for services around OP BH therapy and psych medication management Patient Self Plan Patient to utilize skills provided in intervention , Patient to reach out to [facility] team as needed, and Patient to reach out to [facility] as needed Assessment & Plan (10/11/2023 1:54 AM EDT): Hx of bipolar disorder with no current psychiatric or therapeutic care in place. Plan is to initiate the process of setting up the patient with the necessary psychiatric and medical services, with a request for services to be provided in [place]. Encounters Date Type Department Care Team Description 08/18/2024 Patient Outreach [facility] [address] [place] [address] Jory Polk MD Care Coordination (CHW outreach for SDOH PT-1 and food needs-referral completed /) 08/13/2024 Refill [facility] [address] [place] [address] Jory Polk MD 08/13/2024 Telephone [facility] [address] [place] [address] Jory Polk MD Appointment 08/12/2024 Patient Outreach [facility] [address] [place] [address] Jory Polk MD Care Coordination (CHW outreach for SDOH PT-1 and food needs-referral completed /) 08/12/2024 Telephone [facility] [address] [place] [address] Jory Polk MD PT1 08/12/2024 Telephone [facility] [address] [place] [address] Jory Polk MD PT-1 08/10/2024 Telephone [facility] [address] [place] [address] [phone] Jory Polk MD Call Back Request 08/02/2024 Telephone [facility] [address] [place] [phone] Jory Polk MD Call Back Request 07/27/2024 Telephone [facility] [address] [place] [address] [phone] Jory Polk MD echo/stress test orders 07/26/2024 10:15 AM EST Office Visit [facility] [address] [place] [address] Jory Polk MD Atypical chest pain (Primary Dx); Dysphagia, unspecified type; Chronic pain of left knee 07/26/2024 Refill [facility] [address] [place] [address] Jory Polk MD 07/26/2024 Telephone [facility] [address] [place] [address] Jory Polk MD Referral 07/26/2024 Travel 07/16/2024 Telephone [facility] [address] [place], [place] [phone] Jory Polk MD Care Coordination (ICP ) 07/07/2024 Telephone [facility] [address] [place] [address] Jory Polk MD Nurse Triage 06/21/2024 Telephone [facility] [address] [place] [address] Jory Polk MD Nurse Triage from Last 3 Months Immunizations Name Administration [...] with others, in a hotel, in a long-term, living outside on the street, on a [...] 07/26/2024 10:34 AM EST Atypical chest pain ID ARTHROCENTESIS ASPIR&/INJ MAJOR JT/BURSA W/O US Routine [...] 1 AM EST 08/20/2024 10:35 AM EST [facility] - 08/23/2024 10:29 AM EST ----- ------- Name: Raheem Cuevas ?Age/Sex: 58/M ? : 1965 Unit#: [id number] ?? Attend Dr: Inocencio Youngblood MD ?Re08/20/24 ?[place] [facility] [place] Location: HO.SSS ?Disch: ? ----- ------- SPEC : [id number] ?RECD: 08/20/24 ? STATUS: ??SOUT ? REQ NUM: [id number] ? TEJ: 08/20/24-1000 ? SUBM DR: Inocencio [...] however, may not be recoverable following processing. [facility] Copies To: ?? Inocencio Youngblood MD ?? [facility] Gastro[facility] Services ?? [address] ?? [place] [address] ?? [phone] ? CONTINUED ON NEXT PAGE ----- ------- Name: Raheem Cuevas ?Age/Sex: 58/M ? : 1965 Unit#: [id number] ?? Attend Dr: Inocencio Youngblood MD ?Re08/20/24 ?Status: [facility] ? Location: HO.SSS ?Disch: ? ----- ------- SPEC : [id number] ?RECD: 08/20/24-1034 ? STATUS: ??SOUT ? REQ NUM: [id number] ? TEJ: 08/20/24-1001 ? SUBM DR: Inocencio Youngblood MD ? ENTERED: ??08/20/24-1047 ?SP TYPE: Surgical ? OTHR DR: Jory Polk MD ? ORDERED: ??Gross Micro L4/2 ? Copies To: ??(Continued) ?? Jory Polk MD ?? [address] [facility] ?? [place] [address] ?? [phone] ----- ------- Signed (signature on file) Litzy Isael 08/23/24 1029 ? ----- ------- ? END OF REPORT ? us Generic External Data Provider LAB CYTOLOGY ORDE RABLES Final Result Performing Organization Address [facility] Co de Phone Number [facility] [address] [place] [address] [phone] * TSH W/Reflex to FT4 (08/13/2024 8:05 AM EST) Pathologist [facility] TSH reflex Free T4 1.42 0.32 - 4.0 uIU/mL [facility] Blood Venous blood specimen / Unknown 08/13/2024 8:05 AM EST 08/13/2024 2:12 PM EST us Jory Polk MD LAB BLOOD ORDERABLES Final Re sult Performing Organization Address [facility] de Phone Number [facility] [address] [place] [address] [phone] * (ABNORMAL) CBC auto differential (08/13/2024 8:05 AM EST) Pathologist [facility] White Blood Count 6.2 4.8 - 10.8 X10*3/uL [facility] Red Blood Count 5.22 4.60 - 5.80 X10*6/uL [facility] Hemoglobin 12.2(L) 14.0 - 18.0 g/dl [facility] Hematocrit 39.3(L) 42.0 - 52.0 % [facility] Mean Corpuscular Volume 75.3(L) 80.0 - 98.0 fL [facility] Mean Corpuscular Hemoglobin 23.4(L) 27.0 - 33.0 pg [facility] Mean Corpuscular HGB Conc 31.0 31.0 - 36.0 g/dl [facility] Red Cell Distribution Width 17.2(H) 11.0 - 16.0 % [facility] Platelet Count 243 160 - 400 X10*3/uL [facility] Mean Platelet Volume 11.4 9.4 - 12.4 fL [facility] Neutrophils Percent Auto 60.5 45 - 73 % [facility] Imm Gran Pct Auto 0.2 0.0 - 0.4 % [facility] Lymphocytes Percent Auto 28.5 20 - 40 % [facility] Monocytes Percent Auto 8.4 2 - 11 % [facility] Eosinophils Percent Auto 1.9 0 - 4 % [facility] Basophils Percent Auto 0.5 0 - 2 % [facility] NRBC Pct Auto 0.0 0.0 - 0.2 /100WBC [facility] Neutrophils Absolute Auto 3.8 2.0 - 8.3 x10*3/uL [facility] Imm Gran Abs Auto 0.01 0.00 - 0.03 X10*3/uL [facility] Lymphocytes Absolute Auto 1.8 1.2 - 4.9 X10*3/uL [facility] Monocytes Absolute Auto 0.5 0.1 - 1.2 X10*3/uL [facility] Eosinophils Absolute Auto 0.1 0.0 - 0.4 X10*3/uL [facility] Basophils Absolute Auto 0.0 0.0 - 0.2 X10*3/uL [facility] NRBC Abs Auto 0.000 0.0 - 0.012 X10*3/uL [facility] Blood Venous blood specimen / Unknown 08/13/2024 8:05 AM EST 08/13/2024 2:15 PM EST us Jory Polk MD LAB BLOOD ORDERABLES Final Re sult [facility] [address] [place] [phone] * (ABNORMAL) Comprehensive Metabolic Panel (08/13/2024 8:05 AM EST) Sodium 140 135 - 145 mmol/L [facility] Potassium 4.0 3.3 - 5.1 mmol/L [facility] Chloride 107 96 - 108 mmol/L [facility] Carbon Dioxide 28 22 - 29 mmol/L [facility] Anion Gap 9(L) 12 - 20 [facility] Urea Nitrogen (BUN) 11 9 - 16 mg/dL [facility] Creatinine, Serum 0.80 0.5 - 1.4 mg/dL [facility] Estimated Glomerular Filt Rate >60 [facility] Comment:Chronic Kidney Disea se: Estimated GFR < 60 mL/min/1.63d0Cwskem Kidney Disease: Estimated GFR < 15 mL/min/1.73m2 Glucose 92 60 - 115 mg/dL [facility] Calcium 9.2 8.4 - 10.2 mg/dL [facility] Bilirubin, Total 0.3 0.0 - 1.0 mg/dL [facility] Aspartate Amino Transferase 27 5 - 37 U/L [facility] Alanine Aminotransferase 28 0 - 40 U/L [facility] Total Protein 7.5 6.5 - 8.0 g/dL [facility] Albumin Level 4.4 3.5 - 5.0 g/dL [facility] Alkaline Phosphatase 103 39 - 117 U/L [facility] Blood Venous blood specimen / Unknown 08/13/2024 8:05 AM EST 08/13/2024 2:12 PM EST us Jory Polk MD LAB BLOOD ORDERABLES Final Re sult [facility] [address] [place] [address] [phone] * Transthoracic Echo (TTE) Complete (08/06/2024) us Jory Polk MD CV ECHO PROCEDURES Final Resu lt * ECG 12 lead (07/26/2024 10:34 AM EST) Narrative Jory Polk MD - 07/26/2024 10:34 AM EST HR 60 bpm Regular rhyhm Abnl R wave progression RR' III, aVL us Jory Polk MD ECG ORDERABLES Final Result * ID ARTHROCENTESIS ASPIR&/INJ MAJOR JT/BURSA W/O US (06/21/2024 9:15 AM EST) Jory Newell MD - 06/21/2024 9:15 AM EST Jory Polk MD ? 06/22/2024 ??9:49 PM Arthrocentesis Date/Time: 06/21/2024 9:15 AM Performed by: Jory Polk MD Authorized by: Jory Polk MD ?? Consent: ??Consent obtained: ??Written ??Consent given by: ??Patient ??Risks, benefits, and alternatives were discussed: yes ?Risks discussed: ??Pain, infection and bleeding ??Alternatives discussed: ??Alternative treatment [place] protocol: ??Imaging studies available: no ?Site/side marked: [...] 8:29 AM EDT) Triglycerides 66 <150 mg/dL [facility] Comment:Desirable Triglyceri de: less than 150 mg/dLBorderline High Triglyceride 150-199 mg/dLHigh Triglyceride: 200-499 mg/dLVery High Triglyceride: greater than or equal to 5OO mg/dL Cholesterol 188 <200 mg/dL [facility] Comment:Desirable Cholestero l: less than 200 mg/dLBorderline High Cholesterol: 200-239 mg/dLHigh Cholesterol: greater than 239 mg/dL LDL Cholesterol Calculated 105(H) <100 mg/dL [facility] Comment:Desirable LDL: less than 100 mg/dLNear Optimal/Above Optimal LDL: 110- 129 mg/dLBorderline High LDL: 130-159 mg/dLHigh LDL: 160-189 mg/dLVery High LDL: greater than or equal to 190 mg/dL HDL Cholesterol 70 >40 mg/dL [facility] Comment:Desirable HDL: great er than 40 mg/dL Note: This HDL assay may give artificially low results in patients with liver disease. Blood Venous blood specimen / Unknown 12/15/2023 8:29 AM EDT 12/15/2023 2:27 PM EDT Jory Polk MD LAB BLOOD ORDERABLES Final Re sult Performing Organization Address [facility] Co de Phone Number [facility] [address] [place] [phone] * Hepatitis C Antibody with Reflex to HCV, RNA, Quantitative, Real-Time PCR (12/15/2023 8:24 AM EDT) Pathologist [facility] Hepatitis C Antibody Nonreactive Nonreactive [facility] Comment:Antibodies to HCV no t detected; does not exclude early acuteHCV infection. Blood Venous blood specimen / Unknown 12/15/2023 8:24 AM EDT 12/15/2023 2:27 PM EDT Jory Polk MD LAB BLOOD ORDERABLES Final Re sult Performing Organization Address [facility] Co de Phone Number [facility] [address] [place] [phone] * HIV-1/2 Antigen and Antibodies, Fourth Generation, with Reflexes (12/15/2023 8:24 AM EDT) HIV AB/AG Nonreactive Nonreactive [facility] Comment:HIV-1 p24 Ag and/or HIV-1/HIV-2 Ab not detected.A test result that is nonreactive does not exclude thepossibility of exposure to or infection with HIV-1 and/orHIV-2. Nonreactive results in this assay for individualswith prior exposure to HIV-1 and/or HIV-2 may be due toantigen and antibody levels that are below the limit ofdetection of this assay.The GENBAND HIV Ag/Ab Combo assay result andsupplemental assay results should be interpreted inconjunction with the patient's clinical presentation,history and other laboratory results. If the results areinconsistent with clinical evidence, additional testing issuggested to confirm the result. Blood Venous blood specimen / Unknown 12/15/2023 8:24 AM EDT 12/15/2023 2:27 PM EDT us Jory Polk MD LAB BLOOD ORDERABLES Final Re sult [facility] [address] [place] [address] [phone] from Last 3 Months or Most Recently Relevant to Health Maintenance [place] [address] [place] [address] C3 Care Teams Section Leader And Machine Setter Relationship Specialty Start Date End Date Jory Polk MD [address] [place] [address] PCP - General Family Medicine 10/10/23 Katie Courtney [address] [place] [address] Community Health Worker 05/24/24 Yenny Shaw Retail AideMath Instructor 07/16/24
--- OUTSIDE RECORDS SUMMARY | 2024-09-21 07:52 | XMS_ITS | Encounter Summary ---
Author Organization [employer] Address [address] [facility] 7t [place] [address] Care Team Providers Care Aba Therapist Name Role Phone Jory Polk MD Primary Care Provider [phone] Reason for Visit * Reason Onset Date Comments PT1 08/12/2024 Encounter Details Date Type Department Care Team ([facility] st Contact Info) Description 08/12/2024 Telephone [facility] [address] [place] [address] Jory Polk MD [address] [place] [address] PT1 Social History Tobacco Use Types Packs/Day [...] Y/N: Yes Provider name or facility name: [address] [place] [address] [place] [address] Escort needed: Y/N: Yes Do you have [...] documented as of this encounter Care Teams Aba Therapist Relationship Specialty Start Date End Date Jory Polk MD [address] [place], [place] [address] [address] PCP - General Family Medicine 10/10/23 Katie Courtney [address] [place] [phone] Community Health Worker 05/24/24 Yenny Shaw Chief Catalyst OperatorPredictive Maintenance Specialist 07/16/24 documented as of this encounter
--- OUTSIDE RECORDS SUMMARY | 2024-09-21 07:53 | XMS_ITS | Encounter Summary ---
Author Organization [employer] Address 75 [facility] 7t [place] [address] Care Team Providers Care Cnc Programmer Name Role Phone Jory Polk MD Primary Care Provider [phone] Reason for Visit * Reason Onset Date Comments PT-1 02/10/2024 Encounter Details Date Type Department Care Team ([facility] st Contact Info) Description 02/10/2024 Telephone [facility] [address] [place] [address] Jory Polk MD [address] [place] [address] PT-1 Social History Tobacco Use Types Packs/Day [...] Y/N: Yes Provider name or facility name: [facility] Facility Address: [address] [place] [address] Escort needed: Y/N: No Do you have [...] documented as of this encounter Care Teams Cnc Programmer Relationship Specialty Start Date End Date Jory Polk MD [address] [place] [address] PCP - General Family Medicine 10/10/23 Katie Courtney [address] [place] [phone] Community Health Worker 05/24/24 Yenny Shaw Furniture Assembly SupervisorElectrical Engineer 07/16/24 documented as of this encounter
--- OUTSIDE RECORDS SUMMARY | 2024-09-21 07:53 | XMS_ITS | Encounter Summary ---
Author Organization [employer] Address [address] [facility] 7t [place] [address] Care Team Providers Care Breakfast Attendant Name Role Phone Jory Polk MD Primary Care Provider [phone] Reason for Visit * Reason Onset Date Comments PT-1 12/30/2023 Encounter Details Date Type Department Care Team ([facility] st Contact Info) Description 12/30/2023 Telephone [facility] [address] [place] [address] Jory Polk MD [address] [place] [address] PT-1 Social History Tobacco Use Types Packs/Day [...] Y/N: Yes Provider name or facility name: [facility] Facility Address: [address] [place] [address] [address] [place] [address] Escort needed: Y/N: No Do you have [...] documented as of this encounter Care Teams Breakfast Attendant Relationship Specialty Start Date End Date Jory Polk MD [address] [facility] [place] [address] PCP - General Family Medicine 10/10/23 Katie Courtney [address] [place] [phone] Community Health Worker 05/24/24 Yenny Shaw Senior Web Applications DeveloperPaper Carrier 07/16/24 documented as of this encounter
--- OUTSIDE RECORDS SUMMARY | 2024-09-21 07:53 | XMS_ITS | Encounter Summary ---
Author Organization [employer] Address [address] [facility] 7t [place] [address] Care Team Providers Care Flatwork Supervisor Name Role Phone Jory Polk MD Primary Care Provider [phone] Reason for Visit * Reason Onset Date Comments New Patient 05/28/2023 Encounter Details Date Type Department Care Team (Late st Contact Info) Description 05/28/2023 Telephone [facility] [address] [place] [address] Baldomero Varela MD [address] [place] [address] New Patient Social History Tobacco Use Types [...] been transfer over to wait list for [facility]. EFFECTIVE SINCE 05/28/2023 documented in this encounter Plan of Treatment Not on file documented as of this encounter Visit Diagnoses Not on filedocumented in this encounter Care Teams Flatwork Supervisor Relationship Specialty Start Date End Date Jory Polk MD [address] [place] [phone] PCP - General Family Medicine 10/10/23 Katie Courtney [address] [place] [address] Community Health Worker 05/24/24 Yenny Shaw Rand ButterTable Setter 07/16/24 documented as of this encounter
== END 2024-09-21 07:48 | disposition home or self-care (01) ==
LOC: HO.MRI 07:47
PROVIDERS: PCP Family Medicine; Visit Provider Orthopaedic Surgery
DX: M25.462 Effusion, left knee (principal)
CPT/HCPCS: 73721

== ENCOUNTER 2024-10-14 08:56 | Outpatient (REF) | payer MEDICAID, SELFPAY ==
--- NOTE | ~2024-10-14 | FL_ITS ---
EXAMINATION: XR BARIUM SWALLOW CLINICAL INFORMATION: Dysphagia COMPARISON: None available. TECHNIQUE: Thick barium and saltine crackers coated barium was administered orally in the upright view. Thin barium was administered orally and prone lying position. FINDINGS: Bilateral administration of thick barium in upright view there is normal propagation bolus from the oral cavity through the pharynx, esophagus and the stomach without any evidence of obstruction, narrowing or stricture. No laryngeal penetration or aspiration seen. On administration of barium coated solids there is slight delay in the oral phase. On bolus reaching the posterior pharynx there is slow propagation through the esophagus with mild retention of solid food in the mid to distal esophagus. On placing patient in supine and prone lying and oral administration of thin barium there is good distention of esophagus. No extrinsic compression seen. The mucosal pattern of the esophagus, stomach, duodenal bulb and the CBD is normal. There is a small hiatal hernia with mild gastroesophageal reflux. Otherwise rest of the caliber and peristalsis of stomach and duodenum is normal. FLUOROSCOPY TIME: 1 minute 50 seconds DOSE AREA PRODUCT: 91.8 uGy-m2 (microgray-meter squared) FL/FL barium swallow IMPRESSION: Small hiatal hernia with mild gastroesophageal reflux. Electronically signed by: Mario Tello MD 10/14/2024 03:04 PM EDT RP
== END 2024-10-14 08:57 | disposition home or self-care (01) ==
LOC: HO.XRAY 08:56
PROVIDERS: PCP Family Medicine; Visit Provider Family Medicine
DX: R13.10 Dysphagia, unspecified (principal)
CPT/HCPCS: 74220

== ENCOUNTER → 2024-10-14 08:59 | Outpatient (BNV) | payer MEDICAID, SELFPAY | PROVIDERS: PCP Family Medicine; Visit Provider Radiology Diagnostic Radiology | DX: R13.10 Dysphagia, unspecified (principal) | CPT/HCPCS: 74220 ==

== ENCOUNTER 2024-11-04 07:57 | Outpatient (AMB) | payer MEDICAID, SELFPAY ==
--- OUTSIDE RECORDS SUMMARY | 2024-11-04 08:00 | XMS_ITS | Encounter Summary ---
Author Organization [employer] Address [address] [facility] 7t [place] [address] Care Team Providers Care J2Ee Engineer Name Role Phone Jory Polk MD Primary Care Provider [phone] Reason for Visit * Reason Onset Date Comments Referral 07/26/2024 Encounter Details Date Type Department Care Team ([facility] st Contact Info) Description 07/26/2024 Telephone [facility] [address] [place], [place] [phone] Jory Polk MD [address] [place] [address] Referral Social History Tobacco Use Types Packs/Day [...] with others, in a hotel, in a intermediate, living outside on the street, on a [...] from 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
--- OUTSIDE RECORDS SUMMARY | 2024-11-04 08:00 | XMS_ITS | Encounter Summary ---
Author Organization [employer] Address 75 [facility] 7t [place] [address] Care Team Providers Care Plating Tank Operator Name Role Phone Jory Polk MD Primary Care Provider [phone] Reason for Visit * Reason Onset Date Comments PT-1 08/12/2024 Encounter Details Date Type Department Care Team ([facility] st Contact Info) Description 08/12/2024 Telephone [facility] [address] [place] [address] Jory Polk MD [address] [place] [address] PT-1 Social History Tobacco Use Types Packs/Day [...] Y/N: Yes Provider name or facility name: [address] [place] [address] Dr Page [facility] [address] Escort needed: Y/N: No Do you have [...] documented as of this encounter Care Teams Plating Tank Operator Relationship Specialty Start Date End Date Jory Polk MD [address] [place] [address] PCP - General Family Medicine 10/10/23 Katie Courtney [address] [place] [address] Community Health Worker 05/24/24 Yenny Shaw Teleprinter InstallerSupervisor Ski Production 07/16/24 documented as of this encounter
--- OUTSIDE RECORDS SUMMARY | 2024-11-04 08:00 | XMS_ITS | Encounter Summary ---
Author Organization [employer] Address [address] [facility] 7t [place] [address] Care Team Providers Care Director It Project Name Role Phone Jory Polk MD Primary Care Provider [phone] Reason for Visit * Reason Onset Date Comments PT1 08/12/2024 Encounter Details Date Type Department Care Team ([facility] st Contact Info) Description 08/12/2024 Telephone [facility] MED[facility] [address] [place] [address] Jory Polk MD [address] [place] [address] PT1 Social History Tobacco Use Types Packs/Day [...] Y/N: Yes Provider name or facility name: [address] [place] [address] [place] [address] Escort needed: Y/N: Yes Do you have [...] documented as of this encounter Care Teams Director It Project Relationship Specialty Start Date End Date Jory Polk MD [address] [place], [place] [address] [address] PCP - General Family Medicine 10/10/23 Katie Courtney [address] [place] [phone] Community Health Worker 05/24/24 Yenny Shaw Service ManagerVotator Machine Operator 07/16/24 documented as of this encounter
--- OUTSIDE RECORDS SUMMARY | 2024-11-04 08:00 | XMS_ITS | Encounter Summary ---
Author Organization [employer] Address [address] [facility] 7t [place] [address] Care Team Providers Care Workplace Rehabilitation Officer Name Role Phone Jory Polk MD Primary Care Provider [phone] Reason for Visit * Reason Onset Date Comments PT-1 04/13/2024 Encounter Details Date Type Department Care Team ([facility] st Contact Info) Description 04/13/2024 Telephone [facility]INE [address] [place] [address] Jory Polk MD [address] [place] [address] PT-1 Social History Tobacco Use Types Packs/Day [...] Y/N: Yes Provider name or facility name: [facility] Facility Address: [address] [place] [id number] Escort needed: Y/N: No Do you have [...] documented as of this encounter Care Teams Workplace Rehabilitation Officer Relationship Specialty Start Date End Date Jory Polk MD [address] [place] [address] PCP - General Family Medicine 10/10/23 Katie Courtney [address] [place] [address] Community Health Worker 05/24/24 Yenny Shaw Multicultural ManagerCommunity Recreation Coordinator 07/16/24 documented as of this encounter
--- OUTSIDE RECORDS SUMMARY | 2024-11-04 08:01 | XMS_ITS | Encounter Summary ---
Author Organization [employer] Address [address] [facility] 7t [place] [address] Care Team Providers Care Manager Audio Name Role Phone Jory Polk MD Primary Care Provider [phone] Reason for Visit * Reason Onset Date Comments PT1 03/01/2024 Encounter Details Date Type Department Care Team ([facility] st Contact Info) Description 03/01/2024 Telephone [facility] MEDICINE [address] [place] [address] Jory Polk MD [address] [place] [address] PT1 Social History Tobacco Use Types Packs/Day [...] documented as of this encounter Care Teams Manager Audio Relationship Specialty Start Date End Date Jory Polk MD [address] [place] [address] PCP - General Family Medicine 10/10/23 Katie Courtney [address] [place] [address] Community Health Worker 05/24/24 Yenny Shaw It Systems EngineerSupervisor Engine Repair 07/16/24 documented as of this encounter
--- OUTSIDE RECORDS SUMMARY | 2024-11-04 08:01 | XMS_ITS | Encounter Summary ---
Author Organization [employer] Address [address] [facility] 7t [place] [address] Care Team Providers Care Exceptional Needs Teacher Name Role Phone Jory Polk MD Primary Care Provider [phone] Reason for Visit * Reason Onset Date Comments PT-1 10/30/2023 Encounter Details Date Type Department Care Team ([facility] st Contact Info) Description 10/30/2023 Telephone [facility]INE [address] [place] [address] Jory Polk MD [address] [place] [address] PT-1 Social History Tobacco Use Types Packs/Day [...] with others, in a hotel, in a prison, living outside on the street, on a [...] Y/N: Yes Provider name or facility name: [facility] Facility Address: [address] [place] [address] Escort needed: Y/N: No Do you have a wheelchair: Y/N: No If yes- Manual or electric: Visits: 2 monthly Patient calling requesting PT1 Home Address verified: Y/N: Yes Provider name or facility name: [facility] [place] Facility Address: [address] [place] [address] Escort needed: Y/N: No Do you have [...] documented as of this encounter Care Teams Exceptional Needs Teacher Relationship Specialty Start Date End Date Jory Polk MD [address] [place] [address] PCP - General Family Medicine 10/10/23 Katie Courtney [address] [place] [address] Community Health Worker 05/24/24 Yenny Shaw Oliver Filter OperatorBone Drier 07/16/24 documented as of this encounter
--- OUTSIDE RECORDS SUMMARY | 2024-11-04 08:01 | XMS_ITS | Encounter Summary ---
Author Organization [employer] Address [address] [facility] 7t [place] [address] Care Team Providers Care Employee Benefits Attorney Name Role Phone Jory Polk MD Primary Care Provider [phone] Reason for Visit * Reason Onset Date Comments Pt1 10/15/2023 Encounter Details Date Type Department Care Team ([facility] st Contact Info) Description 10/15/[address] [facility] MEDICINE [address] [place] [address] Jory Polk MD [address] [place] [address] Pt1 Social History Tobacco Use Types Packs/Day [...] Yes Provider name or facility name: [facility] Facility Address: [address] [place] [address] Escort needed: Y/N: No Do you have [...] documented as of this encounter Care Teams Employee Benefits Attorney Relationship Specialty Start Date End Date Jory Polk MD [address] [place] [address] PCP - General Family Medicine 10/10/23 Katie Courtney [address] [place] [phone] Community Health Worker 05/24/24 Yenny Shaw Multiple Drill OperatorDirect Marketing Manager 07/16/24 documented as of this encounter
--- OUTSIDE RECORDS SUMMARY | 2024-11-04 08:01 | XMS_ITS | Encounter Summary ---
Author Organization [employer] Address [address] [facility] 7t [place] [address] Care Team Providers Care Clinical Resource Nurse Name Role Phone Jory Polk MD Primary Care Provider [phone] Reason for Visit * Reason Onset Date Comments FYI 03/22/2024 Encounter Details Date Type Department Care Team ([facility] st Contact Info) Description 03/22/2024 Telephone [facility] MEDICINE [address] [place] [address] Jory Polk MD [address] [place] [address] FYI Social History Tobacco Use Types Packs/Day [...] any questions you can contact pt at [phone]. (Burundian Speaker) documented in this encounter Plan of Treatment Not on file documented as of this encounter Visit Diagnoses Not on filedocumented in this encounter Additional Health Concerns Assessment Noted Time PHQ-9 Depression Total Score: 15 024 9:20 AM EDT documented as of this encounter Care Teams Clinical Resource Nurse Relationship Specialty Start Date End Date Jory Polk MD [address] [place] [address] PCP - General Family Medicine 10/10/23 Katie Courtney [address] [place] [phone] Community Health Worker 05/24/24 Yenny Shaw Curb AttendantEdi Consultant 07/16/24 documented as of this encounter
--- OUTSIDE RECORDS SUMMARY | 2024-11-04 08:01 | XMS_ITS | Clinical Summary ---
Author Organization [facility] Address [address] [facility] 7[address] [place] [address] Care Team Providers Care Alfalfa Dehydrator Operator Name Role Phone Jory Polk MD Primary Care Provider Allergies No known active allergies Medications * This document contains information received from the source organization and may not represent a complete record from that organization. albuterol 108 (90 Base) MCG/ACT inhaler Inhale 2 puffs every 4 (four) hours if needed for wheezing. 18 g 10/10/19 24 Active hydrOXYzine HCl (Atarax) 50 MG tabletIndicati [...] AL ACOSTARSE 04/15/20 24 Active HYDROcodone-ac etaminophen (Dryden) 5-325 MG tablet TOME ALEKS TABLETA POR V A ORAL CADA CUATRO A SEIS HORAS CUANDO SEA NECESARIO PARA EL DOLOR 05/13/20 24 Active acetaminophen (Tylenol Extra Strength) 500 MG tablet Take 2 tablets (1,000 mg) by mouth every 8 (eight) hours if needed for mild pain. 60 tablet 05/24/20 24 Active PARoxetine (Paxil) 20 MG tablet TOME 1 TABLETA POR V A ORAL TODOS LOS D 06/10/20 24 Active amLODIPine (Norvasc) 10 MG tablet TAKE 1 TABLET (10 MG) BY MOUTH ONCE PER DAY. 90 tablet 1 08/13/19 25 Active diclofenac (Cataflam) 50 MG tablet TOME 1 TABLETA POR VIA ORAL JEANETH VECES AL VIGNESH 90 tablet 09/28/19 25 Active omeprazole (PriLOSEC) [address] capsule TAKE 1 CAPSULE BY MOUTH BEFORE BREAKFAST. 90 capsule 10/16/19 25 Active omeprazole OTC (PriLOSEC OTC) 20 MG EC tablet Take 1 tablet (20 mg) by mouth before breakfast. Do not crush, chew, or split. 30 tablet 3 10/15/19 25 025 Discontinued Active Problems Problem Noted Date [...] intervention , Patient to reach out to [facility] team as needed, Patient to reach out to [facility] as needed, and Patient to call [facility] for OP and psych med management intake. We discussed that if by end of summer he has not been connected to psych medication management he will follow up with [facility] for alternative options Assessment & Plan (11/17/2023 3:53 PM EDT): New/Additional Services needed PCP management Off-site services for Behavioral Health Integration Plan Internal Follow up with [facility], Cold handoff to CH[facility]/FP, Follow up with [facility] on 10/20/23 External Patient to reach out to [facility] for services around OP BH therapy and psych medication management Patient Self Plan Patient to utilize skills provided in intervention , Patient to reach out to [facility] team as needed, and Patient to reach out to [facility] as needed Assessment & Plan (10/11/2023 1:54 AM EDT): Hx of bipolar disorder with no current psychiatric or therapeutic care in place. Plan is to initiate the process of setting up the patient with the necessary psychiatric and medical services, with a request for services to be provided in Pashto. Encounters Date Type Department Care Team Description 10/22/2024 Telephone [facility] [address] [place] [address] Jory Polk MD Results 10/14/2024 Refill [facility] [address] [place] [address] Eve Cooper DO 10/14/2024 Telephone [facility] [address] [place] [phone] Eve Cooepr DO Results 10/08/2024 Population Health Risk [facility] Department [address] [facility] [address] [place] [address] Provider, Population Health Generic 09/27/2024 Refill [facility] [address] [place] [address] Jory Polk MD 09/21/2024 Orders Only [facility] External Provider, [facility] 08/18/2024 Patient Outreach [facility] [address] [place] [address] Jory Polk MD Care Coordination (CH[facility] outreach for SDOH PT-1 and food needs-referral completed /) 08/13/2024 Refill [facility] [address] [place] [address] Jory Polk MD 08/13/2024 Telephone [facility] [address] [place] [address] Jory Polk MD Appointment 08/12/2024 Patient Outreach [facility] [address] [place] [address] Jory Polk MD Care Coordination ([facility] outreach for SDOH PT-1 and food needs-referral completed /) 08/12/[address] [address] Jory Polk MD PT1 08/12/[address] [phone] Jory Polk MD PT-1 08/10/[address] [phone] Jory Polk MD Call Back Request from Last 3 Months Immunizations Name Administration [...] 12/10/2018 SDOH Screening 11/02/2024 11/03/2023 Depression Monitoring 11/22/2024 05/24/2024 , 05/24/2024 Alcohol/Substance Use Screening 05/24/2025 05/24/2024 Depression [...] Procedure Name Priority Date/Time Associated Diagnosis Comments FL ESOPHAGUS BARIUM SWALLOW Routine 10/14/2024 8:59 AM EDT Dysphagia, unspecified type MR NEWBERRY WO CONTRAST LEFT Routine 09/21/2024 8:00 AM EST GROSS AND MICROSCOPIC LEVEL 4 Routine 08/20/2024 10:01 AM EST TSH W/REFLEX TO FT4 Routine 08/13/2024 8 :05 AM EST Atypical chest pain COMPREHENSIVE METABOLIC PANEL Routine 08/13/2024 8:05 AM EST Atypical chest pain CBC WITH AUTO DIFFERENTIAL Routine 08/13/2024 8:05 AM EST Atypical chest pain TRANSTHORACIC ECHO (TTE) COMPLETE Routine 08/06/2024 Atypical chest pain LIPID PANEL, STANDARD Routine 12/15/2023 8:29 AM EDT Elevated blood pressure reading HEPATITIS C AB W/REFL TO HCV RNA, QN, PCR Routine 12/15/2023 8:24 AM EDT Encounter for health-related screening HIV 1/2 ANTIGEN/ANTIBODY, FOURTH GENERATION W/RFL Routine 12/15/2023 8:24 AM EDT Encounter for health-related screening from Last 3 Months or Most Recently Relevant to Health Maintenance Results * FL Esophagus Barium Swallow (10/14/2024 8:59 AM EDT) Anatomical Region Laterality Modality Head, Neck Radiographic Kelly ging 10/14/2024 8:59 AM EDT Narrative 10/14/2024 3:07 PM EDT ? [facility] ?[address] ?[place] [address] ? Fluoroscopy Report ? Signed ? Patient: Raheem Cuevas ?MR#: ?? [id number] ? : 1965 ?Acct:[id number] ? Age/Sex: 58 / M ?ADM Date: 10/14/24 ? Loc: HO.XRAY ? Attending Dr: Jory Polk MD ? Ordering Physician: Jory Polk MD ?? Date of Service: 10/14/24 ?? Procedure(s): FL barium swallow ?? Accession Number(s): [id number] ? cc: Jory Polk MD ? EXAMINATION: ?? XR BARIUM SWALLOW ? CLINICAL INFORMATION: ?? Dysphagia ? COMPARISON: ?? None available. ? TECHNIQUE: ?? Thick barium and saltine crackers coated barium was administered orally ?? in the upright view. Thin barium was administered orally and prone ?? lying position. ? FINDINGS: ?? Bilateral administration of thick barium in upright view there is ?? normal propagation bolus from the oral cavity through the pharynx, ?? esophagus and the stomach without any evidence of obstruction, ?? narrowing or stricture. No laryngeal penetration or aspiration seen. On ?? administration of barium coated solids there is slight delay in the ?? oral phase. On bolus reaching the posterior pharynx there is slow ?? propagation through the esophagus with mild retention of solid food in ?? the mid to distal esophagus. ? On placing patient in supine and prone lying and oral administration of ?? thin barium there is good distention of esophagus. No extrinsic ?? compression seen. ??The mucosal pattern of the esophagus, stomach, ?? duodenal bulb and the CBD is normal. There is a small hiatal hernia ?? with mild gastroesophageal reflux. Otherwise rest of the caliber and ?? peristalsis of stomach and duodenum is normal. ? FLUOROSCOPY TIME: ?? 1 minute 50 seconds ? DOSE AREA PRODUCT: ?? 91.8 uGy-m2 (microgray-meter squared) ? FL/FL barium swallow ?? IMPRESSION: ?? Small hiatal hernia with mild gastroesophageal reflux. ? Electronically signed by: ??Mario Tello MD ??10/14/2024 03:04 PM EDT RP ? Dictated By: ?Mario Tello MD ? Signed By: ?<Electronically signed by Mario Tello MD in OV> ?10/14/24 1504 ? DD/ 0859 ? TD/TT: 10/14/24 0945 ? Press Box Custodian: MSM ? Procedure Note Abimael, Jason - 10/14/[address] [address] Fluoroscopy Report Signed Patient: Gerardo Cuevas#: [id number] : 1965Acct:[id number] Age/Sex: 58 / MADM Date: 10/14/24 Loc: HO.XRAY Attending Dr: Jory Polk MD Ordering Physician: Jory Polk MD Date of Service: 10/14/24 Procedure(s): FL barium swallow Accession Number(s): [id number] cc: Jory Polk MD EXAMINATION: XR BARIUM SWALLOW CLINICAL INFORMATION: Dysphagia COMPARISON: None available. TECHNIQUE: Thick barium and saltine crackers coated barium was administered orally in the upright view. Thin barium was administered orally and prone lying position. FINDINGS: Bilateral administration of thick barium in upright view there is normal propagation bolus from the oral cavity through the pharynx, esophagus and the stomach without any evidence of obstruction, narrowing or stricture. No laryngeal penetration or aspiration seen. On administration of barium coated solids there is slight delay in the oral phase. On bolus reaching the posterior pharynx there is slow propagation through the esophagus with mild retention of solid food in the mid to distal esophagus. On placing patient in supine and prone lying and oral administration of thin barium there is good distention of esophagus. No extrinsic compression seen. The mucosal pattern of the esophagus, stomach, duodenal bulb and the CBD is normal. There is a small hiatal hernia with mild gastroesophageal reflux. Otherwise rest of the caliber and peristalsis of stomach and duodenum is normal. FLUOROSCOPY TIME: 1 minute 50 seconds DOSE AREA PRODUCT: 91.8 uGy-m2 (microgray-meter squared) FL/FL barium swallow IMPRESSION: Small hiatal hernia with mild gastroesophageal reflux. Electronically signed by: Mario Tello MD 10/14/2024 03:04 PM EDT Dictated By: Mario Tello MD Signed By: <Electronically signed by Mario Tello MD in OV> 10/14/24 1504 DD/ 0859 TD/TT: 10/14/24 0945 Press Box Custodian: GAUTAM us Jory Polk MD IMG FLUOROSCOPY PROCEDURES Fi nal Result * MR Knee w/o Contrast Left (09/21/2024 8:00 AM EST) Anatomical Region Laterality Modality Magnetic Resonan ce 09/21/2024 8:00 AM EST Narrative 09/21/2024 10:44 AM EST ? [facility] ?[address] ?[place] [address] ? Magnetic Resonance Report ? Signed ? Patient: Kip HaynesRaheem ?MR#: ?? [id number] ? : 1965 ?Acct:[id number] ? Age/Sex: 58 / M ?ADM Date: //25 ? Loc: HO.MRI ? Attending Dr: Anton Sauceda MD ? Ordering Physician: Anton Sauceda MD ?? Date of Service: 09/21/24 ?? Procedure(s): MR knee LT wo con ?? Accession Number(s): [id number] ? cc: Anton Sauceda MD; Jory Polk MD ? EXAMINATION: MRI LEFT KNEE WITHOUT CONTRAST ? HISTORY: M25.462 - Effusion, left knee ? COMPARISON: Correlation is made to plain films of the left knee dated ?? 04/19/2024. ? TECHNIQUE: ??Coronal T1 and fat-suppressed proton density, sagittal ?? proton density and fat-suppressed proton density, and axial fat ?? suppressed T2 weighted MR images of the left knee were obtained. ? FINDINGS: The sagittal proton density images are degraded by patient ?? motion. ? Bone marrow: Bone marrow signal intensity is normal. ? Joint effusion: There is no joint effusion. ? Dumont's cyst: There is no Dumont's cyst. ? Articular cartilage: Intact ? Muscles/soft tissues: The visualized muscles demonstrate normal signal ?? intensity. There is edema of the prefemoral fat pad and Hoffa's fat pad. ? Anterior cruciate ligament: Intact ? Posterior cruciate ligament: Intact ? Medial collateral ligament: Intact ? Lateral collateral ligament: Intact ? Medial meniscus: Intact ? Lateral meniscus: Intact ? Flexor mechanism: The popliteus, gastrocnemius, and hamstring tendons ?? are intact. ? Quadriceps tendon: Intact ? Patellar tendon: Intact ? Patellar retinacula: Intact ? MR/MR knee LT wo con ?? IMPRESSION: ?? Edema of the prefemoral fat pad and Hoffa's fat pad which can be seen ?? in the setting of fat pad impingement syndrome. Clinical correlation is ?? recommended. ? Electronically signed by: ??Manjeet Guzman MD ??09/21/2024 10:42 AM EST ?? RP ? Dictated By: ?Manjeet Guzman MD ? Signed By: ?<Electronically signed by Manjeet Guzman MD in OV> ?09/21/24 1042 ? DD/ 0800 ? TD/TT: 09/21/24 0810 ? Press Box Custodian: ? Procedure Note Jason Varghese - 09/21/2024 [address] [place] [address] Magnetic Resonance Report Signed Patient: Gerardo Cuevas#: [id number] : 1965Acct:[id number] Age/Sex: 58 / MADM Date: 09/21/24 Loc: HO.MRI Attending Dr: Anton Sauceda MD Ordering Physician: Anton Sauceda MD Date of Service: 09/21/24 Procedure(s): MR knee LT wo con Accession Number(s): [id number] cc: Anton Sauceda MD; Jory Polk MD EXAMINATION: MRI LEFT KNEE WITHOUT CONTRAST HISTORY: M25.462 - Effusion, left knee COMPARISON: Correlation is made to plain films of the left knee dated 04/19/2024. TECHNIQUE: Coronal T1 and fat-suppressed proton density, sagittal proton density and fat-suppressed proton density, and axial fat suppressed T2 weighted MR images of the left knee were obtained. FINDINGS: The sagittal proton density images are degraded by patient motion. Bone marrow: Bone marrow signal intensity is normal. Joint effusion: There is no joint effusion. Dumont's cyst: There is no Dumont's cyst. Articular cartilage: Intact Muscles/soft tissues: The visualized muscles demonstrate normal signal intensity. There is edema of the prefemoral fat pad and Hoffa's fat pad. Anterior cruciate ligament: Intact Posterior cruciate ligament: Intact Medial collateral ligament: Intact Lateral collateral ligament: Intact Medial meniscus: Intact Lateral meniscus: Intact Flexor mechanism: The popliteus, gastrocnemius, and hamstring tendons are intact. Quadriceps tendon: Intact Patellar tendon: Intact Patellar retinacula: Intact MR/MR knee LT wo con IMPRESSION: Edema of the prefemoral fat pad and Hoffa's fat pad which can be seen in the setting of fat pad impingement syndrome. Clinical correlation is recommended. Electronically signed by: Manjeet Guzman MD 09/21/2024 10:42 AM [facility] Dictated By: Manjeet Guzman MD Signed By: <Electronically signed by Manjeet Guzman MD in OV> 09/21/24 1042 DD/ 0800 TD/TT: 09/21/24 0810 Press Box Custodian: [facility] External Provider IMG MRI PROCEDURES Final Result * Gross and Microscopic Level 4 (08/20/2024 10:01 AM EST) 08/20/2024 10:0 1 AM EST 08/20/2024 10:35 AM EST Narrative [facility] - 08/23/2024 10:29 AM EST ----- ------- Name: Raheem Cuevas ?Age/Sex: 58/M ? : 1965 Unit#: [id number] ?? Attend Dr: Inocencio Youngblood MD ?Re08/20/24 ?Status: DEP SDC ? Location: HO.SSS ?Disch: ? ----- ------- SPEC : [id number] ?RECD: 08/20/24-1034 ? STATUS: ??SOUT ? REQ NUM: [id number] ? TEJ: 08/20/24-1001 ? SUBM DR: Inocencio [...] however, may not be recoverable following processing. [facility] Copies To: ?? Inocencio Youngblood MD ?? [facility] ?? [address] ?? [place] Page [address] ?? [phone] ? CONTINUED ON NEXT PAGE ----- ------- Name: Raheem Cuevas ?Age/Sex: 58/M ? : 1965 Unit#: [id number] ?? Attend Dr: Inocencio Youngblood MD ?Re08/20/24 ?Status: DEP SDC ? Location: HO.SSS ?Disch: ? ----- ------- SPEC : [id number] ?RECD: 08/20/24-1034 ? STATUS: ??SOUT ? REQ NUM: [id number] ? TEJ: 08/20/24-1000 ? SUBM DR: Inocencio Youngblood MD ? ENTERED: ??08/20/24-1047 ?SP TYPE: Surgical ? OTHR DR: Jory Polk MD ? ORDERED: ??Gross Micro L4/2 ? Copies To: ??(Continued) ?? Jory Polk MD ?? [address] ?? [place] [address] ?? [phone] ----- ------- Signed (signature on file) Litzy Isael 08/23/24 1029 ? ----- ------- ? END OF REPORT ? us Generic External Data Provider LAB CYTOLOGY SCOTTIE MCNEAL Final Result [facility] [address] [place] [address] [phone] * TSH W/Reflex to FT4 (08/13/2024 8:05 AM EST) TSH reflex Free T4 1.42 0.32 - 4.0 uIU/mL [facility] Blood Venous blood specimen / Unknown 08/13/2024 8:05 AM EST 08/13/2024 2:12 PM EST us Jory Polk MD LAB BLOOD ORDERABLES Final Re sult [facility] [address] [place] [address] [phone] * (ABNORMAL) CBC auto differential (08/13/2024 8:05 AM EST) White Blood Count 6.2 4.8 - 10.8 X10*3/uL [facility] Red Blood Count 5.22 4.60 - 5.80 X10*6/uL [facility] Hemoglobin 12.2(L) 14.0 - 18.0 g/dl [facility] Hematocrit 39.3(L) 42.0 - 52.0 % [facility] Mean Corpuscular Volume 75.3(L) 80.0 - 98.0 fL [facility] Mean Corpuscular Hemoglobin 23.4(L) 27.0 - 33.0 pg [facility] Mean Corpuscular HGB Conc 31.0 31.0 - 36.0 g/dl [facility] Red Cell Distribution Width 17.2(H) 11.0 - 16.0 % [facility] Platelet Count 243 160 - 400 X10*3/uL [facility] Mean Platelet Volume 11.4 9.4 - 12.4 fL [facility] Neutrophils Percent Auto 60.5 45 - 73 % [facility] Imm Gran Pct Auto 0.2 0.0 - 0.4 % [facility] Lymphocytes Percent Auto 28.5 20 - 40 % [facility] Monocytes Percent Auto 8.4 2 - 11 % [facility] Eosinophils Percent Auto 1.9 0 - 4 % [facility] Basophils Percent Auto 0.5 0 - 2 % [facility] NRBC Pct Auto 0.0 0.0 - 0.2 /100WBC [facility] Neutrophils Absolute Auto 3.8 2.0 - 8.3 x10*3/uL [facility] Imm Gran Abs Auto 0.01 0.00 - 0.03 X10*3/uL [facility] Lymphocytes Absolute Auto 1.8 1.2 - 4.9 X10*3/uL [facility] Monocytes Absolute Auto 0.5 0.1 - 1.2 X10*3/uL [facility] Eosinophils Absolute Auto 0.1 0.0 - 0.4 X10*3/uL [facility] Basophils Absolute Auto 0.0 0.0 - 0.2 X10*3/uL [facility] NRBC Abs Auto 0.000 0.0 - 0.012 X10*3/uL [facility] Blood Venous blood specimen / Unknown 08/13/2024 8:05 AM EST 08/13/2024 2:15 PM EST us Jory Polk MD LAB BLOOD ORDERABLES Final Re sult [facility] [address] [place] [address] [phone] * (ABNORMAL) Comprehensive Metabolic Panel (08/13/2024 8:05 AM EST) Sodium 140 135 - 145 mmol/L [facility] Potassium 4.0 3.3 - 5.1 mmol/L [facility] Chloride 107 96 - 108 mmol/L [facility] Carbon Dioxide 28 22 - 29 mmol/L [facility] Anion Gap 9(L) 12 - 20 [facility] Urea Nitrogen (BUN) 11 9 - 16 mg/dL [facility] Creatinine, Serum 0.80 0.5 - 1.4 mg/dL [facility] Estimated Glomerular Filt Rate >60 [facility] Comment:Chronic Kidney Disea se: Estimated GFR < 60 mL/min/1.65j5Mckysn Kidney Disease: Estimated GFR < 15 mL/min/1.73m2 Glucose 92 60 - 115 mg/dL [facility] Calcium 9.2 8.4 - 10.2 mg/dL [facility] Bilirubin, Total 0.3 0.0 - 1.0 mg/dL [facility] Aspartate Amino Transferase 27 5 - 37 U/L [facility] Alanine Aminotransferase 28 0 - 40 U/L [facility] Total Protein 7.5 6.5 - 8.0 g/dL [facility] Albumin Level 4.4 3.5 - 5.0 g/dL [facility] Alkaline Phosphatase 103 39 - 117 U/L [facility] Blood Venous blood specimen / Unknown 08/13/2024 8:05 AM EST 08/13/2024 2:12 PM EST us Jory Polk MD LAB BLOOD ORDERABLES Final Re sult [facility] [address] [place] [phone] * Transthoracic Echo (TTE) Complete (08/06/2024) us Jory Polk MD CV ECHO PROCEDURES Final Resu lt * (ABNORMAL) Lipid Panel, Standard (12/15/2023 8:29 AM EDT) Triglycerides 66 <150 mg/dL [facility] Comment:Desirable Triglyceri de: less than 150 mg/dLBorderline High Triglyceride 150-199 mg/dLHigh Triglyceride: 200-499 mg/dLVery High Triglyceride: greater than or equal to 5OO mg/dL Cholesterol 188 <200 mg/dL [facility] Comment:Desirable Cholestero l: less than 200 mg/dLBorderline High Cholesterol: 200-239 mg/dLHigh Cholesterol: greater than 239 mg/dL LDL Cholesterol Calculated 105(H) <100 mg/dL [facility] Comment:Desirable LDL: less than 100 mg/dLNear Optimal/Above Optimal LDL: 110- 129 mg/dLBorderline High LDL: 130-159 mg/dLHigh LDL: 160-189 mg/dLVery High LDL: greater than or equal to 190 mg/dL HDL Cholesterol 70 >40 mg/dL [facility] Comment:Desirable HDL: great er than 40 mg/dL Note: This HDL assay may give artificially low results in patients with liver disease. Blood Venous blood specimen / Unknown 12/15/2023 8:29 AM EDT 12/15/2023 2:27 PM EDT us Jory Polk MD LAB BLOOD ORDERABLES Final Re sult Performing Organization Address [facility] Co de Phone Number [facility] [address] [place] [address] [phone] * Hepatitis C Antibody with Reflex to HCV, RNA, Quantitative, Real-Time PCR (12/15/2023 8:24 AM EDT) Hepatitis C Antibody Nonreactive Nonreactive [facility] Comment:Antibodies to HCV no t detected; does not exclude early acuteHCV infection. Blood Venous blood specimen / Unknown 12/15/2023 8:24 AM EDT 12/15/2023 2:27 PM EDT us Jory Polk MD LAB BLOOD ORDERABLES Final Re sult Performing Organization Address [facility] Co de Phone Number [facility] [address] [place] [phone] * HIV-1/2 Antigen and Antibodies, Fourth Generation, with Reflexes (12/15/2023 8:24 AM EDT) HIV AB/AG Nonreactive Nonreactive [facility] Comment:HIV-1 p24 Ag and/or HIV-1/HIV-2 Ab not detected.A test result that is nonreactive does not exclude thepossibility of exposure to or infection with HIV-1 and/orHIV-2. Nonreactive results in this assay for individualswith prior exposure to HIV-1 and/or HIV-2 may be due toantigen and antibody levels that are below the limit ofdetection of this assay.The iVilka HIV Ag/Ab Combo assay result andsupplemental assay results should be interpreted inconjunction with the patient's clinical presentation,history and other laboratory results. If the results areinconsistent with clinical evidence, additional testing issuggested to confirm the result. Blood Venous blood specimen / Unknown 12/15/2023 8:24 AM EDT 12/15/2023 2:27 PM EDT us Jory Polk MD LAB BLOOD ORDERABLES Final Re sult [facility] [address] [place] [address] [phone] from Last 3 Months or Most Recently Relevant to Health Maintenance [facility] Care Teams Alfalfa Dehydrator Operator Relationship Specialty Start Date End Date Jory Polk MD [address] [place] [phone] PCP - General Family Medicine 10/10/23 Katie Courtney [address] [place] [phone] Community Health Worker 05/24/24 Yenny Shaw Agriculture ConsultantVegetable Farm Manager 07/16/24
--- OUTSIDE RECORDS SUMMARY | 2024-11-04 08:01 | XMS_ITS | Encounter Summary ---
Author Organization [employer] Address [address] [facility] [address] [place] [address] Care Team Providers Care Fiber Artist Name Role Phone Jory Polk MD Primary Care Provider [phone] Reason for Visit * Reason Onset Date Comments PT-1 12/30/2023 Encounter Details Date Type Department Care Team ([facility] st Contact Info) Description 12/30/2023 Telephone [facility] [address] [place] [address] Jory Polk MD [address] [place] [address] PT-1 Social History Tobacco Use Types Packs/Day [...] Y/N: Yes Provider name or facility name: [facility] Facility Address: [address] [place] [address] Dr [place] [address] Escort needed: Y/N: No Do you have [...] documented as of this encounter Care Teams Fiber Artist Relationship Specialty Start Date End Date Jory Polk MD [address] [place] [address] PCP - General Family Medicine 10/10/23 Katie Courtney [address] [place] [phone] Community Health Worker 05/24/24 Yenny Shaw Film And Video EditorIntegrated Program Teacher 07/16/24 documented as of this encounter
--- OUTSIDE RECORDS SUMMARY | 2024-11-04 08:01 | XMS_ITS | Encounter Summary ---
Author Organization [employer] Address 75 [facility] 7t [place] [address] Care Team Providers Care Foreman/Pile Driving And Erection Name Role Phone Jory Polk MD Primary Care Provider [phone] Reason for Visit * Reason Onset Date Comments PT1 12/23/2023 Encounter Details Date Type Department Care Team ([facility] st Contact Info) Description 12/23/2023 Telephone [facility] MEDICINE 230 [place] [address] Jory Polk MD 505 [place] [address] PT1 Social History Tobacco Use Types Packs/Day [...] Y/N: Yes Provider name or facility name: [facility] Facility Address: [address] [place] [address] Escort needed: Y/N: No Do you have [...] documented as of this encounter Care Teams Foreman/Pile Driving And Erection Relationship Specialty Start Date End Date Jory Polk MD 230 [place] [address] PCP - General Family Medicine 10/10/23 Katie Courtney [address] [place] [address] Community Health Worker 05/24/24 Yenny Shaw Pea Viner MechanicTree Driller 07/16/24 documented as of this encounter
--- OUTSIDE RECORDS SUMMARY | 2024-11-04 08:01 | XMS_ITS | Encounter Summary ---
Author Organization [employer] Address 75 [facility] 7t [place] [address] Care Team Providers Care Furnace Operator Name Role Phone Jory Polk MD Primary Care Provider [phone] Reason for Visit * Reason Onset Date Comments Referral 06/10/2024 Encounter Details Date Type Department Care Team ([facility] st Contact Info) Description 06/10/2024 Telephone [facility] MEDICINE 230 [place] [address] Jory Polk MD 505 [place] [address] Referral Social History Tobacco Use Types Packs/Day [...] Y/N: Yes Provider name or facility name: [facility] Facility Address: [address] [place] [address] Escort needed: Y/N: No Do you have [...] documented as of this encounter Care Teams Furnace Operator Relationship Specialty Start Date End Date Jory Polk MD [address] [place] [address] PCP - General Family Medicine 10/10/23 Katie Courtney [address] [place] [address] Community Health Worker 05/24/24 Yenny Shaw Appeals Reviewer VeteranHuman Resources Operations Coordinator 07/16/24 documented as of this encounter
--- OUTSIDE RECORDS SUMMARY | 2024-11-04 08:01 | XMS_ITS | Encounter Summary ---
Author Organization [employer] Address 75 [facility] 7t [place] [address] Care Team Providers Care Sales Agent Trading Stamps Name Role Phone Jory Polk MD Primary Care Provider Reason for Visit * Reason Onset Date Comments PT-1 02/10/2024 Encounter Details Date Type Department Care Team ([facility] st Contact Info) Description 02/10/2024 Telephone [facility] MEDICINE 230 [place] [address] Jory Polk MD 505 [place] [address] PT-1 Social History Tobacco Use Types Packs/Day [...] Y/N: Yes Provider name or facility name: [facility] Facility Address: [address] [place] [address] Escort needed: Y/N: No Do you have [...] documented as of this encounter Care Teams Sales Agent Trading Stamps Relationship Specialty Start Date End Date Jory Polk MD 230 [place] [address] PCP - General Family Medicine 10/10/23 Katie Courtney [address] [place] [address] Community Health Worker 05/24/24 Yenny Shaw Miller Head Assistant Wet ProcessDurable Medical Equipment Repairer 07/16/24 documented as of this encounter
--- OUTSIDE RECORDS SUMMARY | 2024-11-04 08:01 | XMS_ITS | Encounter Summary ---
Author Organization [employer] Address 75 [facility] 7t [place] [address] Care Team Providers Care Angle Roll Operator Name Role Phone Jory Polk MD Primary Care Provider [phone] Reason for Visit * Reason Onset Date Comments New Patient 05/28/2023 Encounter Details Date Type Department Care Team (Late st Contact Info) Description 05/28/2023 Telephone [facility] MEDICINE 230 [place] [address] Baldomero Varela MD 230 [place] [address] New Patient Social History Tobacco Use Types [...] been transfer over to wait list for FORMS ANALYSIS MANAGER. EFFECTIVE SINCE 05/28/2023 documented in this encounter Plan of Treatment Not on file documented as of this encounter Visit Diagnoses Not on filedocumented in this encounter Care Teams Angle Roll Operator Relationship Specialty Start Date End Date Jory Polk MD [address] [place] [address] PCP - General Family Medicine 10/10/23 Katie Courtney [address] [place] [address] Community Health Worker 05/24/24 Yenny Shaw Deaf InterpreterFreight Car Cleaner [employer] 07/16/24 documented as of this encounter
--- OUTSIDE RECORDS SUMMARY | 2024-11-04 08:01 | XMS_ITS | Encounter Summary ---
Author Organization [employer] Address 75 [facility] 7t [place] [address] Care Team Providers Care Emt I/85 Name Role Phone Jory Polk MD Primary Care Provider [phone] Reason for Visit * Reason Onset Date Comments PT-1 03/11/2024 Encounter Details Date Type Department Care Team ([facility] st Contact Info) Description 03/11/2024 Telephone [facility] MEDICINE 230 [place] [address] Jory Polk MD 505 [place] [address] PT-1 Social History Tobacco Use Types Packs/Day [...] Y/N: Yes Provider name or facility name: [facility] Facility Address: [address] [place] [address] Escort needed: Y/N: No Do you have a wheelchair: Y/N: No Visits: All future appt's Pt has a future appt on 04/01 @ 8 Patient calling requesting PT1 Home Address verified: Y/N: Yes Provider name [facility] facility name[facility] Facility Address: [address] [place] [address] Escort needed: Y/N: No Do you have [...] documented as of this encounter Care Teams Emt I/85 Relationship Specialty Start Date End Date Jory Polk MD [address] [place] [address] PCP - General Family Medicine 10/10/23 Katie Courtney [address] [place] [address] Community Health Worker 05/24/24 Yenny Shaw Machine GunnerTunnel Drier Operator 07/16/24 documented as of this encounter
--- OUTSIDE RECORDS SUMMARY | 2024-11-04 08:01 | XMS_ITS | Encounter Summary ---
Author Organization [employer] Address 75 [facility] 7t [place] [address] Care Team Providers Care Manager Marketing Communications Name Role Phone Jory Polk MD Primary Care Provider [phone] Reason for Visit * Reason Onset Date Comments PT1 12/02/2023 Encounter Details Date Type Department Care Team ([facility] st Contact Info) Description 12/02/2023 Telephone [facility] 505 [place], [place] [phone] Jory Polk MD 505 [place] [address] PT1 Social History Tobacco Use Types Packs/Day [...] calling in regards to PT1. States called [employer] and was advised did not receive request and provider will need to call to expedite PT1 for 12/07. * Telephone Encounter - Sammi Alanis - 12/05/2023 9:49 AM EDT PT-1 submitted for patient. They will receive a letter of approval or denial in the mail. * Telephone Encounter - Mk [place] - 12/04/2023 11:51 AM EDT Tc from pt requesting status on PT-1, junior technical writer did advise can take 24 hrs up to a week, pt stated they have a MRI scheduled for 12/08/23. Also advised can take another week for insurance approval. Pt verbalizes understanding. * Telephone Encounter - Polina Luis - 12/02/2023 12:33 PM EDT Patient calling requesting PT1 Home Address verified: Y/N: Yes Provider name or facility name: [facility] Facility Address: [address] [place] [address] Escort needed: Y/N: No Do you have [...] as of this encounter Care Teams Manager Marketing Communications Relationship Specialty Start Date End Date Jory Polk MD [address] [place] [address] PCP - General Family Medicine 10/10/23 Katie Courtney [address] [place] [address] Community Health Worker 05/24/24 Yenny Shaw Tile ShaderStaff Veterinarian 07/16/24 documented as of this encounter
--- NOTE | 2024-11-04 08:19 | A.OFFVIS_ITS ---
Vital Signs 11/04/24 08:20 Height 5 ft 5 in Weight 165 lb BMI 27.5 Intake Visit Reasons: OV-MRI Knee LT review-non urgent Intake Note: Raheem is a 58 year old male who presents today for a Left Knee MRI review. Patient was last seen in Aug where he reported chronic left knee pain and previous injury at the age of 12. Left Knee MRI 09/21/24 IMPRESSION: Edema of the prefemoral fat pad and Hoffa's fat pad which can be seen in the setting of fat pad impingement syndrome. Clinical correlation is recommended. Allergies No Known Allergies [No Known Allergies*] Allergy (Verified 11/04/24 08:23) HPI HPI OV-MRI Knee LT review-non urgent: Details: Raheem is a 58 year old male who presents today for a Left Knee MRI review. Patient was last seen in Aug where he reported chronic left knee pain and previous injury at the age of 12. His primary complaint is pain with stairs. He has lots of stairs at his home and climbs up and down them every day. [facility] Medical History Left shoulder pain Rotator cuff tear, left Asthma Surgical History Left inguinal hernia (05/13/24) S/P left rotator cuff repair H/O colonoscopy History of facial surgery Hx of shoulder surgery Family History Father Colon cancer Paternal Uncle Stomach cancer Paternal Grandfather Stomach cancer Social History Housing Other:: [facility] [place] [facility] Are you a primary director career services to a significant other at home: No Do you presently have visiting nurse or other home services: No Alcohol intake: current Alcohol intake frequency: does not drink Patient Tobacco Use Status: Current everyday Tobacco user Tobacco use type: Cigarette Current occupational status: employed Current occupation: [employer], Right hand dominant Physical Exam Vital Signs: BMI result Body Mass Index 27.5 Extrem Other: No joint line tenderness. Negative Hoffa's test. No effusion. Mild retropatellar tenderness to palpation. Office Procedures Joint Inj/Aspir; Non-Pain Clin Joint Injection/Drain Details: Injected 1 mL of Decadron and 3 mL 1% lidocaine and 3 mL of 0.25% Marcaine. Site was prepped using aseptic technique. Patient tolerated the procedure well. Shoulders, Hips, Knees, Knee Large Joint Injection : Left Knee Coding Procedure code (CPT) selection complete Results Reviewed Results Reviewed: I personally reviewed the MR images. Left Knee MRI 09/21/24 IMPRESSION: Edema of the prefemoral fat pad and Hoffa's fat pad which can be seen in the setting of fat pad impingement syndrome. Clinical correlation is recommended. Assessment & Plan Assessment & Plan (1) Patellofemoral joint pain: Code(s): M25.569 - Pain in unspecified knee Category: Medical Plan: A patellofemoral joint pain with relatively unremarkable MRI. I injected his left knee. Follow up PRN. Coding Level of Care Code Est Pt Level 3 (47943) Diagnoses Patellofemoral joint pain M25.569 CPT Codes Shoulders, Hips, Knees, - Knee Large Joint Injection : Left Knee ([id number])
[2024-11-04 08:20] VITALS: BMI 27.5
== END 2024-11-04 09:06 | disposition home or self-care (01) ==
LOC: HO.HOS 07:57
PROVIDERS: PCP Family Medicine; Visit Provider Orthopaedic Surgery
DX: M25.562 Pain in left knee (principal)
CPT/HCPCS: 20610; 99213

== ENCOUNTER → 2024-11-04 07:57 | Outpatient (BNVA) | payer MEDICAID, SELFPAY | PROVIDERS: PCP Family Medicine; Visit Provider Orthopaedic Surgery | DX: M25.562 Pain in left knee (principal) | CPT/HCPCS: 20610; 99212; J0665; J1100; J2003 ==

== ENCOUNTER 2024-11-16 06:19 | Outpatient (REF) | payer MEDICAID, SELFPAY ==
--- OUTSIDE RECORDS SUMMARY | 2024-11-16 06:22 | XMS_ITS | Encounter Summary ---
Author Organization [employer] Address 75 [facility] 7t [place] [address] Care Team Providers Care Spraying Machine Operator Name Role Phone Jory Polk MD Primary Care Provider [phone] Reason for Visit * Reason Onset Date Comments Referral 06/10/2024 Encounter Details Date Type Department Care Team ([facility] st Contact Info) Description 06/10/2024 Telephone [facility] MEDICINE 230 [place] [address] Jory Polk MD 505 [place] [address] Referral Social History Tobacco Use Types Packs/Day [...] Y/N: Yes Provider name or facility name: [facility] Facility Address: [address] [place] [address] Escort needed: Y/N: No Do you have a wheelchair: Y/N: No ?? If yes- Manual or electric: Visits: (2) ( x monthly) documented in this encounter Plan of Treatment Upcoming Encounters Date Type Department Care Team (Late st Contact Info) Description 12/31/2024 9:00 AM EDT Office Visit [facility] MED & PEDS 505 [place] [address] Antonia Khan MD 505 [place] [address] documented as of this encounter Visit Diagnoses Not on filedocumented in this encounter Additional Health Concerns Assessment Noted Time PHQ-9 Depression Total Score: 23 024 12:05 PM EDT documented as of this encounter Care Teams Spraying Machine Operator Relationship Specialty Start Date End Date Jory Polk MD 230 [place] [address] PCP - General Family Medicine 10/10/23 Katie Courtney [address] [place] [address] Community Health Worker 05/24/24 Yenny Shaw Senior Accounting SpecialistHealth Education Coordinator 07/16/24 documented as of this encounter
--- OUTSIDE RECORDS SUMMARY | 2024-11-16 06:22 | XMS_ITS | Encounter Summary ---
Author Organization [employer] Address 75 [facility] 7t [place] [address] Care Team Providers Care Debt And Budget Counselor Name Role Phone Jory Polk MD Primary Care Provider [phone] Reason for Visit * Reason Onset Date Comments FYI 03/22/2024 Encounter Details Date Type Department Care Team ([facility] st Contact Info) Description 03/22/2024 Telephone [facility] MEDICINE 230 [place] [address] Jory Polk MD 505 [place] [address] FYI Social History Tobacco Use Types Packs/Day [...] * Telephone Encounter - Sylvester Hsu - 03/22/2024 3:10 PM EDT Tc from pt calling in regards to a US that was completed and wanted to inform pcp and it was resulted with him having a hernia. If any questions you can contact pt at [phone]. ([place] Islander Speaker) documented in this encounter Plan of Treatment Upcoming Encounters Date Type Department Care Team (Late st Contact Info) Description 12/31/2024 9:00 AM EDT Office Visit [facility] MED & PEDS 505 [place] [address] Antonia Khan MD 505 [place] [address] documented as of this encounter Visit Diagnoses Not on filedocumented in this encounter Additional Health Concerns Assessment Noted Time PHQ-9 Depression Total Score: 15 024 9:20 AM EDT documented as of this encounter Care Teams Debt And Budget Counselor Relationship Specialty Start Date End Date Jory Polk MD 230 [place] [address] PCP - General Family Medicine 10/10/23 Katie Courtney [address] [place] [address] Community Health Worker 05/24/24 Yenny Shaw Doughnut Batter MixerFire Captain 07/16/24 documented as of this encounter
--- OUTSIDE RECORDS SUMMARY | 2024-11-16 06:22 | XMS_ITS | Encounter Summary ---
Author Organization [employer] Address 75 [facility] 7t [place] [address] Care Team Providers Care Marine Pilot Name Role Phone Jory Polk MD Primary Care Provider Reason for Visit * Reason Onset Date Comments PT-1 02/10/2024 Encounter Details Date Type Department Care Team ([facility] st Contact Info) Description 02/10/2024 Telephone [facility] MEDICINE 230 [place] [address] Jory Polk MD 505 [place] [address] PT-1 Social History Tobacco Use Types Packs/Day [...] Yes Provider name or facility name: [facility] Facility Address: [address] [place] [address] Escort needed: Y/N: No Do you have a wheelchair: Y/N: No If yes- Manual or electric: N/A Visits: 2 times monthly documented in this encounter Plan of Treatment Upcoming Encounters Date Type Department Care Team ([facility] st Contact Info) Description 12/31/2024 9:00 AM EDT Office Visit [facility] MED & PEDS 505 [place] [address] Antonia Khan MD 505 [place] [address] documented as of this encounter Visit Diagnoses Not on filedocumented in this encounter Additional Health Concerns Assessment Noted Time PHQ-9 Depression Total Score: 15 024 9:20 AM EDT documented as of this encounter Care Teams Marine Pilot Relationship Specialty Start Date End Date Jory Polk MD 230 [place] [address] PCP - General Family Medicine 10/10/23 Katie Courtney [address] [place] [address] Community Health Worker 05/24/24 Yenny Shaw Sheet TurnerTrademark Paralegal 07/16/24 documented as of this encounter
--- OUTSIDE RECORDS SUMMARY | 2024-11-16 06:22 | XMS_ITS | Encounter Summary ---
Author Organization [employer] Address 75 [facility] 7t [place] [address] Care Team Providers Care Risk Management Director Name Role Phone Jory Polk MD Primary Care Provider Reason for Visit * Reason Onset Date Comments PT-1 08/12/2024 Encounter Details Date Type Department Care Team ([facility] st Contact Info) Description 08/12/2024 Telephone [facility] MEDICINE 230 [place] [address] Jory Polk MD 505 [place] [address] PT-1 Social History Tobacco Use Types Packs/Day [...] Y/N: Yes Provider name or facility name: [address] [place] [address] Dr [address] [facility] [address] Escort needed: Y/N: No Do you have a wheelchair: Y/N: No Visits: (3) ( x monthly) Pt stated appointment is for 08/20/2024 documented in this encounter Plan of Treatment Upcoming Encounters Date Type Department Care Team ([facility] st Contact Info) Description 12/31/2024 9:00 AM EDT Office Visit [facility] CHC MED & PEDS 505 [place] [address] Antonia Khan MD 505 [place] [address] documented as of this encounter Visit Diagnoses Not on filedocumented in this encounter Additional Health Concerns Assessment Noted Time PHQ-9 Depression Total Score: 23 024 12:05 PM EDT documented as of this encounter Care Teams Risk Management Director Relationship Specialty Start Date End Date Jory Polk MD 230 [place] [address] PCP - General Family Medicine 3/15/24 Katie Courtney [address] [place] [address] Community Health Worker 05/24/24 Yenny Shaw Blind HangerYarn Conditioner 07/16/24 documented as of this encounter
--- OUTSIDE RECORDS SUMMARY | 2024-11-16 06:22 | XMS_ITS | Encounter Summary ---
Author Organization [employer] Address 75 [facility] 7t [place] [address] Care Team Providers Care Chemical Analyst Name Role Phone Jory Polk MD Primary Care Provider [phone] Reason for Visit * Reason Onset Date Comments PT-1 03/11/2024 Encounter Details Date Type Department Care Team ([facility] st Contact Info) Description 03/11/2024 Telephone [facility] MEDICINE 230 [place] [address] Jory Polk MD 505 [place] [address] PT-1 Social History Tobacco Use Types Packs/Day [...] Y/N: Yes Provider name or facility name: [facility] Facility Address: [address] [place] [address] Escort needed: Y/N: No Do you have a wheelchair: Y/N: No Visits: All future appt's Pt has a future appt on 04/01 @ 8 Patient calling requesting PT1 Home Address verified: Y/N: Yes Provider name [facility] facility name: [facility] Facility Address: [address] [place] [address] Escort needed: Y/N: No Do you have a wheelchair: Y/N: No If yes- Manual or electric: no Visits: 3 appt on 04/16 @ 10:15 documented in this encounter Plan of Treatment Upcoming Encounters Date Type Department Care Team (Late st Contact Info) Description 12/31/2024 9:00 AM EDT Office Visit [facility] CHC MED & PEDS 505 [place], [place] [phone] Antonia Khan MD 505 [place] [address] documented as of this encounter Visit Diagnoses Not on filedocumented in this encounter Additional Health Concerns Assessment Noted Time PHQ-9 Depression Total Score: 15 10/20/ 024 9:20 AM EDT documented as of this encounter Care Teams Chemical Analyst Relationship Specialty Start Date End Date Jory Polk MD 230 [place] [address] PCP - General Family Medicine 10/10/23 Katie Courtney [address] [place] [address] Community Health Worker 05/24/24 Yenny Shaw Hospitality Services ManagerGolf Coach 07/16/24 documented as of this encounter
--- OUTSIDE RECORDS SUMMARY | 2024-11-16 06:22 | XMS_ITS | Encounter Summary ---
Author Organization [employer] Address 75 [facility] 7t [place] [address] Care Team Providers Care Apprentice Name Role Phone Jory Polk MD Primary Care Provider [phone] Reason for Visit * Reason Onset Date Comments PT1 08/12/2024 Encounter Details Date Type Department Care Team ([facility] st Contact Info) Description 08/12/2024 Telephone [facility] MEDICINE 230 [place] [address] Jory Polk MD 505 [place] [address] PT1 Social History Tobacco Use Types Packs/Day [...] with others, in a hotel, in a care home, living outside on the street, on [...] Yes Provider name or facility name: [address] [place] [address] [place] [address] Escort needed: Y/N: Yes Do you have a wheelchair: Y/N: No If yes- Manual or electric: N/A Visits: (3) ( x monthly) documented in this encounter Plan of Treatment Upcoming Encounters Date Type Department Care Team (Late st Contact Info) Description 12/31/2024 9:00 AM EDT Office Visit [facility] MED [facility] PEDS 505 [place], [place] [phone] Antonia Khan MD 505 [place], [place] [phone] documented as of this encounter Visit Diagnoses Not on filedocumented in this encounter Additional Health Concerns Assessment Noted Time PHQ-9 Depression Total Score: 23 024 12:05 PM EDT documented as of this encounter Care Teams Apprentice Relationship Specialty Start Date End Date Jory Polk MD 230 [place] [address] PCP - General Family Medicine 10/10/23 Katie Courtney [address] [place] [address] Community Health Worker 05/24/24 Yenny Shaw Vice President Of ManufacturingLine Assembler Aircraft 07/16/24 documented as of this encounter
--- OUTSIDE RECORDS SUMMARY | 2024-11-16 06:22 | XMS_ITS | Encounter Summary ---
Author Organization [employer] Address 75 [facility] 7t [place] [address] Care Team Providers Care Business Office Representative Name Role Phone Jory Polk MD Primary Care Provider [phone] Reason for Visit * Reason Onset Date Comments PT-1 12/30/2023 Encounter Details Date Type Department Care Team ([facility] st Contact Info) Description 12/30/2023 Telephone [facility] MEDICINE 230 [place] [address] Jory Polk MD 505 [place] [address] PT-1 Social History Tobacco Use Types Packs/Day [...] Y/N: Yes Provider name or facility name: [facility] Facility Address: [address] [place] [address] Dr Camilo [place] [address] Escort needed: Y/N: No Do you have a wheelchair: Y/N: No If yes- Manual or electric: N/A Visits: 3 times monthly documented in this encounter Plan of Treatment Upcoming Encounters Date Type Department Care Team (Late st Contact Info) Description 12/31/2024 9:00 AM EDT Office Visit [facility] CHC MED & PEDS 505 [place], [place] [phone] Antonia Khan MD 505 [place], [place] [phone] documented as of this encounter Visit Diagnoses Not on filedocumented in this encounter Additional Health Concerns Assessment Noted Time PHQ-9 Depression Total Score: 15 03/26/ 024 9:20 AM EDT documented as of this encounter Care Teams Business Office Representative Relationship Specialty Start Date End Date Jory Polk MD [address] [place] [address] PCP - General Family Medicine 10/10/23 Katie Courtney [address] [place] [address] Community Health Worker 05/24/24 Yenny Shaw Personnel WorkerPipe Cleaner 07/16/24 documented as of this encounter
--- OUTSIDE RECORDS SUMMARY | 2024-11-16 06:22 | XMS_ITS | Encounter Summary ---
Author Organization [employer] Address 75 [facility] 7t [place] [address] Care Team Providers Care Glove Operator Name Role Phone Jory Polk MD Primary Care Provider [phone] Reason for Visit * Reason Onset Date Comments New Patient 05/28/2023 Encounter Details Date Type Department Care Team ([facility] Contact Info) Description 05/28/2023 Telephone [facility] MEDICINE 230 [place] [address] Baldomero Varela MD 230 [place] [address] New Patient Social History Tobacco Use Types [...] been transfer over to wait list for 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 EFFECTIVE SINCE 05/28/2023 documented in this encounter Plan of Treatment Upcoming Encounters Date Type Department Care Team ([facility] Contact Info) Description 12/31/2024 9:00 AM EDT Office Visit [facility] MED & PEDS 505 [place], [place] [phone] Antonia Khan MD 505 [place] [address] documented as of this encounter Visit Diagnoses Not on filedocumented in this encounter Care Teams Glove Operator Relationship Specialty Start Date End Date Jory Polk MD [address] [place] [address] PCP - General Family Medicine 10/10/23 Katie Courtney [address] [place] [address] Community Health Worker 05/24/24 Yenny Shaw Online Merchandising SpecialistMixing House Operator 07/16/24 documented as of this encounter
--- OUTSIDE RECORDS SUMMARY | 2024-11-16 06:22 | XMS_ITS | Encounter Summary ---
Author Organization [employer] Address 75 [facility] 7t [place] [address] Care Team Providers Care Lieutenant Firefighter Name Role Phone Jory Polk MD Primary Care Provider [phone] Reason for Visit * Reason Onset Date Comments Pt1 10/15/2023 Encounter Details Date Type Department Care Team ([facility] st Contact Info) Description 10/15/2023 Telephone [facility] MEDICINE 230 [place] [address] Jory Polk MD 505 [place] [address] Pt1 Social History Tobacco Use Types Packs/Day [...] Y/N: Yes Provider name or facility name: [facility] Facility Address: [address] [place] [address] Escort needed: Y/N: No Do you have a wheelchair: Y/N: No If yes- Manual or electric: No Visits: All future Appt's documented in this encounter Plan of Treatment Upcoming Encounters Date Type Department Care Team ([facility] st Contact Info) Description 12/31/2024 9:00 AM EDT Office Visit [facility] MED & PEDS 505 [place] [address] Antonia Khan MD 505 [place] [address] documented as of this encounter Visit Diagnoses Not on filedocumented in this encounter Additional Health Concerns Assessment Noted Time PHQ-9 Depression Total Score: 20 024 12:57 PM EDT documented as of this encounter Care Teams Lieutenant Firefighter Relationship Specialty Start Date End Date Jory Polk MD 230 [place] [address] PCP - General Family Medicine 10/10/23 Katie Courtney [address] [place] [address] Community Health Worker 05/24/24 Yenny Shaw Balloon DipperAdult Probation Officer 07/16/24 documented as of this encounter
--- OUTSIDE RECORDS SUMMARY | 2024-11-16 06:22 | XMS_ITS | Encounter Summary ---
Author Organization [employer] Address 75 [facility] 7t [place] [address] Care Team Providers Care Tool Checker Name Role Phone Jory Polk MD Primary Care Provider [phone] Reason for Visit * Reason Onset Date Comments PT-1 04/13/2024 Encounter Details Date Type Department Care Team ([facility] st Contact Info) Description 04/13/2024 Telephone [facility] MEDICINE 230 [place] [address] Jory Polk MD 505 [place] [address] PT-1 Social History Tobacco Use Types Packs/Day [...] * Telephone Encounter - Sylvester Shadi - 04/13/2024 10:19 AM EDT Patient calling requesting PT1 Home Address verified: Y/N: Yes Provider name or facility name: [facility] Facility Address: [address] [place] [phone] Escort needed: Y/N: No Do you have a wheelchair: Y/N: No If yes- Manual or electric: N/A Visits: 1 time monthly documented in this encounter Plan of Treatment Upcoming Encounters Date Type Department Care Team ([facility] Contact Info) Description 12/31/2024 9:00 AM EDT Office Visit [facility] CHC MED & PEDS 505 [place] [address] Antonia Khan MD 505 [place] [address] documented as of this encounter Visit Diagnoses Not on filedocumented in this encounter Additional Health Concerns Assessment Noted Time PHQ-9 Depression Total Score: 15 024 9:20 AM EDT documented as of this encounter Care Teams Tool Checker Relationship Specialty Start Date End Date Jory Polk MD 230 [place] [address] PCP - General Family Medicine 10/10/23 Katie Courtney [address] [place] [address] Community Health Worker 05/24/24 Yenny Shaw Soccer PlayerPipe Stem Repairer 07/16/24 documented as of this encounter
--- OUTSIDE RECORDS SUMMARY | 2024-11-16 06:22 | XMS_ITS | Encounter Summary ---
Author Organization [employer] Address 75 [facility] 7t [place] [address] Care Team Providers Care Concrete Pipe Plant Supervisor Name Role Phone Jory Polk MD Primary Care Provider [phone] Reason for Visit * Reason Onset Date Comments PT-1 10/30/2023 Encounter Details Date Type Department Care Team ([facility] st Contact Info) Description 10/30/2023 Telephone [facility] MEDICINE 230 [place] [address] Jory Polk MD 505 [place] [address] PT-1 Social History Tobacco Use Types Packs/Day [...] [facility] Facility Address: [address] [place] [address] Escanil needed: Y/N: No Do you have a wheelchair: Y/N: No If yes- Manual or electric: Visits: 2 monthly Patient calling requesting PT1 Home Address verified: Y/N: Yes Provider name or facility name: [facility] Facility Address: [address] [place] [address] [facility] needed: Y/N: No Do you have a wheelchair: Y/N: No If yes- Manual or electric: Visits: 3 monthly documented in this encounter Plan of Treatment Upcoming Encounters Date Type Department Care Team ([facility] st Contact Info) Description 12/31/2024 9:00 AM EDT Office Visit [facility] MED & PEDS 505 [place] [address] Antonia Khan MD [address] [place] [address] documented as of this encounter Visit Diagnoses Not on filedocumented in this encounter Additional Health Concerns Assessment Noted Time PHQ-9 Depression Total Score: 15 10/20/ 024 9:20 AM EDT documented as of this encounter Care Teams Concrete Pipe Plant Supervisor Relationship Specialty Start Date End Date Jory Polk MD [address] [place] [address] PCP - General Family Medicine 10/10/23 Katie Courtney [address] [place] [address] Community Health Worker 05/24/24 Yenny Shaw Pmp Project ManagerTruck Service Technician 07/16/24 documented as of this encounter
--- OUTSIDE RECORDS SUMMARY | 2024-11-16 06:22 | XMS_ITS | Encounter Summary ---
Author Organization [employer] Address 75 [facility] 7t [place] [address] Care Team Providers Care Residential Solar Sales Consultant Name Role Phone Jory Polk MD Primary Care Provider [phone] Reason for Visit * Reason Onset Date Comments PT1 12/02/2023 Encounter Details Date Type Department Care Team ([facility] st Contact Info) Description 12/02/2023 Telephone C [facility] MED & PEDS 505 [place], [place] [phone] Jory Polk MD 505 [place] [address] PT1 Social History Tobacco Use Types Packs/Day [...] calling in regards to PT1. States called [employer] and was advised did not receive request and provider will need to call to expedite PT1 for 12/07. * Telephone Encounter - Sammi Alanis - 12/05/2023 9:49 AM EDT PT-1 submitted for patient. They will receive a letter of approval or denial in the mail. * Telephone Encounter - Mk Taylor - 12/04/2023 11:51 AM EDT Tc from pt requesting status on PT-1, insurance underwriter sales did advise can take 24 hrs up to a week, pt stated they have a MRI scheduled for 12/08/23. Also advised can take another week for insurance approval. Pt verbalizes understanding. * Telephone Encounter - Polina Luis - 12/02/2023 12:33 PM EDT Patient calling requesting PT1 Home Address verified: Y/N: Yes Provider name or facility name: [facility] Facility Address: [address] [place] [address] Escort needed: Y/N: No Do you have a wheelchair: Y/N: No If yes- Manual or electric: no Visits: 2-3 visit Appt: 12/08/23 at 8 am documented in this encounter Plan of Treatment Upcoming Encounters Date Type Department Care Team ([facility] st Contact Info) Description 12/31/2024 9:00 AM EDT Office Visit [facility] MED & PEDS 505 [place] [address] Antonia Khan MD 505 [place] [address] documented as of this encounter Visit Diagnoses Not on filedocumented in this encounter Additional Health Concerns Assessment Noted Time PHQ-9 Depression Total Score: 15 024 9:20 AM EDT documented as of this encounter Care Teams Residential Solar Sales Consultant Relationship Specialty Start Date End Date Jory Polk MD [address] [place] [address] PCP - General Family Medicine 10/10/23 Katie Courtney [address] [place] [address] Community Health Worker 05/24/24 Yenny Shaw Refrigerating EngineerOptical Manager 07/16/24 documented as of this encounter
--- OUTSIDE RECORDS SUMMARY | 2024-11-16 06:22 | XMS_ITS | Clinical Summary ---
Author Organization [employer] Address [address] [place] [address] 7t [place] [address] Care Team Providers Care Vp Sales Name Role Phone Jory Polk MD Primary Care Provider [phone] Allergies No known active allergies Medications * This document contains information received from the source organization and may not represent a complete record from that organization. albuterol 108 (90 Base) MCG/ACT inhaler Inhale 2 puffs every 4 (four) hours if needed for wheezing. 18 g 4 Active hydrOXYzine HCl (Atarax) 50 MG tabletIndicatio [...] D AL ACOSTARSE 4 Active HYDROcodone-filomena taminophen (Newry) 5-325 MG tablet TOME ALEKS TABLETA POR [...] A ORAL TODOS LOS D 4 Active amLODIPine (Norvasc) 10 MG tablet TAKE 1 TABLET (10 MG) BY MOUTH ONCE PER DAY. 90 tablet 1 5 Active diclofenac (Cataflam) 50 MG tablet TOME 1 TABLETA POR VIA ORAL JEANETH VECES AL VIGNESH 90 tablet 5 Active omeprazole (PriLOSEC) [address] capsule TAKE 1 CAPSULE BY MOUTH BEFORE BREAKFAST. 90 capsule 5 Active Active Problems Problem Noted Date [...] intervention , Patient to reach out to [facility] team as needed, Patient to reach out to [facility] as needed, and Patient to call [facility] for OP and psych med management intake. We discussed that if by end of summer he has not been connected to psych medication management he will follow up with [facility] for alternative options Assessment & Plan (11/17/2023 3:53 PM EDT): New/Additional Services needed PCP management Off-site services for Behavioral Health Integration Plan Internal Follow up with [facility], Cold handoff to [facility]/FP, Follow up with [facility] on 10/20/23 External Patient to reach out to [facility] for services around OP BH therapy and psych medication management Patient Self Plan Patient to utilize skills provided in intervention , Patient to reach out to [facility] team as needed, and Patient to reach out to [facility] as needed Assessment & Plan (10/11/2023 1:54 AM EDT): Hx of bipolar disorder with no current psychiatric or therapeutic care in place. Plan is to initiate the process of setting up the patient with the necessary psychiatric and medical services, with a request for services to be provided in [place]. Encounters Date Type Department Care Team Description 11/09/2024 Telephone [facility] MED & PEDS 505 [place] [address] Jory Polk MD Nurse Triage 10/22/2024 Telephone [facility] MEDICINE [address] [place] [address] Jory Polk MD Results 10/14/2024 Refill [facility] [address] [place] [address] Eve Cooper DO 10/14/2024 Telephone [facility] [address] [place] [address] Eve Cooper DO Results 10/08/2024 Population Health Risk Score [facility] Department [address] [phone] Provider, Population Health Generic 09/27/2024 Refill [facility] MED & PEDS 505 [place] [address] Jory Polk MD 09/21/2024 Orders Only [facility] External Provider, [facility] 08/18/2024 Patient Outreach [facility] MED & PEDS [address] [place] [address] Jory Polk MD Care Coordination ([facility] outreach [...] 07/26/2024 9:53 AM EST Plan of Treatment Upcoming Encounters Date Type Department Care Team ([facility] Contact Info) Description 12/31/2024 9:00 AM EDT Office Visit [facility] MED & PEDS 505 [place] [address] Antonia Khan MD 505 [place] [address] Health Maintenance Due Date Last Done Comments [...] 10/14/2024 8:59 AM EDT Dysphagia, unspecified type KNEE WO CONTRAST LEFT Routine 09/21/2024 8:00 AM EST GROSS AND MICROSCOPIC LEVEL 4 Routine 08/20/2024 10:01 AM EST LIPID PANEL, STANDARD Routine 12/15/2023 8:29 AM [...] EDT Narrative 10/14/2024 3:07 PM EDT ? [facility] ?[address] ?[place] [address] ? Fluoroscopy Report ? Signed ? Patient: Kip HaynesRaheem ?MR#: ?? [id number] ? : 1965 ?Acct:[id number] ? Age/Sex: 58 / M ?ADM Date: 03/20/25 ? Loc: HO.XRAY ? Attending Dr: Jory Polk MD ? Ordering Physician: Jory Polk MD ?? Date of Service: 10/14/24 ?? Procedure(s): FL barium swallow ?? Accession Number(s): [id number] ? cc: Jory Polk MD ? EXAMINATION: [...] 03:04 PM EDT RP ? Dictated By: ?Elisha,Mario S MD ? Signed By: ?<Electronically signed by Mario S Elisha, MD in OV> ?10/14/24 1504 ? DD/ 0859 ? TD/TT: 10/14/24 0945 ? Microwave Radio Technician: MSM ? Procedure Note Abimael, Image - 10/14/2024 [place] [address] [facility] [place] [address] Fluoroscopy Report Signed Patient: Gerardo Cuevas#: [id number] : 1965Acct:[id number] Age/Sex: 58 / MADM Date: 10/14/24 Loc: HO.XRAY Attending Dr: Jory Polk MD Ordering Physician: Jory Polk MD Date of Service: 10/14/24 Procedure(s): FL barium swallow Accession Number(s): [id number] cc: Jory Polk MD EXAMINATION: XR BARIUM [...] 10/14/24 1504 DD/ 0859 TD/TT: 10/14/24 0945 Microwave Radio Technician: GAUTMA us Jory Polk MD IMG FLUOROSCOPY PROCEDURES Fi nal Result * MR Knee w/o Contrast Left (09/21/2024 8:00 AM EST) Anatomical Region Laterality Modality Magnetic Resonan ce 09/21/2024 8:00 AM EST Narrative 09/21/2024 10:44 AM EST ? [facility] ?[address] ?[place] [address] ? Magnetic Resonance Report ? Signed ? Patient: Kip Haynes,Raheem ?MR#: ?? [id number] ? : 1965 ?Acct:[id number] ? Age/Sex: 58 / M ?ADM Date: 09/21/24 ? Loc: HO.MRI ? Attending Dr: Anton Sauceda MD ? Ordering Physician: Anton Sauceda MD ?? Date of Service: 09/21/24 ?? Procedure(s): MR knee LT wo con ?? Accession Number(s): [id number] ? cc: Anton Sauceda MD; Jory Polk [...] DD/ 0800 ? TD/TT: 09/21/24 0810 ? Microwave Radio Technician: ? Procedure Note Doncaronter, Image - 09/21/2024 [place] [address] Magnetic Resonance Report Signed Patient: Raheem Cuevas#: [id number] : 1965Acct:[id number] Age/Sex: 58 / MADM Date: 09/21/24 Loc: HO.MRI Attending Dr: Anton Sauceda MD Ordering Physician: Anton Sauceda MD Date of Service: 09/21/24 Procedure(s): MR knee LT wo con Accession Number(s): [id number] cc: Anton Sauceda MD; Jory Polk MD [...] by: Manjeet Guzman MD 09/21/2024 10:42 AM EST Dictated By: Manjeet Guzman MD Signed By: <Electronically signed by Manjeet Guzman MD in OV> 09/21/24 1042 DD/ 0800 TD/TT: 09/21/24 0810 Microwave Radio Technician: [facility] External Provider IMG MRI PROCEDURES Final Result * Gross and Microscopic Level 4 (08/20/2024 10:01 AM EST) 08/20/2024 10:0 1 AM EST 08/20/2024 10:35 AM EST [facility] - 08/23/2024 10:29 AM EST ----- ------- Name: Raheem Cuevas ?Age/Sex: 58/M ? : 1965 Unit#: [id number] ?? Attend Dr: Inocencio Youngblood MD ?Re08/20/24 ?Status: DEP SDC ? Location: HO.SSS ?Disch: ? ----- ------- SPEC : [id number] ?RECD: 08/20/24 ? STATUS: ??SOUT ? REQ NUM: [id number] ? TEJ: 08/20/24-1000 ? SUBM DR: Inocencio [...] however, may not be recoverable following processing. [facility] Copies To: ?? Inocencio Youngblood MD ?? [facility] ?? [address] ?? [place] Page [address] ?? [phone] ? CONTINUED ON NEXT PAGE ----- ------- Name: Raheem Cuevas ?Age/Sex: 58/M ? : 1965 Unit#: [id number] ?? Attend Dr: Inocencio Youngblood MD ?Re08/20/24 ?Status: DEP [facility] ? Location: HO.SSS ?Disch: ? ----- ------- SPEC : [id number] ?RECD: 08/20/24-1034 ? STATUS: ??SOUT ? REQ NUM: [id number] ? TEJ: 08/20/24-1000 ? SUBM DR: Inocencio Youngblood MD ? ENTERED: ??08/20/24-1047 ?SP TYPE: Surgical ? OTHR DR: Jory Polk MD ? ORDERED: ??Gross Micro L4/2 ? Copies To: ??(Continued) ?? Jory Polk MD ?? [address] [facility] ?? [place] [address] ?? [phone] ----- ------- Signed (signature on file) Litzy Kirkland 08/23/24 1029 ? ----- ------- ? END OF REPORT ? us Generic External Data Provider LAB CYTOLOGY ORDE RABLES Final Result [facility] [address] [place] [address] [phone] * (ABNORMAL) Lipid Panel, Standard (12/15/2023 8:29 AM EDT) Triglycerides 66 <150 mg/dL [facility] Comment:Desirable Triglyceri de: less than 150 mg/dLBorderline High Triglyceride 150-199 mg/dLHigh Triglyceride: 200-499 mg/dLVery High Triglyceride: greater than or equal to 5OO mg/dL Cholesterol 188 <200 mg/dL [facility] Comment:Desirable Cholestero l: less than 200 mg/dLBorderline High Cholesterol: 200-239 mg/dLHigh Cholesterol: greater than 239 mg/dL LDL Cholesterol Calculated 105(H) <100 mg/dL [facility] Comment:Desirable LDL: less than 100 mg/dLNear Optimal/Above Optimal LDL: 110- 129 mg/dLBorderline High LDL: 130-159 mg/dLHigh LDL: 160-189 mg/dLVery High LDL: greater than or equal to 190 mg/dL HDL Cholesterol 70 >40 mg/dL [facility] Comment:Desirable HDL: great er than 40 mg/dL Note: This HDL assay may give artificially low results in patients with liver disease. Blood Venous blood specimen / Unknown 12/15/2023 8:29 AM EDT 12/15/2023 2:27 PM EDT us Jory Polk MD LAB BLOOD ORDERABLES Final Re sult Performing Organization Address [facility] Co de Phone Number [facility] [address] [place] [address] [phone] * Hepatitis C Antibody with Reflex to HCV, RNA, Quantitative, Real-Time PCR (12/15/2023 8:24 AM EDT) Hepatitis C Antibody Nonreactive Nonreactive [facility] Comment:Antibodies to HCV no t detected; does not exclude early acuteHCV infection. Blood Venous blood specimen / Unknown 12/15/2023 8:24 AM EDT 12/15/2023 2:27 PM EDT us Jory Polk MD LAB BLOOD ORDERABLES Final Re sult Performing Organization Address [facility] de Phone Number [facility] [address] [place] [phone] * HIV-1/2 Antigen and Antibodies, Fourth Generation, with Reflexes (12/15/2023 8:24 AM EDT) HIV AB/AG Nonreactive Nonreactive [facility] Comment:HIV-1 p24 Ag and/or HIV-1/HIV-2 Ab not detected.A test result that is nonreactive does not exclude thepossibility of exposure to or infection with HIV-1 and/orHIV-2. Nonreactive results in this assay for individualswith prior exposure to HIV-1 and/or HIV-2 may be due toantigen and antibody levels that are below the limit ofdetection of this assay.The [employer] HIV Ag/Ab Combo assay result andsupplemental assay results should be interpreted inconjunction with the patient's clinical presentation,history and other laboratory results. If the results areinconsistent with clinical evidence, additional testing issuggested to confirm the result. Blood Venous blood specimen / Unknown 12/15/2023 8:24 AM EDT 12/15/2023 2:27 PM EDT us Jory Polk MD LAB BLOOD ORDERABLES Final Re sult [facility] [address] [place], [place] [phone] from Last 3 Months or Most Recently Relevant to Health Maintenance [facility] Care Teams Vp Sales Relationship Specialty Start Date End Date Jory Polk MD [address] [place] [address] PCP - General Family Medicine 10/10/23 Katie Courtney [address] [place] [phone] Community Health Worker 05/24/24 Yenny Shaw Tire WorkerBrakeshoe Repairer 07/16/24
--- OUTSIDE RECORDS SUMMARY | 2024-11-16 06:22 | XMS_ITS | Encounter Summary ---
Author Organization [employer] Address 75 [facility] 7t [place] [address] Care Team Providers Care Insurance Adviser Name Role Phone Jory Polk MD Primary Care Provider [phone] Reason for Visit * Reason Onset Date Comments PT1 12/23/2023 Encounter Details Date Type Department Care Team ([facility] st Contact Info) Description 12/23/2023 Telephone [facility] MEDICINE [address] [place] [address] Jory Polk MD 505 [place] [address] PT1 Social History Tobacco Use Types Packs/Day [...] Y/N: Yes Provider name or facility name: [facility] Facility Address: [address] [place] [address] Escort needed: Y/N: No Do you have a wheelchair: Y/N: No If yes- Manual or electric: none Visits: n/a documented in this encounter Plan of Treatment Upcoming Encounters Date Type Department Care Team (Late st Contact Info) Description 12/31/2024 9:00 AM EDT Office Visit [facility] MED & PEDS [address] [place] [address] Antonia Khan MD 505 [place] [address] documented as of this encounter Visit Diagnoses Not on filedocumented in this encounter Additional Health Concerns Assessment Noted Time PHQ-9 Depression Total Score: 15 024 9:20 AM EDT documented as of this encounter Care Teams Insurance Adviser Relationship Specialty Start Date End Date Jory Polk MD [address] [place] [address] PCP - General Family Medicine 10/10/23 Katie Courtney [address] [place] [address] Community Health Worker 05/24/24 Yenny Shaw Bacteriology TechnicianSyrup Mixer Assistant 07/16/24 documented as of this encounter
--- OUTSIDE RECORDS SUMMARY | 2024-11-16 06:22 | XMS_ITS | Encounter Summary ---
Author Organization [employer] Address [address] [facility] 7t [place] [address] Care Team Providers Care Pharmaceutical Botanist Name Role Phone Jory Polk MD Primary Care Provider [phone] Reason for Visit * Reason Onset Date Comments PT1 03/01/2024 Encounter Details Date Type Department Care Team ([facility] st Contact Info) Description 03/01/2024 Telephone [facility] [address] [place] [address] Jory Polk MD 505 [place] [address] PT1 Social History Tobacco Use Types Packs/Day [...] Description 12/31/2024 9:00 AM EDT Office Visit [facility] MED & PEDS 505 [place] [address] Antonia Khan MD 505 [place] [address] documented as of this encounter Visit Diagnoses Not on filedocumented in this encounter Additional Health Concerns Assessment Noted Time PHQ-9 Depression Total Score: 15 024 9:20 AM EDT documented as of this encounter Care Teams Pharmaceutical Botanist Relationship Specialty Start Date End Date Jory Polk MD 230 [place] [address] PCP - General Family Medicine 10/10/23 Katie Courtney [address] [place] [address] Community Health Worker 05/24/24 Yenny Shaw Corporate AccountantBanking Officer 07/16/24 documented as of this encounter
== END 2024-11-16 06:20 | disposition home or self-care (01) ==
LOC: CF 06:19
PROVIDERS: Visit Provider Anesthesiology
DX: Z13.89 Encounter for screening for other disorder (principal)

== ENCOUNTER 2024-11-17 10:01 | Outpatient (REF) | payer MEDICAID, SELFPAY ==
--- OUTSIDE RECORDS SUMMARY | 2024-11-17 11:30 | XMS_ITS | Encounter Summary ---
Author Organization [employer] Address [address] [facility] 7t [place] [address] Care Team Providers Care Commercial Escrow Officer Name Role Phone Jory Polk MD Primary Care Provider [phone] Reason for Visit * Reason Onset Date Comments PT1 08/12/2024 Encounter Details Date Type Department Care Team ([facility] st Contact Info) Description 08/12/2024 Telephone [facility] MEDICINE 230 [place] [address] Jory Polk MD 505 [place] [address] PT1 Social History Tobacco Use Types Packs/Day [...] Y/N: Yes Provider name or facility name: [address] [place] [address] [place] [address] Escort needed: Y/N: Yes Do you have a wheelchair: Y/N: No If yes- Manual or electric: N/A Visits: (3) ( x monthly) documented in this encounter Plan of Treatment Upcoming Encounters Date Type Department Care Team (Late st Contact Info) Description 12/31/2024 9:00 AM EDT Office Visit [facility] MED & PEDS 505 [place], [place] [phone] Antonia Khan MD 505 [place], [place] [phone] documented as of this encounter Visit Diagnoses Not on filedocumented in this encounter Additional Health Concerns Assessment Noted Time PHQ-9 Depression Total Score: 23 024 12:05 PM EDT documented as of this encounter Care Teams Commercial Escrow Officer Relationship Specialty Start Date End Date Jory Polk MD 230 [place] [address] PCP - General Family Medicine 10/10/23 Katie Courtney [address] [place] [address] Community Health Worker 05/24/24 Yenny Shaw Bottom BufferContent Editor 07/16/24 documented as of this encounter
--- OUTSIDE RECORDS SUMMARY | 2024-11-17 11:30 | XMS_ITS | Encounter Summary ---
Author Organization [employer] Address [address] [facility] 7t [place] [address] Care Team Providers Care Financial Auditor Name Role Phone Jory Polk MD Primary Care Provider [phone] Reason for Visit * Reason Onset Date Comments Referral 07/26/2024 Encounter Details Date Type Department Care Team ([facility] st Contact Info) Description 07/26/2024 Telephone C [facility] MED & PEDS 505 [place], [place] [phone] Jory Polk MD 505 [place] [address] Referral Social History Tobacco Use Types Packs/Day [...] with others, in a hotel, in a correction, living outside on the street, on a [...] from pt calling to inform called he's relations specialist and was advice to contact pcp officefor a new referral and last xray results to be sent to orthopedic. , phone number ,DR Anton Sauceda MD. Please call pt to clarify. documented in this encounter Plan of Treatment Upcoming Encounters Date Type Department Care Team (Late st Contact Info) Description 12/31/2024 9:00 AM EDT Office Visit [facility] MED & PEDS 505 [place], [place] [phone] Antonia Khan MD [address] [place] [address] documented as of this encounter Visit Diagnoses Not on filedocumented in this encounter Additional Health Concerns Assessment Noted Time PHQ-9 Depression Total Score: 23 024 12:05 PM EDT documented as of this encounter Care Teams Financial Auditor Relationship Specialty Start Date End Date Jory Polk MD [address] [place] [address] PCP - General Family Medicine 10/10/23 Katie Courtney [address] [place] [address] Community Health Worker 05/24/24 Yenny Shaw Code Enforcement SupervisorAnesthesia Technician 07/16/24 documented as of this encounter
--- OUTSIDE RECORDS SUMMARY | 2024-11-17 11:30 | XMS_ITS | Encounter Summary ---
Author Organization [employer] Address 75 [facility] 7t [place] [address] Care Team Providers Care Forestry Foreman Name Role Phone Jory Polk MD Primary Care Provider [phone] Reason for Visit * Reason Onset Date Comments PT-1 04/13/2024 Encounter Details Date Type Department Care Team ([facility] st Contact Info) Description 04/13/2024 Telephone [facility] MEDICINE 230 [place] [address] Jory Polk MD 505 [place] [address] PT-1 Social History Tobacco Use Types Packs/Day [...] Y/N: Yes Provider name or facility name: [facility] Facility Address: [address] [place] [address] Escort needed: Y/N: No Do you have a wheelchair: Y/N: No If yes- Manual or electric: N/A Visits: 1 time monthly documented in this encounter Plan of Treatment Upcoming Encounters Date Type Department Care Team ([facility] Contact Info) Description 12/31/2024 9:00 AM EDT Office Visit [facility] CH[facility] MED & PEDS 505 [place] [address] Antonia Khan MD 505 [place] [address] documented as of this encounter Visit Diagnoses Not on filedocumented in this encounter Additional Health Concerns Assessment Noted Time PHQ-9 Depression Total Score: 15 024 9:20 AM EDT documented as of this encounter Care Teams Forestry Foreman Relationship Specialty Start Date End Date Jory Polk MD 230 [place] [address] PCP - General Family Medicine 10/10/23 Katie Courtney [address] [place] [address] Community Health Worker 05/24/24 Yenny Shaw Mortar WorkerMail Order Sorter 07/16/24 documented as of this encounter
--- OUTSIDE RECORDS SUMMARY | 2024-11-17 11:30 | XMS_ITS | Encounter Summary ---
Author Organization [employer] Address [address] [facility] 7t [place] [address] Care Team Providers Care Peanut Picker Name Role Phone Jory Polk MD Primary Care Provider [phone] Reason for Visit * Reason Onset Date Comments PT-1 08/12/2024 Encounter Details Date Type Department Care Team ([facility] st Contact Info) Description 08/12/2024 Telephone [facility] MEDICINE 230 [place] [address] Jory Polk MD 505 [place] [address] PT-1 Social History Tobacco Use Types Packs/Day [...] Y/N: Yes Provider name or facility name: [address] [place] [address] Dr Page [facility] [address] Escort needed: Y/N: No Do you have a wheelchair: Y/N: No Visits: (3) ( x monthly) Pt stated appointment is for 08/20/2024 documented in this encounter Plan of Treatment Upcoming Encounters Date Type Department Care Team ([facility] st Contact Info) Description 12/31/2024 9:00 AM EDT Office Visit [facility] CHC MED & PEDS 505 [place] [address] Antonia Khan MD 505 [place] [address] documented as of this encounter Visit Diagnoses Not on filedocumented in this encounter Additional Health Concerns Assessment Noted Time PHQ-9 Depression Total Score: 23 024 12:05 PM EDT documented as of this encounter Care Teams Peanut Picker Relationship Specialty Start Date End Date Jory oPlk MD 230 [place] [address] PCP - General Family Medicine 3/15/24 Katie Courtney [address] [place] [address] Community Health Worker 05/24/24 Yenny Shaw Mother RepairerSourcing Engineer 07/16/24 documented as of this encounter
[2024-11-17 11:31] LABS: MANUAL DIFF FLAG NO
--- OUTSIDE RECORDS SUMMARY | 2024-11-17 11:31 | XMS_ITS | Clinical Summary ---
Author Organization [employer] Address [address] [place] [address] 7t [place] [address] Care Team Providers Care Senior Health Consultant Name Role Phone Jory Polk MD Primary Care Provider [phone] Allergies No known active allergies Medications * [...] D AL ACOSTARSE 4 Active HYDROcodone-filomena taminophen ([place]) 5-325 MG tablet TOME ALEKS TABLETA POR [...] intervention , Patient to reach out to [facility] team as needed, Patient to reach out to [facility] as needed, and Patient to call [facility] for OP and psych med management intake. We discussed that if by end of summer he has not been connected to psych medication management he will follow up with [facility] for alternative options Assessment & Plan (11/17/2023 3:53 PM EDT): New/Additional Services needed PCP management Off-site services for Behavioral Health Integration Plan Internal Follow up with [facility], Cold handoff to [facility]/FP, Follow up with [facility] on 10/20/23 External Patient to reach out to [facility] CB for services around OP BH therapy and psych medication management Patient Self Plan Patient to utilize skills provided in intervention , Patient to reach out to [facility] team as needed, and Patient to reach out to [facility] as needed Assessment & Plan (10/11/2023 1:54 AM EDT): Hx of bipolar disorder with no current psychiatric or therapeutic care in place. Plan is to initiate the process of setting up the patient with the necessary psychiatric and medical services, with a request for services to be provided in [place]. Encounters Date Type Department Care Team Description 11/09/2024 Telephone [facility] MED & PEDS 505 [place] [address] Jory Polk MD Nurse Triage 10/22/2024 Telephone [facility] MEDICINE [address] [place] [address] Jory Polk MD Results 10/14/2024 Refill [facility] [address] [place] [address] Eve Cooper DO 10/14/2024 Telephone [facility] [address] [place] [address] Eve Cooper DO Results 10/08/2024 Population Health Risk Score [facility] Department [address] [place] [phone] Provider, Population Health Generic 09/27/2024 Refill [facility] MED & PEDS [address] [place] [address] Jory Polk MD 09/21/2024 Orders Only [facility] External Provider, [facility] from Last 3 Months Immunizations Name Administration [...] [facility] 505 [place] [address] Antonia Khan MD 505 [place] [address] Health Maintenance Due Date Last Done Comments [...] 8:59 AM EDT Dysphagia, unspecified type MR ROHITH ROSENBERG CONTRAST LEFT Routine 09/21/2024 8:00 AM EST [...] EDT Narrative 10/14/2024 3:07 PM EDT ? [facility] ?[address] ?[place] [address] ? Fluoroscopy Report ? Signed ? Patient: Kip Haynes,Raheem ?MR#: ?? [id number] ? : 1965 ?Acct:[id number] ? Age/Sex: 58 / M ?ADM Date: 03/20/25 ? Loc: HO.XRAY ? Attending Dr: Jory Polk MD ? Ordering Physician: Jory Polk MD ?? Date of Service: 10/14/24 ?? Procedure(s): FL barium swallow ?? Accession Number(s): [id number] ? cc: Jory Polk MD ? EXAMINATION: [...] DD/ 0859 ? TD/TT: 10/14/24 0945 ? Runner Out: MSM ? Procedure Note Abimael, Image - 10/14/[address] [address] Fluoroscopy Report Signed Patient: Raheem Cuevas#: [id number] : 1965Acct:[id number] Age/Sex: 58 / MADM Date: 10/14/24 Loc: SHIRA Attending Dr: Jory Polk MD Ordering Physician: Jory Polk MD Date of Service: 10/14/24 Procedure(s): FL barium swallow Accession Number(s): [id number] cc: Jory Polk MD EXAMINATION: XR BARIUM [...] 10/14/24 1504 DD/ 0859 TD/TT: 10/14/24 0945 Runner Out: [facility] us Jory Polk MD IMG FLUOROSCOPY PROCEDURES Fi nal Result * MR Knee w/o Contrast Left (09/21/2024 8:00 AM EST) Anatomical Region Laterality Modality Magnetic Resonan ce 09/21/2024 8:00 AM EST Narrative 09/21/2024 10:44 AM EST ? [facility] ?[address] ?[place] [address] ? Magnetic Resonance Report ? Signed ? Patient: Garmenlinn Herrmanneno,Raheem ?MR#: ?? [id number] ? : 1965 ?Acct:[id number] ? Age/Sex: 58 / M ?ADM Date: 09/21/24 ? Loc: HO.MRI ? Attending Dr: Anton Sauceda MD ? Ordering Physician: Anton Sauceda MD ?? Date of Service: 09/21/24 ?? Procedure(s): MR knee LT wo con ?? Accession Number(s): [id number] ? cc: Anton Sauceda MD; Jory Polk [...] DD/ 0800 ? TD/TT: 09/21/24 0810 ? Runner Out: ? Procedure Note Doncaronter, Image - 09/21/[address] [address] Magnetic Resonance Report Signed Patient: Gerardo Cuevas#: [id number] : 1965Acct:[id number] Age/Sex: 58 / MADM Date: 09/21/24 Loc: HO.MRI Attending Dr: Anton Sauceda MD Ordering Physician: Anton Sauceda MD Date of Service: 09/21/24 Procedure(s): MR knee LT wo con Accession Number(s): [id number] cc: Anton Sauceda MD; Jory Polk MD [...] 09/21/24 1042 DD/ 0800 TD/TT: 09/21/24 0810 Runner Out: [facility] External Provider IMG MRI PROCEDURES Final Result * Gross and Microscopic Level 4 (08/20/2024 10:01 AM EST) 08/20/2024 10:0 1 AM EST 08/20/2024 10:35 AM EST [facility] - 08/23/2024 10:29 AM EST ----- ------- Name: Raheem Cuevas ?Age/Sex: 58/M ? : 1965 Unit#: [id number] ?? Attend Dr: Inocencio Youngblood MD ?Re08/20/24 ?Status: DEP SDC ? Location: HO.SSS ?Disch: ? ----- ------- SPEC : [id number] ?RECD: 08/20/24-1034 ? STATUS: ??SOUT ? REQ NUM: [id number] ? TEJ: 08/20/24-1000 ? SUBM DR: Inocencio [...] however, may not be recoverable following processing. [facility] Copies To: ?? Inocencio Youngblood MD ?? [facility] ?? [address] ?? [place] [phone] ?? [phone] ? CONTINUED ON NEXT PAGE ----- ------- Name: Raheem Cuevas ?Age/Sex: 58/M ? : 1965 Unit#: [id number] ?? Attend Dr: Inocencio Youngblood MD ?Re08/20/24 ?Status: DEP [facility] ? Location: HO.SSS ?Disch: ? ----- ------- SPEC : [id number] ?RECD: 08/20/24-5 ? STATUS: ??SOUT ? REQ NUM: [id number] ? TEJ: 08/20/24-1001 ? SUBM DR: Inocencio Youngblood MD ? ENTERED: ??08/20/24-1047 ?SP TYPE: Surgical ? OTHR DR: Jory Polk MD ? ORDERED: ??Gross Micro L4/2 ? Copies To: ??(Continued) ?? Jory Polk MD ?? [address] [facility] ?? [place] [address] ?? [phone] ----- ------- Signed (signature on file) Litzy Isael 08/23/24 1029 ? ----- ------- ? END OF REPORT ? us Generic External Data Provider LAB CYTOLOGY ORDE RABLES Final Result Performing Organization Address [facility] Co de Phone Number [facility] [address] [place] [address] [phone] * (ABNORMAL) Lipid Panel, Standard (12/15/2023 8:29 AM EDT) Triglycerides 66 <150 mg/dL [facility] Comment:Desirable Triglyceri de: less than 150 mg/dLBorderline High Triglyceride 150-199 mg/dLHigh Triglyceride: 200-499 mg/dLVery High Triglyceride: greater than or equal to 5OO mg/dL Cholesterol 188 <200 mg/dL [facility] Comment:Desirable Cholestero l: less than 200 mg/dLBorderline High Cholesterol: 200-239 mg/dLHigh Cholesterol: greater than 239 mg/dL LDL Cholesterol Calculated 105(H) <100 mg/dL [facility] Comment:Desirable LDL: less than 100 mg/dLNear Optimal/Above Optimal LDL: 110- 129 mg/dLBorderline High LDL: 130-159 mg/dLHigh LDL: 160-189 mg/dLVery High LDL: greater than or equal to 190 mg/dL HDL Cholesterol 70 >40 mg/dL [facility] Comment:Desirable HDL: great er than 40 mg/dL Note: This HDL assay may give artificially low results in patients with liver disease. Blood Venous blood specimen / Unknown 12/15/2023 8:29 AM EDT 12/15/2023 2:27 PM EDT us Jory Polk MD LAB BLOOD ORDERABLES Final Re sult Performing Organization Address [facility] Co de Phone Number [facility] [address] [place] [address] [phone] * Hepatitis C Antibody with Reflex to HCV, RNA, Quantitative, Real-Time PCR (12/15/2023 8:24 AM EDT) Hepatitis C Antibody Nonreactive Nonreactive [facility] Comment:Antibodies to HCV no t detected; does not exclude early acuteHCV infection. Blood Venous blood specimen / Unknown 12/15/2023 8:24 AM EDT 12/15/2023 2:27 PM EDT Jory Polk MD LAB BLOOD ORDERABLES Final Re sult Performing Organization Address [facility]/ZIP Co de Phone Number [facility] [address] [place] [address] [phone] * HIV-1/2 Antigen and Antibodies, Fourth Generation, with Reflexes (12/15/2023 8:24 AM EDT) HIV AB/AG Nonreactive Nonreactive [facility] Comment:HIV-1 p24 Ag and/or HIV-1/HIV-2 Ab not detected.A test result that is nonreactive does not exclude thepossibility of exposure to or infection with HIV-1 and/orHIV-2. Nonreactive results in this assay for individualswith prior exposure to HIV-1 and/or HIV-2 may be due toantigen and antibody levels that are below the limit ofdetection of this assay.The IntercastingniSEJENT HIV Ag/Ab Combo assay result andsupplemental assay results should be interpreted inconjunction with the patient's clinical presentation,history and other laboratory results. If the results areinconsistent with clinical evidence, additional testing issuggested to confirm the result. Blood Venous blood specimen / Unknown 12/15/2023 8:24 AM EDT 12/15/2023 2:27 PM EDT us Jory Polk MD LAB BLOOD ORDERABLES Final Re sult Performing Organization Address City/[facility]/ZIP Co de Phone Number [facility] [address] [place] [address] [phone] from Last 3 Months or Most Recently Relevant to Health Maintenance [place] [address] [place] [address] C3 Care Teams Senior Health Consultant Relationship Specialty Start Date End Date Jory Polk MD [address] [place] [address] PCP - General Family Medicine 10/10/23 Katie Courtney [address] [place] [address] Community Health Worker 05/24/24 Yenny Shaw Care Administrative TechFire Management Officer 07/16/24
--- OUTSIDE RECORDS SUMMARY | 2024-11-17 11:31 | XMS_ITS | Encounter Summary ---
Author Organization [employer] Address [address] [facility] 7t [place] [address] Care Team Providers Care Automobile Club Information Clerk Name Role Phone Jory Polk MD Primary Care Provider [phone] Reason for Visit * Reason Onset Date Comments PT-1 02/10/2024 Encounter Details Date Type Department Care Team ([facility] st Contact Info) Description 02/10/2024 Telephone [facility] MEDICINE 230 [place] [address] Jory Polk MD 505 [place] [address] PT-1 Social History Tobacco Use Types Packs/Day [...] with others, in a hotel, in a group home, living outside on the street, on [...] Y/N: Yes Provider name or facility name: [facility] Facility Address: [address] [place] [address] Escort needed: Y/N: No Do you have a wheelchair: Y/N: No If yes- Manual or electric: N/A Visits: 2 times monthly documented in this encounter Plan of Treatment Upcoming Encounters Date Type Department Care Team ([facility] st Contact Info) Description 12/31/2024 9:00 AM EDT Office Visit [facility] MED & PEDS 505 [place] [address] Antonia Khan MD 505 [place] [address] documented as of this encounter Visit Diagnoses Not on filedocumented in this encounter Additional Health Concerns Assessment Noted Time PHQ-9 Depression Total Score: 15 024 9:20 AM EDT documented as of this encounter Care Teams Automobile Club Information Clerk Relationship Specialty Start Date End Date Jory Polk MD [address] [place] [address] PCP - General Family Medicine 10/10/23 Katie Courtney [address] [place] [address] Community Health Worker 05/24/24 Yenny Shaw Testing CoordinatorOven Tender Bagels 07/16/24 documented as of this encounter
--- OUTSIDE RECORDS SUMMARY | 2024-11-17 11:31 | XMS_ITS | Encounter Summary ---
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 EFFECTIVE SINCE 05/28/2023 documented in this encounter Plan of Treatment Upcoming Encounters Date Type Department Care Team ([facility] Contact Info) Description 12/31/2024 9:00 AM EDT Office Visit [facility] MED & PEDS 505 [place], [place] [phone] Antnoia Khan MD 505 [place] [address] documented as of this encounter Visit Diagnoses Not on filedocumented in this encounter Care Teams Spine Supervisor Relationship Specialty Start Date End Date Jory Polk MD [address] [place] [address] PCP - General Family Medicine 10/10/23 Katie Courtney [address] [place] [address] Community Health Worker 05/24/24 Yenny Shaw Office Machine ServicerHousehold Chores 07/16/24 documented as of this encounter
--- OUTSIDE RECORDS SUMMARY | 2024-11-17 11:31 | XMS_ITS | Encounter Summary ---
Author Organization [employer] Address 75 [facility] 7t [place] [address] Care Team Providers Care Fur Dyer Name Role Phone Jory Polk MD Primary Care Provider [phone] Reason for Visit * Reason Onset Date Comments PT1 12/23/2023 Encounter Details Date Type Department Care Team ([facility] st Contact Info) Description 12/23/2023 Telephone [facility] MEDICINE [address] [place] [address] Jory Polk MD 505 [place] [address] PT1 Social History Tobacco Use Types Packs/Day [...] Y/N: Yes Provider name or facility name: [facility] Facility Address: [address] [place] [address] Escort needed: Y/N: No Do you have a wheelchair: Y/N: No If yes- Manual or electric: none Visits: n/a documented in this encounter Plan of Treatment Upcoming Encounters Date Type Department Care Team (Late st Contact Info) Description 12/31/2024 9:00 AM EDT Office Visit [facility] MED & PEDS [address] [place] [address] Antonia Khan MD 505 [place] [address] documented as of this encounter Visit Diagnoses Not on filedocumented in this encounter Additional Health Concerns Assessment Noted Time PHQ-9 Depression Total Score: 15 024 9:20 AM EDT documented as of this encounter Care Teams Fur Dyer Relationship Specialty Start Date End Date Jory Polk MD [address] [place] [address] PCP - General Family Medicine 10/10/23 Katie Courtney [address] [place] [address] Community Health Worker 05/24/24 Yenny Shaw Dining Room CashierSenior Ui Developer 07/16/24 documented as of this encounter
--- OUTSIDE RECORDS SUMMARY | 2024-11-17 11:31 | XMS_ITS | Encounter Summary ---
Author Organization [employer] Address 75 [facility] 7t [place] [address] Care Team Providers Care Academic Program Specialist Name Role Phone Jory Polk MD Primary Care Provider [phone] Reason for Visit * Reason Onset Date Comments Pt1 10/15/2023 Encounter Details Date Type Department Care Team ([facility] st Contact Info) Description 10/15/2023 Telephone [facility] MEDICINE [address] [place] [address] Jory Polk MD 505 [place] [address] Pt1 Social History Tobacco Use Types Packs/Day [...] Y/N: Yes Provider name or facility name: [facility] Facility Address: [address] [place] [address] Escort needed: Y/N: No Do you have a wheelchair: Y/N: No If yes- Manual or electric: No Visits: All future Appt's documented in this encounter Plan of Treatment Upcoming Encounters Date Type Department Care Team ([facility] st Contact Info) Description 12/31/2024 9:00 AM EDT Office Visit [facility] MED & PEDS 505 [place] [address] Antonia Khan MD 505 [place] [address] documented as of this encounter Visit Diagnoses Not on filedocumented in this encounter Additional Health Concerns Assessment Noted Time PHQ-9 Depression Total Score: 20 024 12:57 PM EDT documented as of this encounter Care Teams Academic Program Specialist Relationship Specialty Start Date End Date Jory Polk MD [address] [place] [address] PCP - General Family Medicine 10/10/23 Katie Courtney [address] [place] [address] Community Health Worker 05/24/24 Yenny Shaw Machine StonecutterBinder Cutter 07/16/24 documented as of this encounter
--- OUTSIDE RECORDS SUMMARY | 2024-11-17 11:31 | XMS_ITS | Encounter Summary ---
Author Organization [employer] Address 75 [facility] 7t [place] [address] Care Team Providers Care Remote Operations Producer Name Role Phone Jory Polk MD Primary Care Provider [phone] Reason for Visit * Reason Onset Date Comments PT-1 12/30/2023 Encounter Details Date Type Department Care Team ([facility] st Contact Info) Description 12/30/2023 Telephone [facility] MEDICINE [address] [place] [address] Jory Polk MD 505 [place] [address] PT-1 Social History Tobacco Use Types Packs/Day [...] Y/N: Yes Provider name or facility name: [facility] Facility Address: [address] [place] [address] Dr Camilo GATICA [address] Escort needed: Y/N: No Do you have a wheelchair: Y/N: No If yes- Manual or electric: N/A Visits: 3 times monthly documented in this encounter Plan of Treatment Upcoming Encounters Date Type Department Care Team (Late st Contact Info) Description 12/31/2024 9:00 AM EDT Office Visit [facility] MED & PEDS 505 [place], [place] [phone] Antonia Khan MD 505 [place], [place] [phone] documented as of this encounter Visit Diagnoses Not on filedocumented in this encounter Additional Health Concerns Assessment Noted Time PHQ-9 Depression Total Score: 15 03/26/ 024 9:20 AM EDT documented as of this encounter Care Teams Remote Operations Producer Relationship Specialty Start Date End Date Jory Polk MD [address] [place] [address] PCP - General Family Medicine 10/10/23 Katie Courtney [address] [place] [address] Community Health Worker 05/24/24 Yenny Shaw Non Destructive Testing SpecialistMarine Mammal Trainer 07/16/24 documented as of this encounter
--- OUTSIDE RECORDS SUMMARY | 2024-11-17 11:31 | XMS_ITS | Encounter Summary ---
Author Organization [employer] Address 75 [facility] 7t [place] [address] Care Team Providers Care Floor Steward/Stewardess Name Role Phone Jory Polk MD Primary Care Provider [phone] Reason for Visit * Reason Onset Date Comments Referral 06/10/2024 Encounter Details Date Type Department Care Team ([facility] st Contact Info) Description 06/10/2024 Telephone [facility] MEDICINE [address] [place] [address] Jory Polk MD 505 [place] [address] Referral Social History Tobacco Use Types Packs/Day [...] Y/N: Yes Provider name or facility name: [facility] Facility Address: [address] [place] [address] Escort needed: Y/N: No Do you have a wheelchair: Y/N: No ?? If yes- Manual or electric: Visits: (2) ( x monthly) documented in this encounter Plan of Treatment Upcoming Encounters Date Type Department Care Team (Late st Contact Info) Description 12/31/2024 9:00 AM EDT Office Visit [facility] MED & PEDS [address] [place] [address] Antonia Khan MD 505 [place] [address] documented as of this encounter Visit Diagnoses Not on filedocumented in this encounter Additional Health Concerns Assessment Noted Time PHQ-9 Depression Total Score: 23 024 12:05 PM EDT documented as of this encounter Care Teams Floor Steward/Stewardess Relationship Specialty Start Date End Date Jory Polk MD 230 [place] [address] PCP - General Family Medicine 10/10/23 Katie Courtney [address] [place] [address] Community Health Worker 05/24/24 Yenny Shaw Chart SnatcherDomestic Technician 07/16/24 documented as of this encounter
--- OUTSIDE RECORDS SUMMARY | 2024-11-17 11:31 | XMS_ITS | Encounter Summary ---
Author Organization [email or web address] Address 75 [facility] 7t [place] [address] Care Team Providers Care Western Tack Assembly Line Worker Name Role Phone Jory Polk MD Primary Care Provider [phone] Reason for Visit * Reason Onset Date Comments PT-1 10/30/2023 Encounter Details Date Type Department Care Team ([facility] st Contact Info) Description 10/30/2023 Telephone [facility] MEDICINE [address] [place] [address] Jory Polk MD 505 [place] [address] PT-1 Social History Tobacco Use Types Packs/Day [...] Y/N: Yes Provider name or facility name: [facility] Facility Address: [address] [place] [address] Escanil needed: Y/N: No Do you have a wheelchair: Y/N: No If yes- Manual or electric: Visits: 2 monthly Patient calling requesting PT1 Home Address verified: Y/N: Yes Provider name or facility name: [facility] Facility Address: [address] [place] [address] [facility] needed: Y/N: No Do you have a wheelchair: Y/N: No If yes- Manual or electric: Visits: 3 monthly documented in this encounter Plan of Treatment Upcoming Encounters Date Type Department Care Team ([facility] st Contact Info) Description 12/31/2024 9:00 AM EDT Office Visit [facility] MED & PEDS [address] [place] [address] Antonia Khan MD [address] [place] [address] documented as of this encounter Visit Diagnoses Not on filedocumented in this encounter Additional Health Concerns Assessment Noted Time PHQ-9 Depression Total Score: 15 10/20/ 024 9:20 AM EDT documented as of this encounter Care Teams Western Tack Assembly Line Worker Relationship Specialty Start Date End Date Jory Polk MD [address] [place] [address] PCP - General Family Medicine 10/10/23 Katie Courtney [address] [place] [address] Community Health Worker 05/24/24 Yenny Shaw Inside Sales ConsultantBillet Assembler 07/16/24 documented as of this encounter
--- OUTSIDE RECORDS SUMMARY | 2024-11-17 11:31 | XMS_ITS | Encounter Summary ---
Author Organization [employer] Address 75 [facility] 7t [place] [address] Care Team Providers Care Dredge Lever Operator Name Role Phone Jory Polk MD Primary Care Provider [phone] Reason for Visit * Reason Onset Date Comments PT1 12/02/2023 Encounter Details Date Type Department Care Team ([facility] st Contact Info) Description 12/02/2023 Telephone [facility] MED [facility] PEDS [address] [place], [place] [phone] Jory Polk MD 505 [place] [address] PT1 Social History Tobacco Use Types Packs/Day [...] being denied * Telephone Encounter - Chantal Grion RN - 12/05/2023 11:14 AM EDT PT 1 was submitted one hour ago and request was made 1 day ago. Insurance will notify pt with decision. * Telephone Encounter - Liv Estrada - 12/05/2023 10:40 AM EDT Tc from pt calling in regards to PT1. States called [employer] and was advised did not receive request and provider will need to call to expedite PT1 for 12/07. * Telephone Encounter - Sammi Alanis - 12/05/2023 9:49 AM EDT PT-1 submitted for patient. They will receive a letter of approval or denial in the mail. * Telephone Encounter - Mk Taylor - 12/04/2023 11:51 AM EDT Tc from pt requesting status on PT-1, technical document writer did advise can take 24 hrs up to a week, pt stated they have a MRI scheduled for 12/08/23. Also advised can take another week for insurance approval. Pt verbalizes understanding. * Telephone Encounter - Polina Luis - 12/02/2023 12:33 PM EDT Patient calling requesting PT1 Home Address verified: Y/N: Yes Provider name or facility name: [facility] Facility Address: [address] [place] [address] Escort needed: Y/N: No Do you have a wheelchair: Y/N: No If yes- Manual or electric: no Visits: 2-3 visit Appt: 12/08/23 at 8 am documented in this encounter Plan of Treatment Upcoming Encounters Date Type Department Care Team ([facility] st Contact Info) Description 12/31/2024 9:00 AM EDT Office Visit [facility] MED & PEDS [address] [place] [address] Antonia Khan MD 505 [place] [address] documented as of this encounter Visit Diagnoses Not on filedocumented in this encounter Additional Health Concerns Assessment Noted Time PHQ-9 Depression Total Score: 15 024 9:20 AM EDT documented as of this encounter Care Teams Dredge Lever Operator Relationship Specialty Start Date End Date Jory Polk MD [address] [place] [address] PCP - General Family Medicine 10/10/23 Katie Courtney [address] [place] [address] Community Health Worker 05/24/24 Yenny Shaw Head Field Hockey CoachQuality Assurance Test Program Manager 07/16/24 documented as of this encounter
--- OUTSIDE RECORDS SUMMARY | 2024-11-17 11:31 | XMS_ITS | Encounter Summary ---
Author Organization [employer] Address [address] [facility] 7t [place] [address] Care Team Providers Care Sheet Mill Supervisor Name Role Phone Jory Polk MD Primary Care Provider [phone] Reason for Visit * Reason Onset Date Comments FYI 03/22/2024 Encounter Details Date Type Department Care Team ([facility] st Contact Info) Description 03/22/2024 Telephone [facility] MEDICINE [address] [place] [address] Jory Polk MD [address] [place] [address] FYI Social History Tobacco Use Types Packs/Day [...] any questions you can contact pt at [phone]. 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) documented in this encounter Plan of Treatment Upcoming Encounters Date Type Department Care Team (Late st Contact Info) Description 12/31/2024 9:00 AM EDT Office Visit [facility] MED & PEDS [address] [place] [address] Antonia Khan MD 505 [place] [address] documented as of this encounter Visit Diagnoses Not on filedocumented in this encounter Additional Health Concerns Assessment Noted Time PHQ-9 Depression Total Score: 15 024 9:20 AM EDT documented as of this encounter Care Teams Sheet Mill Supervisor Relationship Specialty Start Date End Date Jory Polk MD [address] [place] [address] PCP - General Family Medicine 10/10/23 Katie Courtney [address] [place] [address] Community Health Worker 05/24/24 Yenny Shaw Fiber TechnologistPlastic Press Operator 07/16/24 documented as of this encounter
--- OUTSIDE RECORDS SUMMARY | 2024-11-17 11:31 | XMS_ITS | Encounter Summary ---
Author Organization [employer] Address 75 [facility] 7t [place] [address] Care Team Providers Care Shoes Salesperson Name Role Phone Jory Polk MD Primary Care Provider [phone] Reason for Visit * Reason Onset Date Comments PT-1 03/11/2024 Encounter Details Date Type Department Care Team ([facility] st Contact Info) Description 03/11/2024 Telephone [facility] MEDICINE [address] [place] [address] Jory Polk MD 505 [place] [address] PT-1 Social History Tobacco Use Types Packs/Day [...] Y/N: Yes Provider name or facility name: [facility] Facility Address: [address] [place] [address] Escort needed: Y/N: No Do you have a wheelchair: Y/N: No Visits: All future appt's Pt has a future appt on 04/01 @ 8 Patient calling requesting PT1 Home Address verified: Y/N: Yes [facility] Facility Address: [address] [place] [address] Escort needed: Y/N: No Do you have a wheelchair: Y/N: No If yes- Manual or electric: no Visits: 3 appt on 04/16 @ 10:15 documented in this encounter Plan of Treatment Upcoming Encounters Date Type Department Care Team (Late st Contact Info) Description 12/31/2024 9:00 AM EDT Office Visit [facility] MED & PEDS 505 [place], [place] [phone] Antonia Khan MD 505 [place] [address] documented as of this encounter Visit Diagnoses Not on filedocumented in this encounter Additional Health Concerns Assessment Noted Time PHQ-9 Depression Total Score: 15 10/20/ 024 9:20 AM EDT documented as of this encounter Care Teams Shoes Salesperson Relationship Specialty Start Date End Date Jory Polk MD [address] [place] [address] PCP - General Family Medicine 10/10/23 Katie Courtney [address] [place] [address] Community Health Worker 05/24/24 Yenny Shaw Veterinary Poultry InspectorVocational Case Manager 07/16/24 documented as of this encounter
--- OUTSIDE RECORDS SUMMARY | 2024-11-17 11:31 | XMS_ITS | Encounter Summary ---
Author Organization [employer] Address 75 [facility] 7t [place] [address] Care Team Providers Care Project Manager Interior Design Name Role Phone Jory Polk MD Primary Care Provider [phone] Reason for Visit * Reason Onset Date Comments PT1 03/01/2024 Encounter Details Date Type Department Care Team ([facility] st Contact Info) Description 03/01/[address] [facility] MEDICINE [address] [place] [address] Jory Polk MD 505 [place] [address] PT1 Social History Tobacco Use Types Packs/Day [...] 9:00 AM EDT Office Visit [facility] MED & PEDS 505 [place] [address] Antonia Khan MD 505 [place] [address] documented as of this encounter Visit Diagnoses Not on filedocumented in this encounter Additional Health Concerns Assessment Noted Time PHQ-9 Depression Total Score: 15 024 9:20 AM EDT documented as of this encounter Care Teams Project Manager Interior Design Relationship Specialty Start Date End Date Jory Polk MD [address] [place] [address] PCP - General Family Medicine 10/10/23 Katie Courtney [address] [place] [address] Community Health Worker 05/24/24 Yenny Shaw Car TracerDeflash And Wash Operator 07/16/24 documented as of this encounter
[2024-11-17 11:51] LABS: Basophils Percent Auto 0.4 % (0-2); Eosinophils Absolute Auto 0.1 X10*3/uL (0.0-0.4); Eosinophils Percent Auto 2.1 % (0-4); Hemoglobin 11.9 g/dl (14.0-18.0); Imm Gran Abs Auto 0.02 X10*3/uL (0.00-0.03); Imm Gran Pct Auto 0.3 % (0.0-0.4); Lymphocytes Absolute Auto 1.6 X10*3/uL (1.2-4.9); Lymphocytes Percent Auto 23.7 % (20-40); Mean Corpuscular HGB Conc 31.3 g/dl (31.0-36.0); Mean Corpuscular Hemoglobin 23.6 pg (27.0-33.0); Mean Corpuscular Volume 75.4 fL (80.0-98.0); Mean Platelet Volume 10.7 fL (9.4-12.4); Monocytes Absolute Auto 0.6 X10*3/uL (0.1-1.2); Monocytes Percent Auto 9.5 % (2-11); Neutrophils Absolute Auto 4.3 x10*3/uL (2.0-8.3); Platelet Count 230 X10*3/uL (160-400); Red Blood Count 5.04 X10*6/uL (4.60-5.80); Red Cell Distribution Width 16.5 % (11.0-16.0); White Blood Count 6.8 X10*3/uL (4.8-10.8)
[2024-11-17 11:54] LABS: Estimated Average Glucose 120 mg/dL; Hemoglobin A1C 128.6812 umol/L; Hemoglobin A1c % 5.8 % (<6.0); Total Hemoglobin (HGBA1C) 3185.7416 umol/L
[2024-11-17 12:26] LABS: Alanine Aminotransferase 49 U/L (0-40); Albumin Level 4.2 g/dL (3.5-5.0); Alkaline Phosphatase 119 U/L (39-117); Anion Gap 9 (12-20); Aspartate Amino Transferase 41 U/L (5-37); Bilirubin Direct 0.1 mg/dL (0.0-0.5); Bilirubin Total 0.5 mg/dL (0.0-1.0); Blood Urea Nitrogen 11 mg/dL (9-16); Calcium 9.3 mg/dL (8.4-10.2); Carbon Dioxide 29 mmol/L (22-29); Chloride 108 mmol/L (96-108); Estimated Glomerular Filt Rate > 60; Glucose Random 95 mg/dL (60-115); Potassium 4.5 mmol/L (3.3-5.1); Sodium 141 mmol/L (135-145); Total Protein 6.9 g/dL (6.5-8.0)
== END 2024-11-17 10:02 | disposition home or self-care (01) ==
LOC: HO.HHCL 10:01
PROVIDERS: Visit Provider Dietitian, Registered
DX: F43.10 Post-traumatic stress disorder, unspecified (principal)
CPT/HCPCS: 36415; 80053; 82248; 83036; 85025

== ENCOUNTER 2024-12-28 06:05 | Outpatient (REF) | payer MEDICAID, SELFPAY | END 2024-12-28 06:06 | disposition home or self-care (01) | LOC: CF 06:05 | PROVIDERS: Visit Provider Anesthesiology | DX: Z13.89 Encounter for screening for other disorder (principal) ==